=== PATIENT | male | born 1965 | race Caucasian/White ===

== ENCOUNTER → 2016-08-10 | Outpatient (CLI) | payer OTHER ==
[~2016-08-10] MED LIST: ASPEC81 PO; ASPI81TA28 PO; CARV3.122 PO; CHOL1000 PO; CYAN10005 PO; DOXY100C76 PO; FRCT/ PO; HYDR25TA4 PO; LISI-461 PO; PRLSR20 PO
[2016-08-10 17:56] LABS: BASO % 0.3 %; BASO ABS # 0.03 K/uL (0-0.2); COMPLETE YES; EOS % 2.4 %; HEMATOCRIT 48.8 % (42-52); IG% 0.2 %; LYMPH % 26.3 %; LYMPH ABS # 2.42 K/uL (1.2-3.4); MEAN CELL VOLUME 82.9 fL (80-100); MEAN CORPUSCULAR HEMOGLOBIN 29.9 pg (25-34); MEAN CORPUSCULAR HGB CONC 36.1 g/dl (32-36); MEAN PLATELET VOLUME 9.7 fL (7.4-10.4); MONO % 5.4 %; NEUT % 65.4 %; PLATELET COUNT 254 K/uL (130-400); RED BLOOD COUNT 5.89 M/uL (4.7-6.1)
[2016-08-10 18:48] LABS: LYME DISEASE AB IGG NEG (NEG)
[2016-08-10 18:56] LABS: LYME DISEASE AB IGM EQUIVOCAL (NEG)
[2016-08-17 01:56] LABS: 18KDIGG BAND NONREACTIVE (NONREACTIVE); 23KDIGG BAND NONREACTIVE (NONREACTIVE); 23KDIGM BAND NONREACTIVE (NONREACTIVE); 28KDIGG BAND NONREACTIVE (NONREACTIVE); 30KDIGG BAND NONREACTIVE (NONREACTIVE); 39KDIGG BAND NONREACTIVE (NONREACTIVE); 39KDIGM BAND NONREACTIVE (NONREACTIVE); 41KDIGG BAND REACTIVE (NONREACTIVE); 41KDIGM BAND REACTIVE (NONREACTIVE); 45KDIGG BAND NONREACTIVE (NONREACTIVE); 58KDIGG BAND NONREACTIVE (NONREACTIVE); 66KDIGG BAND NONREACTIVE (NONREACTIVE); 93KDIGG BAND NONREACTIVE (NONREACTIVE)
== END | disposition home or self-care (01) ==
LOC: C.LABPVFM 15:03
PROVIDERS: ATTEND Nurse Practitioner Family
DX: I10 Essential (primary) hypertension (principal); R07.9 Chest pain, unspecified

== ENCOUNTER 2016-08-14 13:40 | Inpatient (IN) | payer OTHER ==
[~2016-08-14] VITALS: Ht 170.2 cm; Wt 96.1 kg
[~2016-08-14 13:40] MED LIST changes: -ASPI81TA28 PO; -CARV3.122 PO; -CHOL1000 PO; -CYAN10005 PO; -DOXY100C76 PO; -FRCT/ PO; -HYDR25TA4 PO; -PRLSR20 PO
[2016-08-14] MEDS ORDERED: ONDANSETRON INJ 2 MG/ML 2 ML VIAL IV STA (13:52)
--- NOTE | 2016-08-14 14:02 | EMERGENCY ROOM VISIT NOTE ---
History Report prepared by Ana: Elizabeth Garcia Under the Supervision of: Dr. Grecia Waller M.D. First contact with patient: 13:50 Chief Complaint: ILLNESS Stated Complaint: LYME DISEASE, WEAK, DIZZY History of Present Illness The patient is a 51 year old male who presents to the Emergency Room with complaints of worsening weakness for the past several weeks. He reports he was first diagnosed with Lyme disease last January. He began to feel unwell again over the past few weeks and was placed on Doxycycline 3 days ago. He has also had more recent lab work done, but the western blot test has not come back yet, so his doctor told him to come to the ED if his symptoms worsened. In addition to weakness, the patient also complains of feeling lightheaded, experiencing headaches and intermittent chest pain and shortness of breath. The chest pain does not worsen on exertion. Ibuprofen taken last night provided some relief of his headache. The patient is a former smoker and admits to a history of hypertension. He denies any recent coughing or fevers. Source of History: patient Onset: past several weeks Position: other (global) Timing: worsening Associated Symptoms: + SOB, + chest pain, + headache, No cough, No fevers Review of Systems See HPI for pertinent positives & negatives. A total of 10 systems reviewed and were otherwise negative. Past Medical & Surgical Medical Problems: (1) Benign essential hypertension (2) Intractable headache Social History Smoking Status: Former Smoker Alcohol Use: occasionally Drug Use: none Marital Status: single Housing Status: lives with family Occupation Status: employed Current/Historical Medications Scheduled Aspirin (Aspirin Ec), 81 MG PO DAILY Carvedilol (Coreg), 3.125 MG PO DAILY Cholecalciferol (Vitamin D3), 1 TAB PO DAILY Cyanocobalamin (Vitamin B-12), 1,000 MCG PO DAILY Doxycycline Monohydrate (Monodox), 100 MG PO BID Hydrochlorothiazide (Hctz), 25 MG PO DAILY Lisinopril (Zestril), 10 MG PO DAILY Omeprazole (Prilosec), 20 MG PO DAILY Allergies Coded Allergies: No Known Allergies (Verified , 08/14/16) Physical Exam Vital Signs Date Time Temp Pulse Resp B/P Pulse Ox O2 Delivery O2 Flow Rate FiO2 08/14/16 18:04 74 16 120/74 95 08/14/16 16:38 74 16 118/76 97 08/14/16 15:10 74 18 120/80 97 08/14/16 14:57 76 08/14/16 14:49 97 Nasal Cannula 2.0 08/14/16 14:44 72 20 111/73 92 Room Air 08/14/16 13:43 36.4 88 18 137/97 98 Room Air Physical Exam Vital signs reviewed. General: Well-appearing 51 year old male, in no significant distress. HEENT: No scleral icterus, PERRLA, neck supple. Atraumatic. Cardiovascular: Regular rate and rhythm, no extra sounds. Pulmonary: Clear to auscultation bilaterally, normal work of breathing. Abdomen: Soft, nontender, nondistended, positive bowel sounds. Musculoskeletal: Atraumatic, no peripheral edema. Neurologic: Patient awake alert and oriented x 3, full strength in all 4 extremities. Cranial nerves 2 through 12 grossly intact. No meningeal signs. Skin: Warm, dry, no rash Medical Decision & Procedures ER Provider Diagnostic Interpretation: This X-Ray was reviewed and interpreted by myself and the radiologist. CHEST ONE VIEW PORTABLE IMPRESSION: No acute cardiopulmonary findings. Electronically signed by: Omero Browning M.D. 08/14/2016 2:17 PM Laboratory Results Test 08/14/16 14:13 08/14/16 14:16 08/14/16 14:34 08/14/16 16:50 Erythrocyte Sedimentation Rate 16 mm/hr (0-14) Total Creatine Kinase 84 U/L (39-308) Creatine Kinase MB 0.6 ng/ml (0.5-3.6) Creatine Kinase MB Ratio 0.7 (0-3.0) C-Reactive Protein 0.58 mg/dl (0-0.29) Thyroid Stimulating Hormone (TSH) 1.680 uIu/ml (0.300-4.500) Bedside D-Dimer > 450 ng/mlFEU (0-450) Bedside Troponin I 0.000 ng/ml (0-0.045) Urine Color YELLOW Urine Appearance CLOUDY (CLEAR) Urine pH 5.0 (4.5-7.5) Urine Specific [place] 1.013 (1.000-1.030) Urine Protein NEG (NEG) Urine Glucose (UA) NEG (NEG) Urine Ketones NEG (NEG) Urine Occult Blood NEG (NEG) Urine Nitrite NEG (NEG) Urine Bilirubin NEG (NEG) Urine Urobilinogen NEG (NEG) Urine Leukocyte Esterase NEG (NEG) Urine WBC (Auto) 0 /hpf (0-5) Urine RBC (Auto) 0-4 /hpf (0-4) Urine Hyaline Casts (Auto) 1-5 /lpf (0-5) Urine Epithelial Cells (Auto) 0-5 /lpf (0-5) Urine Bacteria (Auto) NEG (NEG) CSF Color RED CSF Appearance BLOODY CSF WBC 10 /uL (0-5) CSF RBC 6000 /uL (0) CSF Xanthrochromic NO XANTHOCHROMIA CSF Cell Count Tube # 4 CSF Mononuclear WBCs % 60.0 % CSF Polynuclear WBCs (%) 40.0 % CSF Chemistry Tube # 2 CSF Glucose 66 mg/dl (40-70) CSF Total Protein 70.4 mg/dl (15.0-45.0) Laboratory results per my review. Medications Administered Medications (Trade) Dose Ordered Sig/Rhea Route Start Time Stop Time Status Last Admin Dose Admin Ondansetron HCl (Zofran Inj) 4 mg NOW STAT IV 08/14/16 13:52 08/14/16 13:55 DC 08/14/16 14:41 4 MG Ketorolac Tromethamine 30 mg 30 mg NOW STAT IV 08/14/16 15:44 08/14/16 15:45 DC 08/14/16 15:51 30 MG Sodium Chloride (Nss 1000ml) 1,000 ml @ 999 mls/hr Q1H1M STAT IV 08/14/16 15:44 08/14/16 16:44 DC 08/14/16 15:52 999 MLS/HR Ceftriaxone Sodium 2 gm 2 gm NOW STAT IV 08/14/16 17:25 08/14/16 17:26 DC 08/14/16 17:57 2 GM Sodium Chloride (Nss 1000ml) 1,000 ml @ 999 mls/hr Q1H1M STAT IV 08/14/16 17:33 08/14/16 18:33 DC 08/14/16 17:57 999 MLS/HR ECG Indication: weakness Rate (beats per minute): 71 Rhythm: normal sinus (normal sinus rhythm) Findings: nonspecific-ST abn (Inferior, Lateral), no ectopy, other (Previous septal infarct) Change: no significant change (No change from previous EKG performed in June 2011) ED Course 1351: Past medical records reviewed. The patient was evaluated in room A10. A complete history and physical examination was performed. 1352: Zofran 4 mg IV. 1445: Nursing informed me the patients Oxygen is 92% and he is complaining of a headache. I will place orders. 1446: Dilaudid 1 mg IV. Medical Decision Weakness: Etiologies such as metabolic, infection, hypo/hyperglycemia, electrolyte abnormalities, cardiac sources, intracerebral event, toxicologic, neurologic, as well as others were entertained. This patient was evaluated and appeared to be in no significant distress. IV access was obtained and laboratory work was drawn. Laboratory work is fairly unrevealing including a normal WBC and negative cardiac enzymes. D-dimer is elevated. CT scan of the chest was performed and reveals no evidence of PE or focal lung consolidation. The patient did receive IV Zofran and IV hydration. He complained of persistent headache on my reevaluation between a 4 and an 8. Patient did receive 30 mg of IV Toradol and continued IV hydration. CT scan of the head had been performed earlier in the shift and was negative. The patient was signed out to Dr. Benitez at the change of shift, pending resolution of the headache. Please see his notes for further details. The patient and family are aware of the plan and agree. Impression Primary Impression: Atypical chest pain Additional Impression: Intractable headache Scribe Attestation The scribe's documentation has been prepared under my direction and personally reviewed by me in its entirety. I confirm that the note above accurately reflects all work, treatment, procedures, and medical decision making performed by me. Departure Information Referrals Lyly Lo C.R.N.P (PCP) Patient Instructions My [facility] Problem Qualifiers Additional Impression: Intractable headache Headache chronicity pattern: acute headache
--- NOTE | 2016-08-14 14:18 | DIAGNOSTIC IMAGING REPORT ---
CHEST ONE VIEW PORTABLE CLINICAL HISTORY: Weakness, fatigue and chest pain. COMPARISON STUDY: Chest radiograph June 21, [address] November 10, 2011. FINDINGS: Lung volumes are normal. No consolidation is identified. There is no pneumothorax or pleural effusion. Cardiac size is normal. Mediastinal contours are normal. There is no evidence of pulmonary edema. IMPRESSION: No acute cardiopulmonary findings. Electronically signed by: Omero Browning M.D. 08/14/2016 2:17 PM Dictated Date/Time: 08/14/2016 2:16 PM
[2016-08-14 14:23] LABS: BASO % 0.4 %; BASO ABS # 0.03 K/uL (0-0.2); COMPLETE YES; EOS % 2.9 %; HEMATOCRIT 47.6 % (42-52); IG% 0.4 %; LYMPH % 32.4 %; LYMPH ABS # 2.34 K/uL (1.2-3.4); MEAN CELL VOLUME 82.1 fL (80-100); MEAN CORPUSCULAR HGB CONC 36.6 g/dl (32-36); MONO % 6.1 %; NEUT % 57.8 %; PLATELET COUNT 230 K/uL (130-400); WHITE BLOOD COUNT 7.22 K/uL (4.8-10.8)
--- NOTE | 2016-08-14 14:35 | DIAGNOSTIC IMAGING REPORT ---
CT OF THE HEAD WITHOUT CONTRAST CLINICAL HISTORY: Headache. Dizzy. COMPARISON STUDY: Head CT and MRI of the brain May 29, 2008. CT DOSE: 537.48 mGy.cm TECHNIQUE: Helical axial images of the head were obtained without IV contrast. Automated exposure control was utilized for the study. FINDINGS: No acute intracranial hemorrhage, midline shift or mass effect is present. Brain findings normal. Ventricular system is normal. Basilar cisterns are patent. There are no extra-axial collections. Christensen-white differentiation is maintained. There are no findings to suggest acute dural sinus thrombosis or acute territorial infarct. There may be trace fluid within the right mastoid air cells. There are no significant calvarial abnormalities. Visualized portions of the sinuses are clear. IMPRESSION: No acute intracranial findings. Electronically signed by: Omero Browning M.D. 08/14/2016 2:34 PM Dictated Date/Time: 08/14/2016 2:32 PM
[2016-08-14] MEDS ORDERED: DOXY100C76 PO (14:40)
[2016-08-14] MEDS ORDERED: CARV3.122 PO (14:40)
[2016-08-14] MEDS ORDERED: CHOL1000 PO (14:40)
[2016-08-14] MEDS ORDERED: CYAN10005 PO (14:40)
[2016-08-14] MEDS ORDERED: PRLSR20 PO (14:40)
[2016-08-14] MEDS ORDERED: ASPI81TA28 PO (14:40)
[2016-08-14] MEDS ORDERED: HYDR25TA4 PO (14:40)
[2016-08-14 14:41] LABS: BUN/CREATININE RATIO 25.2 (10-20); CALCIUM 8.8 mg/dl (8.5-10.1); MAGNESIUM 2.2 mg/dl (1.8-2.4); POTASSIUM 3.9 mmol/L (3.5-5.1)
[2016-08-14] MEDS ORDERED: HYDROmorphone INJ 1 MG/ML SYR IV STA (14:46)
[2016-08-14 14:51] LABS: CKMB/CK RATIO 0.7 (0-3.0); THYROID STIMULATING HORMONE 1.68 uIu/ml (0.300-4.500)
[2016-08-14 14:58] LABS: URINE APPEARANCE CLOUDY (CLEAR); URINE BILIRUBIN NEG (NEG); URINE COLOR YELLOW; URINE EPITHELIAL CELL AUTO 0-5 /lpf (0-5); URINE NITRITE NEG (NEG); URINE SPECIFIC GRAVITY 1.013 (1.000-1.030); UROBILINOGEN NEG (NEG); ZZUR CULT IF INDIC CLEAN CATCH NO
[2016-08-14 15:00] LABS: MANUAL MICROSCOPIC REQUIRED? NO; REVIEW REQ? NO
[2016-08-14] MEDS ORDERED: OPTIRAY 320 IV PRN (15:00)
--- NOTE | 2016-08-14 15:38 | DIAGNOSTIC IMAGING REPORT ---
CT ANGIOGRAPHY OF THE CHEST, PULMONARY EMBOLUS PROTOCOL CLINICAL HISTORY: Chest pain and shortness of breath. Lyme disease. COMPARISON STUDY: Chest CT November 10, 2011 and chest radiograph performed earlier today. TECHNIQUE: Following IV administration of 119 mL of Optiray-320, helical axial images of the chest were obtained utilizing the pulmonary embolus protocol. Maximal intensity projections and sagittal and coronal reformats were viewed on an independent 3D workstation. IV contrast was administered without complication. CT DOSE: 573.20 mGy.cm FINDINGS: No pulmonary emboli are identified. There is no evidence of thoracic aortic dissection. The size of the heart is normal. A few prominent bilateral hilar lymph nodes are unchanged since CT of November 10, 2011. Linear and groundglass opacities favor atelectasis. There is no consolidation to suggest pneumonia. No pneumothorax or pleural effusion is present. Multiple pulmonary nodules are present. These are present on CT of November 10, 2011 and are likely benign. The bony thorax is unremarkable. There are gallstones within the gallbladder. IMPRESSION: 1. No pulmonary emboli identified. 2. No acute intrathoracic findings. 3. Cholelithiasis. Electronically signed by: Omero Browning M.D. 08/14/2016 3:37 PM Dictated Date/Time: 08/14/2016 3:27 PM
[2016-08-14] MEDS ORDERED: KETOROLAC TROMETHAMINE 30 MG/ML VIAL IV STA (15:44)
[2016-08-14] MEDS ORDERED: SODIUM CHLORIDE 0.9% 1000ML 1,000 ML IV STA ×2 (15:44→17:33)
--- NOTE | 2016-08-14 16:55 | EMERGENCY ROOM VISIT NOTE ---
ED Visit Note First contact with patient: 16:25 I received this patient at change of shift signout from Dr. Waller. Please see her note for complete history and physical. The patient is a 51-year-old male who presented to the emergency department for an evaluation of headache chest pain difficulty breathing and body aches. The patient states that he had a similar episode last fall and was diagnosed with Lyme disease. He went to see his primary care physician and was started on doxycycline a few days ago. He states that his symptoms are not improved and he feels that they're actually getting worse. The patient mostly complains of headache. He was seen by Dr. Waller and had a CT the chest chest x-ray and a CT the head as well as blood work. He was treated with IV fluids but was not feeling much better. I discussed the patient's laboratory and radiographic studies with him. He still states that the headache is the main complaint that he has. For this reason a lumbar puncture was undertaken to rule out meningitis including Lyme meningitis. The patient had a traumatic lumbar puncture but it started to clear from tube 1 to tube 4. Review the patient's MERCHANDISE DIRECTOR revealed an elevated protein in the CSF as well as elevated white blood cells in the CSF. This still could be consistent with a traumatic lumbar puncture however given the patient's symptoms he was given IV antibiotic. Because of ongoing symptoms I discussed this case with the on-call [facility] hospitalist group. They've agreed to evaluate the patient in the emergency apartment for further management and disposition. Lumbar Puncture Indication: Headache. Verbal consent was obtained after the risks and benefits were explained, including but not limited to headache, bleeding/clotting, scarring, infection, pain, and bone/joint/nerve damage. At this time, the risks of the procedure are less than the risks of NOT performing the procedure. A time out was taken and the correct patient and site identified. The patient was placed in the seated position and the back was prepped with betadine and draped in the standard fashion. The L3 intervertebral space was identified, anesthetized locally with 1 % lidocaine without epinephrine, and the spinal needle was inserted through the skin with the bevel parallel to the dural fibers. The needle was carefully advanced into the lumbar cistern and 4 tubes of blood tinged CSF was obtained. The stylet was replaced and the needle was removed. A bandaid was placed and the patient was placed in the supine position. The patient tolerated the procedure well and there were no complications.
[2016-08-14 17:03] LABS: CSF CHEMISTRY TUBE # 2
[2016-08-14 17:09] LABS: CSF APPEARANCE BLOODY; CSF COLOR RED
[2016-08-14 17:16] LABS: CSF APPEARANCE BLOODY; CSF COLOR RED; CSF XANTHOCHROMIC NO XANTHOCHROMIA
[2016-08-14 17:17] LABS: CSF MONONUC RELAT 52.6 %; CSF TOTAL PROTEIN 70.4 mg/dl (15.0-45.0)
[2016-08-14] MEDS ORDERED: CEFTRIAXONE SOD INJ 1 GM ADDVIAL IV STA (17:25)
[2016-08-14] MEDS ORDERED: ALUMINUM/MAGNESIUM/SIMETH (MAALOX MAX) 30 ML UDC PO PRN (19:00)
[2016-08-14] MEDS ORDERED: ONDANSETRON INJ 2 MG/ML 2 ML VIAL IV PRN (19:00)
[2016-08-14] MEDS ORDERED: ZOLPIDEM TARTRATE 5 MG TAB PO PRN (19:00)
[2016-08-14] MEDS: ACETAMINOPHEN 325 MG TAB PO PRN (20:47)
[2016-08-14 22:03] VITALS: BP 127/86; PULSE 74; TEMP 36.8; O2SAT 97; Ht 170.2 cm; Wt 96.1 kg
[2016-08-14] MEDS: KETOROLAC TROMETHAMINE 30 MG/ML VIAL IV PRN (22:55)
--- NOTE | 2016-08-14 23:49 | History and Physical ---
History & Physical Date & Time of Service: Aug 14, 2016 at 23:23 Chief Complaint: Intractable Headache Primary Care Physician: Lyly Lo C.R.N.P History of Present Illness Source: patient, family Patient is a 51-year-old male with a history of hypertension, Lyme disease, GERD , asymptomatic cholelithiasis, vitamin D deficiency, and vitamin B 12 deficiency , who presents to the ER with severe headache, diffuse arthralgias, and left sided chest pain with associated shortness of breath. He was diagnosed with and treated for acute Lyme disease back in January 2016 when he had headache and diffuse arthralgias as well as profound fatigue. He reports that 5 days ago , he developed the exact same symptoms with severe frontal headache, diffuse arthralgias, fatigue, as well as some left-sided chest pain with associated shortness of breath that initially was intermittent and then became constant for the last couple of days. The headache would come and go and did respond somewhat to ibuprofen at home. He denies fevers or a rash. The day after the symptoms started, he was seen by his PCP and had blood work which showed an equivocal Lyme IgM titer, and the Western blot is pending. When his symptoms persisted, he called his PCPs office 2 days later and he was called in doxycycline which she started the day prior to admission. When the headache persisted today, it prompted him to come to the emergency room. In the ER, he had a fairly normal CBC and CMP, was given IV fluids and Toradol which really helped his headache. He had a CT angiogram of the chest which was negative for PE or any other pulmonary or thoracic process. His troponin was negative, and his ECG did not show any acute signs of ischemia. Because of the persistent headache, the ER physician performed a lumbar puncture which was traumatic. On subsequent tubes of CSF, his white blood cell count was still somewhat bloody and had mildly elevated protein and 10 white blood cells. The fluid was sent for Lyme PCR and immunoblot. He was given Rocephin IV 2 g in the ER, and will be admitted for continued treatment for possible TELEVISION [employer]S TE[employer] Lyme disease and intractable headache. 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) Immunizations History of Influenza Vaccine: Yes History of Tetanus Vaccine?: Yes History of Pneumococcal: No History of Hepatitis B Vaccine: No Multi-Drug Resistant Organisms History of MDRO: No Allergies Coded Allergies: No Known Allergies (Verified , 08/14/16) Home Medications Scheduled Aspirin (Aspirin Ec), 81 MG PO DAILY Carvedilol (Coreg), 3.125 MG PO DAILY Cholecalciferol (Vitamin D3), 1 TAB PO DAILY Cyanocobalamin (Vitamin B-12), 1,000 MCG PO DAILY Doxycycline Monohydrate (Monodox), 100 MG PO BID Hydrochlorothiazide (Hctz), 25 MG PO DAILY Lisinopril (Zestril), 10 MG PO DAILY Omeprazole (Prilosec), 20 MG PO DAILY Review of Systems Constitutional: + fatigue, No chills, No fever, No sweats Eyes: No worsening of vision ENT: No hearing loss Respiratory: + shortness of breath, No cough Cardiovascular: + chest pain, No palpitations Abdomen: No GI bleeding, No constipation, No diarrhea, No nausea, No pain, No vomiting Musculoskeletal: + joint pain, + muscle pain Genitourinary - Male: No problem reported Neurologic: + problem reported (headache), No numbness/tingling, No paralysis, No weakness Psychiatric: No problem reported Endocrine: No problem reported Hematologic / Lymphatic: No problem reported Integumentary: No rash Allergic / Immunologic: No problem reported Physical Exam Vital Signs Date Time Temp Pulse Resp B/P Pulse Ox O2 Delivery O2 Flow Rate FiO2 08/14/16 22:03 36.8 74 16 127/86 97 Room Air 08/14/16 20:15 74 16 114/70 97 08/14/16 19:23 74 16 120/74 98 08/14/16 18:04 74 16 120/74 95 08/14/16 16:38 74 16 118/76 97 08/14/16 15:10 74 18 120/80 97 08/14/16 14:57 76 08/14/16 14:49 97 Nasal Cannula 2.0 08/14/16 14:44 72 20 111/73 92 Room Air 08/14/16 13:43 36.4 88 18 137/97 98 Room Air General Appearance: WD/WN, no apparent distress Head: normocephalic, atraumatic Eyes: normal inspection, PERRL, EOMI ENT: hearing grossly normal, pharynx normal Neck: supple, no adenopathy, thyroid normal, no JVD, no carotid bruits, trachea midline Respiratory/Chest: chest non-tender, lungs clear, normal breath sounds, no respiratory distress, no accessory muscle use Cardiovascular: regular rate, rhythm, no edema, no gallop, no murmur, normal peripheral pulses Abdomen/GI: normal bowel sounds, non tender, soft, no organomegaly, no pulsatile mass Back: normal inspection Extremities/Musculoskelatal: normal inspection, no calf tenderness, normal capillary refill, no pedal edema, normal range of motion Neurologic/Psych: title agent II-XII nml as tested, no motor/sensory deficits, alert, normal mood/affect, oriented x 3 Skin: normal color, warm/dry, no rash Lymphatic: no adenopathy Diagnostics Laboratory Results Results Past 24 Hours Test 08/14/16 14:13 08/14/16 14:16 08/14/16 14:34 08/14/16 16:50 Range/Units White Blood Count 7.22 4.8-10.8 K/uL Red Blood Count 5.80 4.7-6.1 M/uL Hemoglobin 17.4 14.0-18.0 g/dL Hematocrit 47.6 42-52 % Mean Corpuscular Volume 82.1 80-100 fL Mean Corpuscular Hemoglobin 30.0 25-34 pg Mean Corpuscular Hemoglobin Concent 36.6 32-36 g/dl Platelet Count 230 130-400 K/uL Mean Platelet Volume 9.0 7.4-10.4 fL Neutrophils (%) (Auto) 57.8 % Lymphocytes (%) (Auto) 32.4 % Monocytes (%) (Auto) 6.1 % Eosinophils (%) (Auto) 2.9 % Basophils (%) (Auto) 0.4 % Neutrophils # (Auto) 4.17 1.4-6.5 K/uL Lymphocytes # (Auto) 2.34 1.2-3.4 K/uL Monocytes # (Auto) 0.44 0.11-0.59 K/uL Eosinophils # (Auto) 0.21 0-0.5 K/uL Basophils # (Auto) 0.03 0-0.2 K/uL RDW Standard Deviation 38.5 36.4-46.3 fL RDW Coefficient of Variation 13.0 11.5-14.5 % Immature Granulocyte % (Auto) 0.4 % Immature Granulocyte # (Auto) 0.03 0.00-0.02 K/uL Erythrocyte Sedimentation Rate 16 0-14 mm/hr Sodium Level 137 136-145 mmol/L Potassium Level 3.9 3.5-5.1 mmol/L Chloride Level 101 98-107 mmol/L Carbon Dioxide Level 31 21-32 mmol/L Anion Gap 5.0 3-11 mmol/L Blood Urea Nitrogen 25 7-18 mg/dl Creatinine 1.00 0.60-1.40 mg/dl Est Creatinine Clear Calc Drug Dose 98.7 ml/min Estimated GFR () 102.0 Estimated GFR (Non- 88.0 BUN/Creatinine Ratio 25.2 10-20 Random Glucose 120 70-99 mg/dl Calcium Level 8.8 8.5-10.1 mg/dl Magnesium Level 2.2 1.8-2.4 mg/dl Total Bilirubin 1.4 0.2-1 mg/dl Direct Bilirubin 0.3 0-0.2 mg/dl Aspartate Amino Transf (AST/SGOT) 11 15-37 U/L Alanine Aminotransferase (ALT/SGPT) 30 12-78 U/L Alkaline Phosphatase 90 45-117 U/L Total Creatine Kinase 84 39-308 U/L Creatine Kinase MB 0.6 0.5-3.6 ng/ml Creatine Kinase MB Ratio 0.7 0-3.0 C-Reactive Protein 0.58 0-0.29 mg/dl Total Protein 8.3 6.4-8.2 gm/dl Albumin 4.2 3.4-5.0 gm/dl Thyroid Stimulating Hormone (TSH) 1.680 0.300-4.500 uIu/ml Bedside D-Dimer > 450 0-450 ng/mlFEU Bedside Troponin I 0.000 0-0.045 ng/ml Urine Color YELLOW Urine Appearance CLOUDY CLEAR Urine pH 5.0 4.5-7.5 Urine Specific [place] 1.013 1.000-1.030 Urine Protein NEG NEG Urine Glucose (UA) NEG NEG Urine Ketones NEG NEG Urine Occult Blood NEG NEG Urine Nitrite NEG NEG Urine Bilirubin NEG NEG Urine Urobilinogen NEG NEG Urine Leukocyte Esterase NEG NEG Urine WBC (Auto) 0 0-5 /hpf Urine RBC (Auto) 0-4 0-4 /hpf Urine Hyaline Casts (Auto) 1-5 0-5 /lpf Urine Epithelial Cells (Auto) 0-5 0-5 /lpf Urine Bacteria (Auto) NEG NEG CSF Color RED CSF Appearance BLOODY CSF WBC 10 0-5 /uL CSF RBC 6000 0 /uL CSF Xanthrochromic NO XANTHOCHROMIA CSF Cell Count Tube # 4 CSF Mononuclear WBCs % 60.0 % CSF Polynuclear WBCs (%) 40.0 % CSF Chemistry Tube # 2 CSF Glucose 66 40-70 mg/dl CSF Total Protein 70.4 15.0-45.0 mg/dl Test 08/14/16 18:51 Range/Units Microbiology Results 08/14/16 Gram Stain - Final, Resulted 08/14/16 CSF Culture, Resulted Pending Diagnostic Radiology Head CT negative CT angiogram chest-only shows cholelithiasis, negative for PE CXR normal EKG ECG with normal sinus rhythm, possible septal infarct changed from previous in June 2011 Review of outpatient record shows he had a normal stress echocardiogram in November 2011 Impression Assessment and Plan Patient is a 51-year-old male with a history of hypertension, Lyme disease, GERD , asymptomatic cholelithiasis, vitamin D deficiency, and vitamin B 12 deficiency , who presents to the ER with severe headache, diffuse arthralgias, and left sided chest pain with associated shortness of breath. The day after the symptoms started, he was seen by his PCP and had blood work which showed an equivocal Lyme IgM titer, and the Western blot is pending. When his symptoms persisted, he called his PCPs office 2 days later and he was called in doxycycline which she started the day prior to admission. When the headache persisted today, it prompted him to come to the emergency room. In the ER, he had a fairly normal CBC and CMP, was given IV fluids and Toradol which really helped his headache. He had a CT angiogram of the chest which was negative for PE or any other pulmonary or thoracic process. His troponin was negative, and his ECG did not show any acute signs of ischemia. Lumbar puncture was traumatic. On subsequent tubes of CSF, his white blood cell count was still somewhat bloody and had mildly elevated protein and 10 white blood cells. The fluid was sent for Lyme testing. Intractable headache, arthralgias, equivocal Lyme IgM-He was given Rocephin IV 2 g in the ER, and will be admitted for continued treatment for possible TELE[employer]S TE[employer] Lyme disease and intractable headache. -Continue Toradol when necessary headache -Follow up on CSF studies including Lyme PCR -Follow up on Lyme disease Western blot performed as an outpatient several days ago -Consult infectious disease for further recommendations on antibiotic regimen Hypertension, chest pain with associated shortness of breath-his blood pressure is stable. ECG with possible new septal infarct since 2011, had normal stress echocardiogram in November 2011 and has been asymptomatic since then. Likely not a significant finding. His ongoing chest pain is constant in nature for several days and his initial troponin was negative, making this not likely to be cardiac in nature. It is likely musculoskeletal related to his probable Lyme disease. -Continue carvedilol, hydrochlorothiazide, and lisinopril as well as baby aspirin GERD-stable -Continue PPI Vitamin D deficiency, vitamin B12 deficiency-stable -Continue by mouth B12 and vitamin D DVT prophylaxis-SCDs Disposition-full code Advanced Directives Existing Living Will: No Existing Power of Collection Systems Modeler: No VTE Prophylaxis VTE Risk Assessment Done? Y/N: Yes Risk Level: Low Additional Copies To Lyly Lo [email or web address]
[2016-08-15] VITALS: O2SAT 97
[2016-08-15 07:32] LABS: BASO % 0.4 %; BASO ABS # 0.03 K/uL (0-0.2); COMPLETE YES; EOS % 2.6 %; HEMATOCRIT 40.1 % (42-52); IG% 0.4 %; LYMPH % 39.1 %; LYMPH ABS # 2.84 K/uL (1.2-3.4); MEAN CELL VOLUME 81.3 fL (80-100); MEAN CORPUSCULAR HEMOGLOBIN 29.8 pg (25-34); MEAN CORPUSCULAR HGB CONC 36.7 g/dl (32-36); MEAN PLATELET VOLUME 8.9 fL (7.4-10.4); MONO % 5.4 %; NEUT % 52.1 %; PLATELET COUNT 203 K/uL (130-400); RED BLOOD COUNT 4.93 M/uL (4.7-6.1); WHITE BLOOD COUNT 7.26 K/uL (4.8-10.8)
[2016-08-15 08:04] VITALS: BP 111/75; PULSE 58; TEMP 36.6; O2SAT 97
[2016-08-15 08:08] LABS: BUN/CREATININE RATIO 31.4 (10-20); CALCIUM 8.4 mg/dl (8.5-10.1)
[2016-08-15] MEDS: PANTOprazole SOD 40 MG TAB PO SCH (08:21)
[2016-08-15] MEDS: CHOLECALCIFEROL 1000 INTER.UNIT TAB PO SCH (08:22)
[2016-08-15] MEDS: CYANOCOBALAMIN 500 MCG TAB (VIT B-12) PO SCH (08:22)
[2016-08-15] MEDS: CARVEDILOL 3.125 MG TAB PO SCH (08:22)
[2016-08-15] MEDS: LISINOPRIL 10 MG TAB PO SCH (08:22)
[2016-08-15] MEDS: HYDROCHLOROTHIAZIDE 25 MG TAB PO SCH (08:23)
[2016-08-15] MEDS: ASPIRIN 81 MG ECTAB PO SCH (08:23)
--- NOTE | 2016-08-15 09:56 | Progress Note ---
Progress Note Date of Service Aug 15, 2016. Progress Note ID Consult Dictated # [id number] A/P: 1. Meningitis - Lyme vs viral -continue ctx pending lyme studies, clinically improved -will follow, thank you
[2016-08-15] MEDS: KETOROLAC TROMETHAMINE 30 MG/ML VIAL IV PRN ×2 (11:56→20:45)
--- NOTE | 2016-08-15 13:17 | Progress Note ---
Subjective Date of Service: Aug 15, 2016. Subjective Pt evaluation today including: conversation w/ patient, physical exam, chart review, lab review, review of studies, review of inpatient medication list Pt reports feeling better Mild THOMAS No fevers or chills No joint pains Denies any other concerns Problem List Medical Problems: (1) Atypical chest pain Status: Acute (2) Headache behind the eyes Status: Acute Review of Systems Constitutional: No chills, No fever Respiratory: No cough, No dyspnea on exertion, No shortness of breath, No sputum, No wheezing Cardiac: No chest pain, No orthopnea Abdomen: No diarrhea, No nausea, No pain, No vomiting Musculoskeletal: No joint pain, No muscle pain Male : No dysuria, No urinary frequency Objective Vital Signs Date Time Temp Pulse Resp B/P Pulse Ox O2 Delivery O2 Flow Rate FiO2 08/15/16 08:04 36.6 58 19 111/75 97 Room Air 08/15/16 08:00 Room Air 08/15/16 00:00 97 Room Air 08/14/16 22:03 36.8 74 16 127/86 97 Room Air 08/14/16 20:15 74 16 114/70 97 08/14/16 19:23 74 16 120/74 98 08/14/16 18:04 74 16 120/74 95 08/14/16 16:38 74 16 118/76 97 08/14/16 15:10 74 18 120/80 97 08/14/16 14:57 76 08/14/16 14:49 97 Nasal Cannula 2.0 08/14/16 14:44 72 20 111/73 92 Room Air 08/14/16 13:43 36.4 88 18 137/97 98 Room Air Physical Exam General Appearance: WD/WN, no apparent distress Neck: supple, no adenopathy Respiratory/Chest: lungs clear, normal breath sounds Cardiovascular: no edema, no gallop Abdomen: non tender, soft Neurologic/Psychiatric: alert, normal mood/affect, oriented x 3 Laboratory Results Last 24 Hours Test 08/14/16 14:13 08/14/16 14:16 08/14/16 14:34 08/14/16 16:50 White Blood Count 7.22 K/uL Red Blood Count 5.80 M/uL Hemoglobin 17.4 g/dL Hematocrit 47.6 % Mean Corpuscular Volume 82.1 fL Mean Corpuscular Hemoglobin 30.0 pg Mean Corpuscular Hemoglobin Concent 36.6 g/dl Platelet Count 230 K/uL Mean Platelet Volume 9.0 fL Neutrophils (%) (Auto) 57.8 % Lymphocytes (%) (Auto) 32.4 % Monocytes (%) (Auto) 6.1 % Eosinophils (%) (Auto) 2.9 % Basophils (%) (Auto) 0.4 % Neutrophils # (Auto) 4.17 K/uL Lymphocytes # (Auto) 2.34 K/uL Monocytes # (Auto) 0.44 K/uL Eosinophils # (Auto) 0.21 K/uL Basophils # (Auto) 0.03 K/uL RDW Standard Deviation 38.5 fL RDW Coefficient of Variation 13.0 % Immature Granulocyte % (Auto) 0.4 % Immature Granulocyte # (Auto) 0.03 K/uL Erythrocyte Sedimentation Rate 16 mm/hr Sodium Level 137 mmol/L Potassium Level 3.9 mmol/L Chloride Level 101 mmol/L Carbon Dioxide Level 31 mmol/L Anion Gap 5.0 mmol/L Blood Urea Nitrogen 25 mg/dl Creatinine 1.00 mg/dl Est Creatinine Clear Calc Drug Dose 98.7 ml/min Estimated GFR () 102.0 Estimated GFR (Non- 88.0 BUN/Creatinine Ratio 25.2 Random Glucose 120 mg/dl Calcium Level 8.8 mg/dl Magnesium Level 2.2 mg/dl Total Bilirubin 1.4 mg/dl Direct Bilirubin 0.3 mg/dl Aspartate Amino Transf (AST/SGOT) 11 U/L Alanine Aminotransferase (ALT/SGPT) 30 U/L Alkaline Phosphatase 90 U/L Total Creatine Kinase 84 U/L Creatine Kinase MB 0.6 ng/ml Creatine Kinase MB Ratio 0.7 C-Reactive Protein 0.58 mg/dl Total Protein 8.3 gm/dl Albumin 4.2 gm/dl Thyroid Stimulating Hormone (TSH) 1.680 uIu/ml Bedside D-Dimer > 450 ng/mlFEU Bedside Troponin I 0.000 ng/ml Urine Color YELLOW Urine Appearance CLOUDY Urine pH 5.0 Urine Specific [place] 1.013 Urine Protein NEG Urine Glucose (UA) NEG Urine Ketones NEG Urine Occult Blood NEG Urine Nitrite NEG Urine Bilirubin NEG Urine Urobilinogen NEG Urine Leukocyte Esterase NEG Urine WBC (Auto) 0 /hpf Urine RBC (Auto) 0-4 /hpf Urine Hyaline Casts (Auto) 1-5 /lpf Urine Epithelial Cells (Auto) 0-5 /lpf Urine Bacteria (Auto) NEG CSF Color RED CSF Appearance BLOODY CSF WBC 10 /uL CSF RBC 6000 /uL CSF Xanthrochromic NO XANTHOCHROMIA CSF Cell Count Tube # 4 CSF Mononuclear WBCs % 60.0 % CSF Polynuclear WBCs (%) 40.0 % CSF Chemistry Tube # 2 CSF Glucose 66 mg/dl CSF Total Protein 70.4 mg/dl Test 08/15/16 06:54 White Blood Count 7.26 K/uL Red Blood Count 4.93 M/uL Hemoglobin 14.7 g/dL Hematocrit 40.1 % Mean Corpuscular Volume 81.3 fL Mean Corpuscular Hemoglobin 29.8 pg Mean Corpuscular Hemoglobin Concent 36.7 g/dl Platelet Count 203 K/uL Mean Platelet Volume 8.9 fL Neutrophils (%) (Auto) 52.1 % Lymphocytes (%) (Auto) 39.1 % Monocytes (%) (Auto) 5.4 % Eosinophils (%) (Auto) 2.6 % Basophils (%) (Auto) 0.4 % Neutrophils # (Auto) 3.78 K/uL Lymphocytes # (Auto) 2.84 K/uL Monocytes # (Auto) 0.39 K/uL Eosinophils # (Auto) 0.19 K/uL Basophils # (Auto) 0.03 K/uL RDW Standard Deviation 38.2 fL RDW Coefficient of Variation 12.8 % Immature Granulocyte % (Auto) 0.4 % Immature Granulocyte # (Auto) 0.03 K/uL Sodium Level 139 mmol/L Potassium Level 4.0 mmol/L Chloride Level 105 mmol/L Carbon Dioxide Level 25 mmol/L Anion Gap 9.0 mmol/L Blood Urea Nitrogen 31 mg/dl Creatinine 1.00 mg/dl Est Creatinine Clear Calc Drug Dose 98.7 ml/min Estimated GFR () 102.0 Estimated GFR (Non- 88.0 BUN/Creatinine Ratio 31.4 Random Glucose 96 mg/dl Calcium Level 8.4 mg/dl Magnesium Level 2.0 mg/dl Total Bilirubin 0.7 mg/dl Direct Bilirubin 0.1 mg/dl Aspartate Amino Transf (AST/SGOT) 10 U/L Alanine Aminotransferase (ALT/SGPT) 21 U/L Alkaline Phosphatase 74 U/L Total Protein 6.6 gm/dl Albumin 3.3 gm/dl Vitamin B12 Level 918 pg/mL Assessment and Plan Patient is a 51-year-old male with a history of hypertension, Lyme disease, GERD , asymptomatic cholelithiasis, vitamin D deficiency, and vitamin B 12 deficiency , who presents to the ER with severe headache, diffuse arthralgias, and left sided chest pain with associated shortness of breath. The day after the symptoms started, he was seen by his PCP and had blood work which showed an equivocal Lyme IgM titer, and the Western blot is pending. When his symptoms persisted, he called his PCPs office 2 days later and he was called in doxycycline which she started the day prior to admission. When the headache persisted today, it prompted him to come to the emergency room. In the ER, he had a fairly normal CBC and CMP, was given IV fluids and Toradol which really helped his headache. He had a CT angiogram of the chest which was negative for PE or any other pulmonary or thoracic process. His troponin was negative, and his ECG did not show any acute signs of ischemia. Lumbar puncture was traumatic. On subsequent tubes of CSF, his white blood cell count was still somewhat bloody and had mildly elevated protein and 10 white blood cells. 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 -Continue Toradol when necessary headache, reports THOMAS mild -Follow up on CSF studies including Lyme PCR -Follow up on Lyme disease Western blot performed as an outpatient several days ago -Consult infectious disease, appreciate recs, await cx results Hypertension, chest pain with associated shortness of breath-his blood pressure is stable. ECG with possible new septal infarct since 2011, had normal stress echocardiogram in November 2011 and has been asymptomatic since then. Likely not a significant finding. His ongoing chest pain is constant in nature for several days and his initial troponin was negative, making this not likely to be cardiac in nature. It is likely musculoskeletal related to his probable Lyme disease. -Continue carvedilol, hydrochlorothiazide, and lisinopril as well as baby aspirin GERD-stable -Continue PPI Vitamin D deficiency, vitamin B12 deficiency-stable -Continue by mouth B12 and vitamin D DVT prophylaxis-SCDs FULL CODE
--- NOTE | 2016-08-15 14:54 | INFECT. DISEASE CONSULTATION ---
DATE OF CONSULTATION: 08/15/2016 REQUESTING PHYSICIAN: Dr. Mabry. HISTORY OF PRESENT ILLNESS: This is a 51-year-old gentleman who was admitted to the hospital after he had worsening headache. He states that he began feeling symptoms of fatigue, muscle pain and joint pain last Tuesday. He did leave work early and did not return to work throughout the week. The symptoms continued to worsen. He just followed up at his primary care office on Tuesday and was started on doxycycline for suspected Lyme disease. The Lyme titer was done at that time, however, the results are pending. He continued to feel unwell and on Tuesday, presented to the Emergency Room with worsening headache. He did undergo a lumbar puncture in the Emergency Room, he had 38 white blood cells and an elevated protein at 70. His CSF culture is so far negative. He also was having some intermittent chest pain and a CAT scan of the chest was done. This was unremarkable for PE or pneumonia. He was started empirically on Rocephin. His sed rate was mildly elevated at 16; however, he did not have fever or leukocytosis. On my examination today, he states he is feeling significantly better. His headache is resolved; however, he did have pain medication overnight. He denies any arthralgias or myalgias. He denies any recent tick bites or rashes; however, he was treated for Lyme disease in January of 2016. He did have a course of doxycycline and responded well to this. He states that these symptoms are similar; however, much worse than they were in January. He is tolerating Rocephin well. He denies any chest pain, cough or shortness of breath on my examination. He denies any fevers or chills. His headache is gone. He denies any neck stiffness. He has no visual changes. He denies any rashes. He denies any nausea, vomiting, diarrhea or abdominal pain. He has no sick contacts. All remaining review of systems are reviewed and are negative except for as noted above. PAST MEDICAL HISTORY: Significant for hypertension, cholelithiasis, GERD, vitamin D deficiency and vitamin B12 deficiency. PAST SURGICAL HISTORY: Significant for left knee surgery, right rotator cuff repair, partial colectomy and right inguinal hernia repair. FAMILY HISTORY: Noncontributory. SOCIAL HISTORY: Significant for history of tobacco use, but he recently quit. He drinks occasionally. He denies any drug use. 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 He is and lives with his family. He is an avid candis and is outdoors frequently. ALLERGIES: He has no known drug allergies. CURRENT MEDICATIONS: Include Rocephin, aspirin, Coreg, vitamin D, vitamin B12, hydrochlorothiazide, lisinopril, Protonix, Tylenol, Maalox, Zofran, Ambien, and Toradol. PHYSICAL EXAMINATION: VITAL SIGNS: He is afebrile since admission, pulse 58, respiratory rate 19, blood pressure is 111/75 and oxygen saturation is 97% on room air. GENERAL: He is awake, alert and oriented x3. He is in no acute distress. HEENT: Mucous membranes are moist. Extraocular muscles are intact. There is no nuchal rigidity. HEART: Regular. LUNGS: Clear bilaterally. ABDOMEN: Soft and nondistended. EXTREMITIES: There is no lower extremity edema. SKIN: Without rash. LABORATORY STUDIES: CBC today reveals a white blood cell count of 7.2, hemoglobin 14.7, platelets are 203. Sed rate was mildly elevated at 16. CRP is mildly elevated at 0.5. Chemistry panel today reveals a sodium of 139, potassium 4.0, chloride 105, bicarbonate 25, BUN 31, creatinine 1.0, and glucose is 96. Urinalysis was negative. CSF studies showed 38 white blood cells and a protein of 70. Lyme titer is pending. CSF culture is negative to date. Previous Lyme titer done as an outpatient on the is pending as well. IMAGING DATA: CT of the chest was unremarkable. CT of the head was unremarkable. ASSESSMENT AND PLAN: 1. Meningitis either secondary to Lyme or viral etiology. Pending the results of his lab studies, he should remain on Rocephin. He has had significant improvement since admission to the hospital. We will follow along with you. Thank you for this consultation.
[2016-08-15 16:25] VITALS: BP 132/89; PULSE 79; TEMP 36.9; O2SAT 97
[2016-08-15] MEDS: ACETAMINOPHEN 325 MG TAB PO PRN (17:10)
[2016-08-15] MEDS: CEFTRIAXONE SOD INJ 2,000 MG in DEXTROSE 5% 50ML 50 ML IV SCH (17:52)
[2016-08-15 23:50] VITALS: BP 150/82; PULSE 66; TEMP 36.6; O2SAT 96
[2016-08-16 07:41] VITALS: BP 107/72; PULSE 59; TEMP 36.4; O2SAT 96
[2016-08-16] MEDS: CYANOCOBALAMIN 500 MCG TAB (VIT B-12) PO SCH (08:26)
[2016-08-16] MEDS: ASPIRIN 81 MG ECTAB PO SCH (08:26)
[2016-08-16] MEDS: CARVEDILOL 3.125 MG TAB PO SCH (08:27)
[2016-08-16] MEDS: CHOLECALCIFEROL 1000 INTER.UNIT TAB PO SCH (08:27)
[2016-08-16] MEDS: HYDROCHLOROTHIAZIDE 25 MG TAB PO SCH (08:27)
[2016-08-16] MEDS: PANTOprazole SOD 40 MG TAB PO SCH (08:27)
[2016-08-16] MEDS: LISINOPRIL 10 MG TAB PO SCH (08:27)
[2016-08-16] MEDS: KETOROLAC TROMETHAMINE 30 MG/ML VIAL IV PRN ×2 (09:32→15:56)
[2016-08-16 09:33] VITALS: BP 125/74; PULSE 78; TEMP 36.7; O2SAT 96
--- NOTE | 2016-08-16 10:55 | Progress Note ---
Subjective Date of Service: Aug 16, 2016. Subjective Pt evaluation today including: conversation w/ patient, conversation w/ family , physical exam, chart review, lab review pt states he is not feeling well this morning, woke up and felt fine but then had return of THOMAS and felt dizzy, was given toradol with relief. No fevers, no visual changes, no neck stiffness. remains on ctx, tolerating well. lyme csf studies pending. Oupt lyme titer was equiv, WB pending. No labs today. All remaining ros reviewed and are negative. Problem List Medical Problems: (1) Atypical chest pain Status: Acute (2) Headache behind the eyes Status: Acute Objective Vital Signs Date Time Temp Pulse Resp B/P Pulse Ox O2 Delivery O2 Flow Rate FiO2 08/16/16 10:11 Room Air 08/16/16 09:33 36.7 78 20 125/74 96 Room Air 08/16/16 07:41 36.4 59 16 107/72 96 Room Air 08/16/16 00:00 Room Air 08/15/16 23:50 36.6 66 18 150/82 96 Room Air 08/15/16 20:00 Room Air 08/15/16 16:25 36.9 79 18 132/89 97 Room Air 08/15/16 15:25 Room Air Physical Exam General Appearance: WD/WN, no apparent distress Eyes: normal inspection, EOMI ENT: + pertinent finding (no nuchal rigidity) Neck: supple Respiratory/Chest: lungs clear, normal breath sounds, no respiratory distress Cardiovascular: regular rate, rhythm, no edema Abdomen: non tender, soft Extremities: non-tender, normal inspection, no pedal edema Neurologic/Psychiatric: alert, oriented x 3 Skin: normal color Laboratory Results Item Value Date Time Gram Stain - Final Resulted 08/14/16 1650 Cerebral Spinal Fluid Assessment and Plan (1) Meningitis Assessment & Plan: will continue ctx for now, follow cultures and lyme studies
--- NOTE | 2016-08-16 11:38 | Progress Note ---
Subjective Date of Service: Aug 16, 2016. Subjective Pt evaluation today including: conversation w/ patient, physical exam, chart review, lab review, review of studies, review of inpatient medication list Denies any further joint pain but states headache comes and goes but not as bad as before Denies any visual changes or neck pain No fevers or chills noted Problem List Medical Problems: (1) Atypical chest pain Status: Acute (2) Headache behind the eyes Status: Acute Review of Systems Constitutional: No chills, No fever Eyes: No eye pain, No worsening of vision Respiratory: No cough, No sputum Cardiac: No chest pain Abdomen: No diarrhea, No nausea, No pain, No vomiting Musculoskeletal: No joint pain, No muscle pain Male : No dysuria, No urinary frequency Psychiatric: No anhedonism, No anxiety Objective Vital Signs Date Time Temp Pulse Resp B/P Pulse Ox O2 Delivery O2 Flow Rate FiO2 08/16/16 10:11 Room Air 08/16/16 09:33 36.7 78 20 125/74 96 Room Air 08/16/16 07:41 36.4 59 16 107/72 96 Room Air 08/16/16 00:00 Room Air 08/15/16 23:50 36.6 66 18 150/82 96 Room Air 08/15/16 20:00 Room Air 08/15/16 16:25 36.9 79 18 132/89 97 Room Air 08/15/16 15:25 Room Air Physical Exam General Appearance: WD/WN, no apparent distress Neck: supple, no adenopathy Respiratory/Chest: lungs clear, normal breath sounds Cardiovascular: no edema, no gallop Abdomen: non tender, soft Neurologic/Psychiatric: alert, oriented x 3 Assessment and Plan Patient is a 51-year-old male with a history of hypertension, Lyme disease, GERD , asymptomatic cholelithiasis, vitamin D deficiency, and vitamin B 12 deficiency , who presents to the ER with severe headache, diffuse arthralgias, and left sided chest pain with associated shortness of breath. The day after the symptoms started, he was seen by his PCP and had blood work which showed an equivocal Lyme IgM titer, and the Western blot is pending. When his symptoms persisted, he called his PCPs office 2 days later and he was called in doxycycline which she started the day prior to admission. When the headache persisted today, it prompted him to come to the emergency room. In the ER, he had a fairly normal CBC and CMP, was given IV fluids and Toradol which really helped his headache. He had a CT angiogram of the chest which was negative for PE or any other pulmonary or thoracic process. His troponin was negative, and his ECG did not show any acute signs of ischemia. Lumbar puncture was traumatic. On subsequent tubes of CSF, his white blood cell count was still somewhat bloody and had mildly elevated protein and 10 white blood cells. 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 -Continue Toradol when necessary headache, reports THOMAS mild -Follow up on CSF studies including Lyme PCR, CSF cx NTD -Follow up on Lyme disease Western blot performed as an outpatient several days ago -Consult infectious disease, appreciate recs Hypertension, chest pain with associated shortness of breath-his blood pressure is stable. ECG with possible new septal infarct since 2011, had normal stress echocardiogram in November 2011 and has been asymptomatic since then. Likely not a significant finding. His ongoing chest pain is constant in nature for several days and his initial troponin was negative, making this not likely to be cardiac in nature. It is likely musculoskeletal related to his probable Lyme disease. -Continue carvedilol, hydrochlorothiazide, and lisinopril as well as baby aspirin GERD-stable -Continue PPI Vitamin D deficiency, vitamin B12 deficiency-stable -Continue by mouth B12 and vitamin D DVT prophylaxis-SCDs FULL CODE
[2016-08-16 16:31] VITALS: BP 124/85; PULSE 70; TEMP 36.7; O2SAT 95
[2016-08-16 16:57] VITALS: O2SAT 98
[2016-08-16] MEDS: CEFTRIAXONE SOD INJ 2,000 MG in DEXTROSE 5% 50ML 50 ML IV SCH (17:46)
[2016-08-17] VITALS: BP 134/87; PULSE 68; TEMP 36.4; O2SAT 94
[2016-08-17] MEDS: KETOROLAC TROMETHAMINE 30 MG/ML VIAL IV PRN ×2 (01:46→13:19)
[2016-08-17 07:26] VITALS: BP 94/59; PULSE 60; TEMP 36.5; O2SAT 96
[2016-08-17] MEDS: CHOLECALCIFEROL 1000 INTER.UNIT TAB PO SCH (08:11)
[2016-08-17] MEDS: PANTOprazole SOD 40 MG TAB PO SCH (08:11)
[2016-08-17] MEDS: CYANOCOBALAMIN 500 MCG TAB (VIT B-12) PO SCH (08:11)
[2016-08-17] MEDS: HYDROCHLOROTHIAZIDE 25 MG TAB PO SCH (08:12)
[2016-08-17] MEDS: ASPIRIN 81 MG ECTAB PO SCH (08:12)
[2016-08-17] MEDS: CARVEDILOL 3.125 MG TAB PO SCH (08:12)
[2016-08-17] MEDS: LISINOPRIL 10 MG TAB PO SCH (08:12)
[2016-08-17 08:15] VITALS: BP 118/83; PULSE 60
--- NOTE | 2016-08-17 09:44 | Progress Note ---
Subjective Date of Service: Aug 17, 2016. Subjective pt remains afebrile. tolerating ctx. CSF culture remains negative. lyme pcr is pending, outpt lyme Western blot from 08/10 is negative, 1/3 IgM bands, 1/10 IgG bands. No am labs to review. no overnight events. Problem List Medical Problems: (1) Atypical chest pain Status: Acute (2) Headache behind the eyes Status: Acute Objective Vital Signs Date Time Temp Pulse Resp B/P Pulse Ox O2 Delivery O2 Flow Rate FiO2 08/17/16 09:41 Room Air 08/17/16 08:15 60 118/83 08/17/16 07:26 36.5 60 16 94/59 96 Room Air 08/17/16 01:40 Room Air 08/17/16 00:00 36.4 68 16 134/87 94 Room Air 08/16/16 16:57 98 Room Air 08/16/16 16:31 36.7 70 16 124/85 95 Room Air 08/16/16 10:11 Room Air Laboratory Results Item Value Date Time Gram Stain - Final Complete 08/14/16 1650 Cerebral Spinal Fluid Assessment and Plan (1) Meningitis Assessment & Plan: suspect viral etiology, lyme pcr pending. western blot negative. csf culture negative.
[2016-08-17 15:54] VITALS: BP 107/71; PULSE 56; TEMP 36.6; O2SAT 95
[2016-08-17 16:00] VITALS: O2SAT 98
--- NOTE | 2016-08-17 16:05 | Progress Note ---
Subjective Date of Service: Aug 17, 2016. Subjective Pt evaluation today including: conversation w/ patient, physical exam, chart review, lab review, review of studies, review of inpatient medication list No THOMAS today Feeling better No fevers or chills or neck pain Resting comfortably in bed Problem List Medical Problems: (1) Atypical chest pain Status: Acute (2) Headache behind the eyes Status: Acute Review of Systems Constitutional: No chills, No fever Respiratory: No cough, No shortness of breath, No sputum, No wheezing Cardiac: No chest pain Abdomen: No constipation, No diarrhea, No nausea, No pain, No vomiting Musculoskeletal: No joint pain, No muscle pain Male : No dysuria, No urinary frequency Objective Vital Signs Date Time Temp Pulse Resp B/P Pulse Ox O2 Delivery O2 Flow Rate FiO2 08/17/16 15:54 36.6 56 16 107/71 95 Room Air 08/17/16 09:41 Room Air 08/17/16 08:15 60 118/83 08/17/16 07:26 36.5 60 16 94/59 96 Room Air 08/17/16 01:40 Room Air 08/17/16 00:00 36.4 68 16 134/87 94 Room Air 08/16/16 16:57 98 Room Air 08/16/16 16:31 36.7 70 16 124/85 95 Room Air Physical Exam General Appearance: WD/WN, no apparent distress Neck: supple, no adenopathy Respiratory/Chest: lungs clear, normal breath sounds Cardiovascular: no edema, no gallop Abdomen: non tender, soft Neurologic/Psychiatric: alert, normal mood/affect Assessment and Plan Patient is a 51-year-old male with a history of hypertension, Lyme disease, GERD , asymptomatic cholelithiasis, vitamin D deficiency, and vitamin B 12 deficiency , who presents to the ER with severe headache, diffuse arthralgias, and left sided chest pain with associated shortness of breath. The day after the symptoms started, he was seen by his PCP and had blood work which showed an equivocal Lyme IgM titer, and the Western blot is pending. When his symptoms persisted, he called his PCPs office 2 days later and he was called in doxycycline which she started the day prior to admission. When the headache persisted today, it prompted him to come to the emergency room. In the ER, he had a fairly normal CBC and CMP, was given IV fluids and Toradol which really helped his headache. He had a CT angiogram of the chest which was negative for PE or any other pulmonary or thoracic process. His troponin was negative, and his ECG did not show any acute signs of ischemia. Lumbar puncture was traumatic. On subsequent tubes of CSF, his white blood cell count was still somewhat bloody and had mildly elevated protein and 10 white blood cells. 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 -Continue Toradol when necessary headache, reports THOMAS mild -Follow up on CSF studies including Lyme PCR, CSF cx NTD -Follow up on Lyme disease Western blot performed as an outpatient several days ago -Consult infectious disease, appreciate recs Hypertension, chest pain with associated shortness of breath-his blood pressure is stable. ECG with possible new septal infarct since 2011, had normal stress echocardiogram in November 2011 and has been asymptomatic since then. Likely not a significant finding. His ongoing chest pain is constant in nature for several days and his initial troponin was negative, making this not likely to be cardiac in nature. It is likely musculoskeletal related to his probable Lyme disease. -Continue carvedilol, hydrochlorothiazide, and lisinopril as well as baby aspirin GERD-stable -Continue PPI Vitamin D deficiency, vitamin B12 deficiency-stable -Continue by mouth B12 and vitamin D DVT prophylaxis-SCDs FULL CODE
[2016-08-17] MEDS: CEFTRIAXONE SOD INJ 2,000 MG in DEXTROSE 5% 50ML 50 ML IV SCH (18:31)
[2016-08-17 23:58] VITALS: BP 118/80; PULSE 74; TEMP 36.4; O2SAT 95
[2016-08-18 08:02] VITALS: BP 101/67; PULSE 62; TEMP 36.3; O2SAT 95
[2016-08-18] MEDS: ASPIRIN 81 MG ECTAB PO SCH (09:06)
[2016-08-18] MEDS: CARVEDILOL 3.125 MG TAB PO SCH (09:06)
[2016-08-18] MEDS: HYDROCHLOROTHIAZIDE 25 MG TAB PO SCH (09:07)
[2016-08-18] MEDS: PANTOprazole SOD 40 MG TAB PO SCH (09:08)
[2016-08-18] MEDS: CYANOCOBALAMIN 500 MCG TAB (VIT B-12) PO SCH (09:08)
[2016-08-18] MEDS: LISINOPRIL 10 MG TAB PO SCH (09:09)
[2016-08-18] MEDS: CHOLECALCIFEROL 1000 INTER.UNIT TAB PO SCH (09:09)
--- NOTE | 2016-08-18 10:40 | Progress Note ---
Subjective Date of Service: Aug 18, 2016. Subjective cultures remain negative, afebrile. Lyme titer negative as outpt. remains on ctx. no new labs. csf lyme pending. 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 If pt ready for d/c, could d/c on doxy 100mg po bid pending lyme csf, if negative can stop.
[2016-08-18] MEDS ORDERED: FRCT/ PO (12:04)
--- NOTE | 2016-08-18 12:07 | Discharge Instructions ---
Discharge Instructions Date of Service Aug 18, 2016. Admission Reason for Admission: Intractable Headache Discharge Discharge Diagnosis / Problem: Intractable headache Discharge Goals Goal(s): Decrease discomfort, Improve function, Increase independence, Improve disease control, Diagnostic testing, Therapeutic intervention Activity Recommendations Activity Limitations: resume your previous activity Exercise/Sports Limitations: none Shower/Bathe: tomorrow . Instructions / Follow-Up Instructions / Follow-Up Patient to be discharged home Prescribed fioricet that can be taken every 4 hrs only as needed for headache Please continue to take doxycycline twice a day If worsening headaches, visual changes, fevers, chills, neck pain please come to ER Follow up with Lyly Lo in 1-2 weeks Current Hospital Diet Patient's current hospital diet: AHA Diet (Heart Healthy) Discharge Diet Recommended Diet: AHA Diet (Heart Healthy) Pending Studies Studies pending at discharge: no Laboratory Results Lipid Panel Test 08/14/16 09:53 Range/Units Triglycerides Level 220 H 0-150 mg/dl Cholesterol Level 186 0-200 mg/dl HDL Cholesterol 53 mg/dl Cholesterol/HDL Ratio 3.5 LDL Cholesterol, Calculated 89 mg/dl Medical Emergencies . Who to Call and When: Medical Emergencies: If at any time you feel your situation is an emergency, please call 911 immediately. . Non-Emergent Contact Non-Emergency issues call your: Primary Care Provider Call Non-Emergent contact if: you have a fever, your pain is worsening . . "Provider Documentation" section prepared by Hussein Gates. VTE Core Measure Inpt VTE Proph given/why not?: Treatment not indicated
[2016-08-18 12:46] VITALS: BP 101/67; PULSE 62; TEMP 36.3; O2SAT 95
--- NOTE | 2016-08-18 14:09 | Discharge Summary ---
Discharge Summary Date of Service Aug 18, 2016. Discharge Summary Admission Date: Aug 14, 2016 at 18:59 Discharge Date: Aug 18, 2016 Discharge Disposition: Home Principal Diagnosis: Intractable headache Immunizations: Have You Had Influenza Vaccine: Yes History of Tetanus Vaccine?: Yes History of Pneumococcal: No History of Hepatitis B Vaccine: No Consultations: Infectious disease Medication Reconciliation New Medications: Acetamin/Butalbital/Caffeine (Fioricet) 1 Ea Tab 1 TAB PO Q4, #30 TAB Continued Medications: Aspirin (Aspirin Ec) 81 Mg Tab 81 MG PO DAILY Carvedilol (Coreg) 3.125 Mg Tab 3.125 MG PO DAILY Cholecalciferol (Vitamin D3) 1,000 Unit Tab 1 TAB PO DAILY Cyanocobalamin (Vitamin B-12) 1,000 Mcg Tab 1000 MCG PO DAILY Doxycycline Monohydrate (Monodox) 100 Mg Cap 100 MG PO BID, CAP lymes disease tx Hydrochlorothiazide (Hctz) 25 Mg Tab 25 MG PO DAILY Lisinopril (Zestril) 10 Mg Tab 10 MG PO DAILY, 0 Refills Omeprazole (Prilosec) 20 Mg Capcr 20 MG PO DAILY Discharge Exam Review of Systems: Constitutional: No chills, No fever Respiratory: No cough, No sputum Cardiovascular: No chest pain, No orthopnea Abdomen: No diarrhea, No nausea, No pain, No vomiting Musculoskeletal: No joint pain, No muscle pain Genitourinary - Male: No dysuria, No hematuria Neurologic: No numbness/tingling, No paralysis, No weakness Psychiatric: No anxiety, No depression symptoms Endocrine: No excessive thirst, No fatigue Integumentary: No itch, No rash Physical Exam: General Appearance: WD/WN, no apparent distress Eyes: normal inspection, EOMI Neck: supple, no adenopathy Respiratory/Chest: chest non-tender, lungs clear Cardiovascular: no edema, no gallop Abdomen / GI: non tender, soft Neurologic/Psychiatric: alert, oriented x 3 Hospital Course Patient is a 51-year-old male with a history of hypertension, Lyme disease, GERD , asymptomatic cholelithiasis, vitamin D deficiency, and vitamin B 12 deficiency , who presents to the ER with severe headache, diffuse arthralgias, and left sided chest pain with associated shortness of breath. The day after the symptoms started, he was seen by his PCP and had blood work which showed an equivocal Lyme IgM titer, and the Western blot is pending. When his symptoms persisted, he called his PCPs office 2 days later and he was called in doxycycline which she started the day prior to admission. When the headache persisted today, it prompted him to come to the emergency room. In the ER, he had a fairly normal CBC and CMP, was given IV fluids and Toradol which really helped his headache. He had a CT angiogram of the chest which was negative for PE or any other pulmonary or thoracic process. His troponin was negative, and his ECG did not show any acute signs of ischemia. Lumbar puncture was traumatic. On subsequent tubes of CSF, his white blood cell count was still somewhat bloody and had mildly elevated protein and 10 white blood cells. 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 -Follow up on CSF studies including Lyme PCR, CSF cx NTD -Follow up on Lyme disease Western blot performed as an outpatient was neg -Consult infectious disease, appreciate recs, likely viral etiology, can continue doxycycline 100 mg PO BID upon discharge Hypertension, chest pain with associated shortness of breath-his blood pressure is stable. ECG with possible new septal infarct since 2011, had normal stress echocardiogram in November 2011 and has been asymptomatic since then. Likely not a significant finding. His ongoing chest pain is constant in nature for several days and his initial troponin was negative, making this not likely to be cardiac in nature. It is likely musculoskeletal related to his probable Lyme disease. -Continue carvedilol, hydrochlorothiazide, and lisinopril as well as baby aspirin GERD-stable -Continue PPI Vitamin D deficiency, vitamin B12 deficiency-stable -Continue by mouth B12 and vitamin D DVT prophylaxis-SCDs FULL CODE Total Time Spent: Greater than 30 minutes This includes examination of the patient, discharge planning, medication reconciliation, and communication with other providers. Discharge Instructions Please refer to the electronic Patient Visit Report (Discharge Instructions) for additional information. Additional Copies To Lyly Lo C.R.N.P
[2016-08-23 10:07] LABS: LYME DNA PCR CSF OR SYNOVIAL Not detected (Not Detected); LYME DNA SOURCE CSF; LYME IGG CSF NO BANDS DETECTED; LYME IGM CSF NO BANDS DETECTED
== END 2016-08-18 13:48 | disposition home or self-care (01) | DRG 75 ==
LOC: ENRESERVDT → ENRESERVTM → C.EDB 13:41 → C.MS4W 18:59
PROVIDERS: ADMIT Family Medicine; ATTEND Hospitalist
PROC: 009U3ZX Drainage of Spinal Canal, Percutaneous Approach, Diagnostic (ICD-10-PCS; principal; 2016-08-16)
DX: A87.9 Viral meningitis, unspecified (principal); A69.20 Lyme disease, unspecified; K21.9 Gastro-esophageal reflux disease without esophagitis; R06.02 Shortness of breath; E53.8 Deficiency of other specified B group vitamins; E55.9 Vitamin D deficiency, unspecified; R07.9 Chest pain, unspecified; M25.50 Pain in unspecified joint; R51 Headache; I10 Essential (primary) hypertension; Z87.891 Personal history of nicotine dependence; Z79.82 Long term (current) use of aspirin; Z79.899 Other long term (current) drug therapy; Z79.1 Long term (current) use of non-steroidal anti-inflammatories (NSAID)

== ENCOUNTER → 2016-08-14 | Outpatient (CLI) | payer OTHER ==
[2016-08-14 13:43] LABS: ALT/SGPT 29 U/L (12-78); BLOOD UREA NITROGEN 28 mg/dl (7-18); BUN/CREATININE RATIO 25.3 (10-20); CALCIUM 9.1 mg/dl (8.5-10.1); CARBON DIOXIDE 32 mmol/L (21-32); CHLORIDE 100 mmol/L (98-107); GLUCOSE 100 mg/dl (70-99); POTASSIUM 4.2 mmol/L (3.5-5.1); SODIUM 136 mmol/L (136-145)
[2016-08-14 13:46] LABS: ALKALINE PHOSPHATASE 82 U/L (45-117); AST/SGOT 12 U/L (15-37); CHOLESTEROL 186 mg/dl (0-200); CHOLESTEROL/HDL RATIO 3.5; HDL CHOLESTEROL 53 mg/dl; LDL CHOLESTEROL CALCULATED 89 mg/dl; TRIGLYCERIDES 220 mg/dl (0-150); VERY LOW DENSITY LIPOPROT CALC 44 mg/dl
== END | disposition home or self-care (01) ==
LOC: C.LABPVFM 09:41
PROVIDERS: ATTEND Nurse Practitioner Family
DX: I10 Essential (primary) hypertension (principal); R07.9 Chest pain, unspecified

== ENCOUNTER → 2017-02-25 | Outpatient (CLI) | payer OTHER ==
[~2017-02-25] MED LIST changes: -ASPEC81 PO; +ASPI81TA28 PO; +CARV3.122 PO; +CHOL1000 PO; +CYAN10005 PO; +DOXY100C76 PO; +FRCT/ PO; +HYDR25TA4 PO; +PRLSR20 PO
[2017-02-25 13:16] LABS: BLOOD UREA NITROGEN 26 mg/dl (7-18); CALCIUM 9.5 mg/dl (8.5-10.1); CARBON DIOXIDE 29 mmol/L (21-32); CHLORIDE 103 mmol/L (98-107); GLUCOSE 77 mg/dl (70-99); POTASSIUM 4.4 mmol/L (3.5-5.1); SODIUM 139 mmol/L (136-145)
== END | disposition home or self-care (01) ==
LOC: C.LABPVFM 09:02
PROVIDERS: ATTEND Nurse Practitioner
DX: I10 Essential (primary) hypertension (principal)

== ENCOUNTER 2017-07-04 10:53 | Emergency (ER) | payer OTHER ==
[~2017-07-04] VITALS: Ht 170.2 cm; Wt 97.4 kg
[2017-07-04 11:00] VITALS: Ht 170.2 cm; Wt 97.4 kg
[2017-07-04] MEDS ORDERED: MULT-506 PO (11:50)
[2017-07-04 11:56] LABS: BASO % 0.4 %; BASO ABS # 0.03 K/uL (0-0.2); EOS % 2.6 %; EOS ABS # 0.18 K/uL (0-0.5); HEMOGLOBIN 16.5 g/dL (14.0-18.0); IG# 0.01 K/uL (0.00-0.02); LYMPH % 34.3 %; LYMPH ABS # 2.39 K/uL (1.2-3.4); MEAN CELL VOLUME 82.5 fL (80-100); MEAN CORPUSCULAR HEMOGLOBIN 28.9 pg (25-34); MEAN CORPUSCULAR HGB CONC 35.1 g/dl (32-36); MEAN PLATELET VOLUME 9.2 fL (7.4-10.4); MONO % 4.6 %; MONO ABS # 0.32 K/uL (0.11-0.59); NEUT ABS # 4.04 K/uL (1.4-6.5); PLATELET COUNT 228 K/uL (130-400); RED CELL DISTRIBUTION WIDTH CV 13.6 % (11.5-14.5); RED CELL DISTRIBUTION WIDTH SD 40.9 fL (36.4-46.3); WHITE BLOOD COUNT 6.97 K/uL (4.8-10.8)
--- NOTE | 2017-07-04 12:03 | DIAGNOSTIC IMAGING REPORT ---
CT SCAN OF THE BRAIN WITHOUT IV CONTRAST CLINICAL HISTORY: Lightheadedness. COMPARISON STUDY: CT of the brain dated 08/14/2016. TECHNIQUE: Unenhanced axial CT scan of the brain is performed from the vertex to the skull base. A dose lowering technique was utilized adhering to the principles of ALARA. CT DOSE: 638.56 mGycm FINDINGS: Brain parenchyma: The brain parenchyma is normal in appearance. There is no hemorrhage, mass effect, or evidence of acute territorial ischemia by CT criteria. Christensen-white matter is preserved. No extra-axial fluid collection is seen. Ventricles, sulci, cisterns: Normal in configuration. Intracranial vasculature: The visualized intracranial vasculature at the skull base is normal in appearance. Calvarium: Unremarkable. Sinuses and mastoids: The visualized paranasal sinuses are clear. There is trace right mastoid effusion. The left mastoid air cells are well pneumatized. Orbits: The bony orbits are grossly intact. IMPRESSION: There is no hemorrhage, mass effect, or evidence of acute territorial ischemia by CT criteria. Electronically signed by: Jose Low M.D. 07/04/2017 12:02 PM Dictated Date/Time: 07/04/2017 12:00 PM
[2017-07-04 12:17] LABS: ALBUMIN 4.4 gm/dl (3.4-5.0); CALCIUM 9.3 mg/dl (8.5-10.1); CREATININE 1.01 mg/dl (0.60-1.40); POTASSIUM 4.1 mmol/L (3.5-5.1)
[2017-07-04 12:18] VITALS: TEMP 36.9
[2017-07-04 12:19] LABS: TOTAL PROTEIN 8.6 gm/dl (6.4-8.2)
[2017-07-04 13:45] VITALS: BP 114/81; PULSE 72; O2SAT 97
--- NOTE | 2017-07-04 15:18 | EMERGENCY ROOM VISIT NOTE ---
History Report prepared by Ana: Kirill De Jesus Under the Supervision of: Dr. Maxwell Thomas D.O. First contact with patient: 11:11 Chief Complaint: NEURO SYMPTOMS Stated Complaint: DISORIENTED,LIGHTHEADED History of Present Illness The patient is a 52 year old male who presents to the Emergency Room with complaints of lightheadedness that began about 3 hours ago. 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 Yesterday, the patient started to have a headache, but he took some Ibuprofen which resolved it. This morning, he woke up at his baseline and went to work. However, he then began to feel moderately lightheaded that is not exacerbated or relieved by anything. He had a similar episode of this about 2 weeks ago, but at that time, he could not remember a couple hours out of his day. He was not evaluated at that time. That was not the case with today as he remembers everything. Pt denies headache, change in vision, fevers, chest pain, shortness of breath, abdominal pain, back pain, nausea, vomiting, diarrhea, pain with urination, melena, weakness, or numbness. Upon review of his chart he was treated for meningitis August 2016. All his cultures grew out negative for Lyme Source of History: patient Onset: 3 hours ago Position: other (Global) Symptom Intensity: moderate Quality: other (Lightheadedness) Timing: constant Associated Symptoms: No fevers, No headache, No chest pain, No SOB, No nausea, No vomiting, No abdominal pain, No back pain, No melena, No diarrhea, No urinary symptoms, No weakness, No numbness Review of Systems See HPI for pertinent positives & negatives. A total of 10 systems reviewed and were otherwise negative. Past Medical & Surgical Medical Problems: (1) Benign essential hypertension (2) Intractable headache (3) Meningitis Family History Hypertension Social History Smoking Status: Former Smoker Alcohol Use: occasionally Drug Use: none Marital Status: Housing Status: lives with family Occupation Status: employed Current/Historical Medications Scheduled Aspirin (Aspirin Ec), 81 MG PO DAILY Carvedilol (Coreg), 3.125 MG PO DAILY Cholecalciferol (Vitamin D3), 1 TAB PO DAILY Cyanocobalamin (Vitamin B-12), 1,000 MCG PO DAILY Hydrochlorothiazide (Hctz), 25 MG PO DAILY Lisinopril (Zestril), 10 MG PO DAILY Multivitamin (Multivitamin), 1 TAB PO DAILY Omeprazole (Prilosec), 20 MG PO DAILY Allergies Coded Allergies: No Known Allergies (Verified , 07/04/17) Physical Exam Vital Signs Date Time Temp Pulse Resp B/P (MAP) Pulse Ox O2 Delivery O2 Flow Rate FiO2 07/04/17 13:45 72 18 114/81 97 Room Air 07/04/17 12:21 73 07/04/17 12:18 36.9 75 18 116/79 96 Room Air 07/04/17 11:00 36.6 76 20 149/111 99 Room Air Physical Exam GENERAL: Sitting up in bed, alert, well appearing, well nourished, no distress, non-toxic EYE EXAM: normal conjunctiva. PERRL and EOM's intact. OROPHARYNX: no exudate, no erythema, lips, buccal mucosa, and tongue normal and mucous membranes are moist NECK: supple, no nuchal rigidity, no adenopathy, non-tender LUNGS: Clear to auscultation. Normal chest wall mechanics HEART: no murmurs, S1 normal and S2 normal ABDOMEN: abdomen soft, non-tender, normo-active bowel sounds, no masses, no rebound or guarding. BACK: Back is symmetrical on inspection and there is no deformity, no midline tenderness, no CVA tenderness. SKIN: no rashes and no bruising UPPER EXTREMITIES: upper extremities are grossly normal. LOWER EXTREMITIES: No pitting edema. NEURO EXAM: Normal sensorium, cranial nerves II-XII intact, normal speech, no weakness of arms, no weakness of legs. No drift. Finger to nose intact. Gross sensation intact. Medical Decision & Procedures ER Provider Diagnostic Interpretation: Radiology results as stated below per my review and the radiologist's interpretation: CT SCAN OF THE BRAIN WITHOUT IV CONTRAST CLINICAL HISTORY: Lightheadedness. COMPARISON STUDY: CT of the brain dated 08/14/2016. TECHNIQUE: Unenhanced axial CT scan of the brain is performed from the vertex to the skull base. A dose lowering technique was utilized adhering to the principles of ALARA. CT DOSE: 638.56 mGycm FINDINGS: Brain parenchyma: The brain parenchyma is normal in appearance. There is no hemorrhage, mass effect, or evidence of acute territorial ischemia by CT criteria. Christensen-white matter is preserved. No extra-axial fluid collection is seen. Ventricles, sulci, cisterns: Normal in configuration. Intracranial vasculature: The visualized intracranial vasculature at the skull base is normal in appearance. Calvarium: Unremarkable. Sinuses and mastoids: The visualized paranasal sinuses are clear. There is trace right mastoid effusion. The left mastoid air cells are well pneumatized. Orbits: The bony orbits are grossly intact. IMPRESSION: There is no hemorrhage, mass effect, or evidence of acute territorial ischemia by CT criteria. Electronically signed by: Jose Low M.D. 07/04/2017 12:02 PM Dictated Date/Time: 07/04/2017 12:00 PM Laboratory Results 07/04/17 11:27 Red Blood Count 5.70, Mean Corpuscular Volume 82.5, Mean Corpuscular Hemoglobin 28.9, Mean Corpuscular Hemoglobin Concent 35.1, Mean Platelet Volume 9.2, Neutrophils (%) (Auto) 58.0, Lymphocytes (%) (Auto) 34.3, Monocytes (%) (Auto) 4.6, Eosinophils (%) (Auto) 2.6, Basophils (%) (Auto) 0.4, Neutrophils # (Auto) 4.04, Lymphocytes # (Auto) 2.39, Monocytes # (Auto) 0.32, Eosinophils # (Auto) 0.18, Basophils # (Auto) 0.03 07/04/17 11:27 Test 07/04/17 11:27 White Blood Count 6.97 K/uL (4.8-10.8) Red Blood Count 5.70 M/uL (4.7-6.1) Hemoglobin 16.5 g/dL (14.0-18.0) Hematocrit 47.0 % (42-52) Mean Corpuscular Volume 82.5 fL (80-100) Mean Corpuscular Hemoglobin 28.9 pg (25-34) Mean Corpuscular Hemoglobin Concent 35.1 g/dl (32-36) Platelet Count 228 K/uL (130-400) Mean Platelet Volume 9.2 fL (7.4-10.4) Neutrophils (%) (Auto) 58.0 % Lymphocytes (%) (Auto) 34.3 % Monocytes (%) (Auto) 4.6 % Eosinophils (%) (Auto) 2.6 % Basophils (%) (Auto) 0.4 % Neutrophils # (Auto) 4.04 K/uL (1.4-6.5) Lymphocytes # (Auto) 2.39 K/uL (1.2-3.4) Monocytes # (Auto) 0.32 K/uL (0.11-0.59) Eosinophils # (Auto) 0.18 K/uL (0-0.5) Basophils # (Auto) 0.03 K/uL (0-0.2) RDW Standard Deviation 40.9 fL (36.4-46.3) RDW Coefficient of Variation 13.6 % (11.5-14.5) Immature Granulocyte % (Auto) 0.1 % Immature Granulocyte # (Auto) 0.01 K/uL (0.00-0.02) Urine Color YELLOW Urine Appearance CLEAR (CLEAR) Urine pH 7.0 (4.5-7.5) Urine Specific [place] 1.013 (1.000-1.030) Urine Protein NEG (NEG) Urine Glucose (UA) NEG (NEG) Urine Ketones NEG (NEG) Urine Occult Blood NEG (NEG) Urine Nitrite NEG (NEG) Urine Bilirubin NEG (NEG) Urine Urobilinogen NEG (NEG) Urine Leukocyte Esterase NEG (NEG) Urine WBC (Auto) 0 /hpf (0-5) Urine RBC (Auto) 0-4 /hpf (0-4) Urine Hyaline Casts (Auto) 0 /lpf (0-5) Urine Epithelial Cells (Auto) 0-5 /lpf (0-5) Urine Bacteria (Auto) NEG (NEG) Anion Gap 8.0 mmol/L (3-11) Est Creatinine Clear Calc Drug Dose 97.3 ml/min Estimated GFR () 100.1 Estimated GFR (Non- 86.3 BUN/Creatinine Ratio 18.5 (10-20) Calcium Level 9.3 mg/dl (8.5-10.1) Total Bilirubin 1.4 mg/dl (0.2-1) Direct Bilirubin 0.3 mg/dl (0-0.2) Aspartate Amino Transf (AST/SGOT) 13 U/L (15-37) Alanine Aminotransferase (ALT/SGPT) 27 U/L (12-78) Alkaline Phosphatase 83 U/L (45-117) Total Protein 8.6 gm/dl (6.4-8.2) Albumin 4.4 gm/dl (3.4-5.0) Lipase 201 U/L (73-393) Laboratory results per my review. ECG Per My Interpretation Indication: other (Lightheadedness/Dizzy) Rate (beats per minute): 63 Rhythm: sinus rhythm Findings: no ectopy, other (Normal axis) ED Course ED COURSE: Vital signs were reviewed and showed situational hypertension The patients medical record was reviewed The above diagnostic studies were performed and reviewed. ED treatments and interventions as stated above. 1111: The patient was evaluated in room C9. A complete history and physical examination was performed. 1335: Upon reevaluation, the patient is resting. I offered to do an LP procedure which he declined. He will follow up with his PCP. I discussed my findings with the patient and he understands and agrees with the treatment plan. Based on the patients age, coexisting illnesses, exam and lab findings the decision to treat as an outpatient was made. The patient remained stable while under my care. The patient appeared well at the time of discharge. Medical Decision Differential Diagnosis includes but is not limited to headache, tension headache , cluster headache, migraine, subarachnoid hemorrhage, meningitis, mass, central venous thrombus, concussion, trauma and epidural/subdural hemorrhage. Patient is a 52-year-old male that presents to the ER for feeling lightheaded/ not right in the head since 230 this morning. Patient has absolutely no other complaints other than this. No neck pain or headache at this time. He did have mild headache yesterday. No fevers. Patient is completely neurologically intact. 2 weeks ago he did have an episode of confusion. He never followed up in regards to this. Does have a history of Lyme meningitis in August 2016. patient's CSF lyme blot test was negative in his past ER visit in August 2016. Vitals were unremarkable. CBC along with BMP was benign. T bili was slightly elevated at 1.4. LFTs were normal. Lipase normal. UA was negative. No upper respiratory symptoms. CT head was negative. Completely neurologically intact. No cerebellar symptoms. Able to ablate without difficulty. Based on symptoms I did not feel it was beneficial to perform LP as there are no signs of meningitis or encephalitis. Did recommend following up with his PCP as an outpatient. Discussed with Pt concerning signs and symptoms to watch out for. Pt was instructed to follow up with their PCP and discussed with the patient their option to return to the ED at anytime for persistent or worsening symptoms. The appropriate anticipatory guidance and out-patient management, including indications for return to the emergency department, were explained at length to the patient and understood. Medication Reconcilliation Current Medication List: was personally reviewed by me Blood Pressure Screening Patient's blood pressure: Elevated blood pressure Blood pressure disposition: Elevated BP felt to be situational Impression Primary Impression: Lightheaded Scribe Attestation The scribe's documentation has been prepared under my direction and personally reviewed by me in its entirety. I confirm that the note above accurately reflects all work, treatment, procedures, and medical decision making performed by me. Departure Information Dispostion Home / Self-Care Referrals Lyly Lo C.R.N.P (PCP) Forms HOME CARE DOCUMENTATION FORM, IMPORTANT VISIT INFORMATION, WORK / SCHOOL INSTRUCTIONS Patient Instructions ED Dizziness O, My [facility] Additional Instructions Please follow up with your primary care doctor with in the next 24 hours. Any worsening of your symptoms, please return to the ED immediately. This includes any fevers greater than 100.4, worsening pain, chest pain, shortness breath, persistent nausea, vomiting, unable to eat or drink, or any other concerning signs or symptoms from your standpoint. Please take Tylenol Motrin as needed for muscle aches. Please try to stay as hydrated as possible. Please refrain from driving for the next 24 hour/until you feel 100% back to baseline.
== END 2017-07-04 13:53 | disposition home or self-care (01) ==
LOC: C.EDB 10:55 → C.EDC 13:53
DX: R42 Dizziness and giddiness (principal); I10 Essential (primary) hypertension; Z86.61 Personal history of infections of the central nervous system; Z87.891 Personal history of nicotine dependence; Z79.82 Long term (current) use of aspirin; Z82.49 Family history of ischemic heart disease and other diseases of the circulatory system

== ENCOUNTER → 2017-08-16 | Outpatient (CLI) | payer OTHER ==
[~2017-08-16] MED LIST changes: -DOXY100C76 PO; -FRCT/ PO; +MULT-506 PO
== END | disposition home or self-care (01) ==
LOC: C.LABPVFM 15:40
PROVIDERS: ATTEND Nurse Practitioner
DX: R53.83 Other fatigue (principal); R42 Dizziness and giddiness; Z86.19 Personal history of other infectious and parasitic diseases

== ENCOUNTER → 2017-09-28 | Outpatient (CLI) | payer OTHER ==
[~2017-09-28] MED LIST changes: +GADAVIST IV PRN
--- NOTE | 2017-09-28 14:38 | DIAGNOSTIC IMAGING REPORT ---
MRI OF THE BRAIN WITHOUT AND WITH IV CONTRAST CLINICAL HISTORY: VERTIGO HISTORY OF LYME'S DISEASE COMPARISON STUDY: Head CT dated to 918, MRI the brain dated 05/29/2008 TECHNIQUE: MRI of the brain was performed from the vertex to the skull base utilizing various T1 and T2 weighted sequences. Following the IV administration of 9.5 mL of Gadavist contrast, additional enhanced images were obtained. FINDINGS: Sagittal T1, axial diffusion, proton density and T2 weighted axial, coronal FLAIR, and pre and post axial T1-weighted images were acquired. These were supplemented with post gadolinium coronal T1 weighted images. No intra or extra-axial mass lesions are visualized. Axial diffusion-weighted images reveal no evidence of acute or subacute infarction. There is no evidence of ventricular dilatation. Proton density T2-weighted and FLAIR images reveal no significant intraparenchymal signal abnormalities. There are no abnormal flow voids. There is no evidence of pathologic enhancement. A small focus of enhancement within the left frontal region on axial image #16 is felt to be artifactual. There is no corresponding abnormality on the post contrast coronal images, nor on corresponding T2 or FLAIR images. There is a left maxilla sinus air-fluid level. There are foci of increased T2 signal within the right mastoid likely inflammatory. IMPRESSION: 1. Left maxilla sinus air-fluid level. Clinical correlation regards to acute sinusitis is recommended 2. Foci of increased T2 signal within the right mastoid likely inflammatory 3. Otherwise normal MRI of the brain for age Electronically signed by: Alphonso Diaz M.D. 09/28/2017 2:37 PM Dictated Date/Time: 09/28/2017 2:33 PM
== END | disposition home or self-care (01) ==
LOC: C.MRIBC 13:32
PROVIDERS: ATTEND Psychiatry & Neurology Neurology
DX: R94.02 Abnormal brain scan (principal); A69.20 Lyme disease, unspecified; R42 Dizziness and giddiness; R51 Headache

== ENCOUNTER 2019-04-14 09:14 | Observation (INO) ==
--- NOTE | 2019-04-14 09:35 | CT Scan Report ---
CT head/brain wo con CT DOSE: 614.27 mGy.cm HISTORY: Stroke Alert TECHNIQUE: Multiaxial CT images of the head were performed without the use of intravenous contrast. A dose lowering technique was utilized adhering to the principles of ALARA. Comparison: None. Findings: The paranasal sinuses and mastoid air cells are clear. The calvarium and skull base are int act. The ventricles and sulci are within normal limits. There is no mass, hematoma, midline shift, or acute infarct. Impression: No acute intracranial abnormality. The above report was generated using voice recognition software. It may contain grammatical, syntax or spelling errors. Electronically signed by: Grayson Joe M.D. 04/14/2019 9:33 AM
--- NOTE | 2019-04-14 09:43 | XRay Report ---
XR chest 1V portable CLINICAL HISTORY: stroke alert COMPARISON STUDY: 08/14/2016 FINDINGS: The bones soft tissues and hemidiaphragms are normal. The cardiomediastinal silhouette is n ormal. The lungs are clear. The pulmonary vasculature is normal. IMPRESSION: Negative chest. The above report was generated using voice recognition software. It may contain grammatical, syntax or spelling errors. Electronically signed by: Grayson Joe M.D. 04/14/2019 9:42 AM
[2019-04-14 09:48] LABS: Hematocrit (blood only) 46.7 % (42-52); Hemoglobin 16.4 g/dL (14.0-18.0); Mean Corpuscular Hemoglobin 29.4 pg (25-34); Mean Corpuscular Hgb Conc 35.1 g/dL (32-36); Mean Corpuscular Volume 83.7 fL (80-100); Platelet Count 257 K/uL (130-400); RDW Coefficient of Variation 13.3 % (11.5-14.5); RDW Standard Deviation 40.1 fL (36.4-46.3); Red Blood Count 5.58 M/uL (4.7-6.1); White Blood Count 7.81 K/uL (4.8-10.8)
[2019-04-14 09:58] LABS: Partial Thromboplastin Ratio 1.1; Partial Thromboplastin Time 29.1 Seconds (21.0-31.0); Prothrombin Time 10.6 Seconds (9.0-12.0)
[2019-04-14 10:04] LABS: Alanine Aminotransferase 30 U/L (12-78); Albumin Level 4.3 gm/dl (3.4-5.0); Aspartate Aminotransferase 13 U/L (15-37); BUN Creatinine Ratio 22.6 (10-20); Blood Urea Nitrogen 25 mg/dl (7-18); Calcium 9.4 mg/dl (8.5-10.1); Carbon Dioxide 26 mmol/L (21-32); Chloride 104 mmol/L (98-107); Creatinine Clr Calc Pharmacy 86.5 ml/min; Est GFR (Non-African American) 75.9; Glucose 103 mg/dl (70-99); Potassium 3.9 mmol/L (3.5-5.1); Sodium 138 mmol/L (136-145)
[2019-04-14 10:05] LABS: iSTAT Hemoglobin 16.3 g/dl (14.0-18.0); iSTAT Ionized Calcium 1.18 mmol/l (1.12-1.32); iSTAT Potassium 3.9 mEq/L (3.3-5.0)
[2019-04-14 10:08] LABS: Albumin Globulin Ratio 1.1 (0.9-2); Alkaline Phosphatase 86 U/L (45-117); Bilirubin,Total 1.4 mg/dl (0.2-1); Globulin 3.9 gm/dl (2.5-4.0); Total Protein 8.2 gm/dl (6.4-8.2); Troponin I < 0.015 ng/ml (0-0.045)
--- NOTE | 2019-04-14 11:07 | History & Physical Report ---
Date of Service April 14, 2019 Assessment & Plan (1) Altered mental status: Admits to PCU on telemetry for observation. Vital signs every 4 hours. Stroke without TPA protocol started. CTA of the head and neck significant for small caliber right vertebral artery with high-grade stenosis at the distal aspect. MRI brain w/o contrast -pending. Started atorvastatin 40 mg p.o. daily. Started fish oil 1000 units twice daily for elevated triglycerides from the labs before. A1c 5.9 prediabetic-we will start the diabetic diet type II. Lipid panel pending Continue aspirin 81 mg p.o. daily. The case was discussed with Dr. Nixon at neurology [facility] DVT prophylaxis Lovenox 40 mg subcu 2 daily. Neurology consult pending Full code Present on Admission?: Yes (2) Hypertension: Patient had hypertensive urgency when he arrived to the emergency room. His blood pressure continues to be poorly controlled. Wounds titrate up his blood pressure medication 1 at the time. Continue carvedilol 3.125 twice daily, hydrochlorothiazide 25 mg p.o. daily. Lisinopril increased to 20 mg p.o. daily. Started blood pressure should be below 140/90. Present on Admission?: Yes (3) Memory loss: Most likely due to transient ischemic attack related to high-grade stenosis of the right vertebral artery. Medical management as already discussed. Neurology consult Present on Admission?: Yes (4) GERD (gastroesophageal reflux disease): Continue omeprazole 20 mg p.o. daily. 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 The [place] said he is supposed to meet them up at the spots when they meet out for years to person but patient did not know where he was and how he arrived to the hunting location. Patient is disoriented in time. He was able to recall his name and date of . Patient also do not recall that with just positive Thanksgiving. All other stroke symptoms were negative. Patient's sugar level was 101. Patient states that he takes his blood pressure medicine every day and he denies drug or alcohol use. Last time when his friend spoke to him at 630 this morning stated that the patient was fine the conversation occurred over the phone. 2 years ago patient had Lyme meningitis symptoms and was not able to walk he was hospitalized for 10 days at that time patient completed 1 months of therapy for Lyme disease with doxycycline. His at the bedside stated that patient very sick at that time had fever he was not able to walk and had hallucinations. Patient denies fever, chills, chest pain, shortness of breath, abdominal pain, frequency, urgency, hematuria, dysuria. Labs are reviewed: WBC is 7.81, hemoglobin 16.4, hematocrit 46.7, platelets 257, PT 10.6, INR 1, APTT 29.1, sodium 138, potassium 3.9, chloride 104, carbon dioxide 26, anion gap 7, BUN 25, creatinine 1.11, GFR 75.8, hemoglobin A1c 5.9, TSH pending. CTA of the head/neck: No acute process of intracranial vasculature. Very small caliber distal right vertebral artery possibly indicative of a high-grade stenosis. The left vertebral artery however is dominant with the vaginal are unremarkable. There is no mass, hematoma, midline shift or acute infarct. Internal carotid arteries are considered unremarkable to the level of the carotid 6 1 intracranial vasculature is unremarkable. Distal right vertebral artery shows evidence of the high-grade stenotic process with partial collateral circulation. Left vertebral artery is dominant with the basilar unremarkable. MRI brain without contrast pending. Decision was made to admit patient to PCU on telemetry for observation for possible TIA versus stroke and further evaluation and treatment. Allergies Allergy/AdvReac Type Severity Reaction Status Date / Time No Known Allergies Allergy Verified 04/14/19 10:56 Home Medications Home Medications Medication Instructions Recorded Confirmed Type aspirin 81 mg tablet 81 mg PO DAILY tab 02/12/19 04/14/19 History cholecalciferol (vitamin D3) 25 1,000 units PO DAILY #30 cap 02/12/19 04/14/19 History mcg (1,000 unit) capsule cyanocobalamin (vitamin B-12) 100 100 mcg PO DAILY tab 02/12/19 04/14/19 History mcg tablet multivitamin 1 tab PO DAILY 02/12/19 04/14/19 History meclizine 25 mg tablet 12.5 - 25 mg PO UD PRN tab 02/14/19 04/14/19 History carvedilol 3.125 mg tablet 3.125 mg PO .COMPLEX #90 tab 02/16/19 04/14/19 Rx hydrochlorothiazide 25 mg tablet 25 mg PO DAILY #90 tab 02/16/19 04/14/19 Rx lisinopril 10 mg tablet 10 mg PO DAILY #90 tab 02/16/19 04/14/19 Rx omeprazole 20 mg capsule,delayed 20 mg PO DAILY #90 cap 02/16/19 04/14/19 Rx release zinc gluconate 50 mg PO DAILY 04/14/19 04/14/19 History Past Med/Surg History Medical History Allergic rhinitis (Chronic) GERD (gastroesophageal reflux disease) (Chronic) Gout (Chronic) Hypertension (Chronic) Sensorineural hearing loss (SNHL) of both ears Surgical History H/O knee surgery H/O shoulder surgery H/O wisdom tooth extraction History of carpal tunnel surgery S/P gastric surgery Family History Father Hypertension Grandmother Hypertension Grandfather Prostate cancer Uncle Prostate cancer Social History Preferred Language: Vietnamese Communication Ability: Effective Beliefs That Will Affect Care: None marital status: Current Living Situation: Spouse current occupational status: employed current occupation: [employer] Other Information That Helps Us Care for You: No Feels Safe at Home: Yes Safety Concerns: Feels Safe At This Time Smoking Status: Former smoker Tobacco Type: smokeless tobacco ; Second Hand Exposure: Yes ; Hx Alcohol Use: Yes Alcohol type: beer Alcohol Intake Frequency: Rarely Hx Substance Use: No caffeine: Yes (tea, soda) Dental Care, Regularly: No Physical Activity Frequency: Does not Exercise Seatbelt Use: always Sunscreen Use: No Review of Systems Review of Systems: All systems reviewed & are unremarkable except as noted in HPI & below Physical Exam Constitutional: WD/WN, vitals as above well developed Eyes: PERRL, conjunctivae normal, anicteric sclerae ENMT: external ear and nose normal, oropharynx normal Neck: trachea midline, no thyromegaly Respiratory: normal respiratory effort, lungs clear to auscultation Cardiovascular: RRR, no murmur, no edema Chest (Breasts): normal inspection/palpation of breasts Gastrointestinal (Abdomen): normal bowel sounds, soft, nontender, no hepatosplenomegaly Musculoskeletal: no cyanosis or clubbing, extremities motor strength 5/5 Skin: no rashes, warm and dry Neurologic: patellar DTR's 2+ bilat, sensation intact Disoriented in time Psychiatric: A+Ox3, euthymic affect Genitourinary: no testicular masses, no penis abnormality Lymphatic: no cervical or axillary lymphadenopathy Results & Data Vital Signs (Past 12 Hours) Vital Signs Temp Pulse Pulse Resp BP BP Pulse Ox 04/14/19 11:01 83 20 149/102 H 95 04/14/19 11:00 83 21 04/14/19 10:46 81 20 97 04/14/19 10:45 84 15 138/96 96 04/14/19 10:31 82 27 H 95 04/14/19 10:30 81 18 157/111 H 97 04/14/19 10:20 90 16 144/96 H 97 04/14/19 10:16 84 19 96 04/14/19 10:15 84 15 144/96 H 95 04/14/19 10:02 86 16 150/111 H 97 04/14/19 10:00 86 23 150/111 H 96 04/14/19 09:47 82 20 144/100 H 96 04/14/19 09:45 86 21 144/100 H 95 04/14/19 09:43 83 20 148/107 H 95 04/14/19 09:42 92 H 19 96 04/14/19 09:35 85 24 173/119 H 04/14/19 09:29 97 04/14/19 09:18 36.4 C L 88 18 174/118 H 97 Code Status & VTE Plan Code Status Full code VTE Prophylaxis Plan VTE Prophylaxis will be ordered: Yes PG Care Time/CCT Total # of Minutes Spent Total Time Spent with Patient: Total time spent is greater than 50% in coordination of care (as documented) at patient's floor/unit and/or counseling patient: (1) Altered mental status Altered mental status type: unspecified Qualified Code(s): R41.82 - Altered mental status, unspecified (2) Hypertension Hypertension type: unspecified Qualified Code(s): I10 - Essential (primary) hypertension
[2019-04-14] MEDS ORDERED: DOXYCYCLINE HYCLATE 100 MG in DEXTROSE 5% 100 ML IV ONE (11:30)
[2019-04-14] MEDS ORDERED: OPTIRAY 320 125ml IV PRN (11:34)
--- NOTE | 2019-04-14 11:48 | CT Scan Report ---
CT angio head w con HISTORY: Mental status change TIA v stroke TECHNIQUE: Multiaxial CT angiography of the head was performed IV contrast: 100 cc Maximum intensi ty projection images were also obtained. A dose lowering technique was utilized adhering to the prin ciples of ENZO. COMPARISON: None. FINDINGS: There is no mass, hematoma, midline shift, or acute infarct. Internal carotid arteries are considered unremarkable to the level of the carotid siphon intracranial vasculature is unremarkable. Distal right vertebral artery shows evidence for a high grade stenotic process with partial collatera l circularization. Left vertebral artery is dominant with the basilar unremarkable. IMPRESSION: 1. No acute process of the intracranial vasculature. 2. Very small caliber distal right vertebral artery possibly indicative of a high-grade stenosis. The left vertebral artery, however is dominant with the basilar unremarkable. The above report was generated using voice recognition software. It may contain grammatical, syntax or spelling errors. Electronically signed by: Grayson Joe M.D. 04/14/2019 11:46 AM
[2019-04-14] MEDS ORDERED: PHARMACIST DISCHARGE MED REC CONSULT PRN (11:50)
[2019-04-14] MEDS ORDERED: POLYETHYLENE (MIRALAX) 17 GM PACK PO PRN (11:50)
[2019-04-14] MEDS ORDERED: ALUMINUM/MAGNESIUM SUSP 30 ML UDC PO PRN (11:50)
[2019-04-14] MEDS ORDERED: ACETAMINOPHEN 325 MG TAB PO PRN (11:50)
[2019-04-14] MEDS ORDERED: MAGNESIUM HYDROXIDE SUSP 30 ML UDC PO PRN (11:50)
[2019-04-14] MEDS ORDERED: ONDANSETRON INJ 2 MG/ML 2 ML VIAL IV PRN (11:50)
--- NOTE | 2019-04-14 11:51 | CT Scan Report ---
CT angio neck with con HISTORY: TIA v stroke TECHNIQUE: Multiaxial CT angiography of the neck was performed IV contrast: 100 cc All measurements were calculated based on NASCET criteria. Maximum intensity projection images were also obtained. A dose lowering technique was utilized adhering to the principles of ALARA. COMPARISON STUDY: None. FINDINGS: The aortic arch and proximal great vessels are widely patent. There is no significant sten osis of the carotid systems. There is minimal plaque formation at the carotid bifurcations. The left vertebral artery is dominant. Basilar is unremarkable. 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 There appears to be high-grade steno sis at its distal aspect although collateral flow appears to be present. IMPRESSION: 1. Minimal plaque formation of the carotid systems with no significant stenosis. 2. Dominant left vertebral artery and basilar. 3. Small caliber right vertebral artery with a high-grade stenosis at its distal aspect. The above report was generated using voice recognition software. It may contain grammatical, syntax or spelling errors. Electronically signed by: Grayson Joe M.D. 04/14/2019 11:50 AM
[2019-04-14 11:53] LABS: Lyme Ab IgG w/WB Rflx Negative (Negative)
--- NOTE | 2019-04-14 11:56 | Emergency Department Note ---
Entered by Nasir James acting as a scribe for Rigoberto Neumann MD History of Present Illness General Chief complaint: Neuro Symptoms/Deficit Stated complaint: CONFUSION, CAN'T REMEMBER ANYTHING Time Seen by Provider: 04/14/19 09:27 Source: patient, RN notes reviewed and friends History of Present Illness Onset (ago): unknown Location: head Pain Consistency: + other (episode) Quality: + other (confusion) Associated symptoms: + other (+head feels "funny"; -trouble speaking; -trouble swallowing; -trauma; -urinary symptoms); no chest pain, no fever/chills, no headaches and no shortness of breath The patient is a 54 year old male, with past medical history of hypertension, GERD, and allergic rhinitis, who presents to the Emergency Room with complaints of an episode of confusion with unknown onset, according to the RN at triage. The RN notes the patients friend brought him into the hospital after noticing how confused the patient was while they were meeting up to go [employer]. The RN reports that the friend states that him and the patient were supposed to meet up in the same spot they have met up for years to [employer], but the friend reported that the patient did not know where he was when he arrived to the hunting location. The RN notes the patient knew his name and date of at triage but did not know the date. He did know that it was recently Thanksgiving. The RN states the patient was negative for stroke symptoms at triage except for confusion. The patient denies being in any pain currently. The patient also denies trouble speaking, trouble swallowing, chest pain, shortness of breath, trauma, urinary symptoms, or fever. The patient denies a headache, but he notes that his head feels funny. The patient can not recall if he ate today. The RN notes the patients sugar level is 101. The patient states he takes his medications faithfully, every day, including this morning. The patient denies drug or alcohol use. The patient can not recall when he was last well. The friend of the patient states he talked to this patient around 0630, and he states at that time, the patient seemed fine. However, he notes the patient seemed confused upon meeting up with him. 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 Home Medications Home Medications Medication Instructions Recorded Confirmed Type aspirin 81 mg tablet 81 mg PO DAILY tab 02/12/19 04/14/19 History cholecalciferol (vitamin D3) 25 1,000 units PO DAILY #30 cap 02/12/19 04/14/19 History mcg (1,000 unit) capsule cyanocobalamin (vitamin B-12) 100 100 mcg PO DAILY tab 02/12/19 04/14/19 History mcg tablet multivitamin 1 tab PO DAILY 02/12/19 04/14/19 History meclizine 25 mg tablet 12.5 - 25 mg PO UD PRN tab 02/14/19 04/14/19 History carvedilol 3.125 mg tablet 3.125 mg PO .COMPLEX #90 tab 02/16/19 04/14/19 Rx hydrochlorothiazide 25 mg tablet 25 mg PO DAILY #90 tab 02/16/19 04/14/19 Rx lisinopril 10 mg tablet 10 mg PO DAILY #90 tab 02/16/19 04/14/19 Rx omeprazole 20 mg capsule,delayed 20 mg PO DAILY #90 cap 02/16/19 04/14/19 Rx release zinc gluconate 50 mg PO DAILY 04/14/19 04/14/19 History Allergies Allergy/AdvReac Type Severity Reaction Status Date / Time No Known Allergies Allergy Verified 04/14/19 10:56 Past Med/Surg History Medical History Allergic rhinitis (Chronic) GERD (gastroesophageal reflux disease) (Chronic) Gout (Chronic) Hypertension (Chronic) Sensorineural hearing loss (SNHL) of both ears Surgical History H/O knee surgery H/O shoulder surgery H/O wisdom tooth extraction History of carpal tunnel surgery S/P gastric surgery Family History Father Hypertension Grandmother Hypertension Grandfather Prostate cancer Uncle Prostate cancer Social History Preferred Language: [place] Communication Ability: Effective Beliefs That Will Affect Care: None marital status: Current Living Situation: Spouse current occupational status: employed 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 and A total of 10 systems reviewed and were otherwise negative Physical Exam Vital Signs Vital Signs - 24 hr 04/14/19 09:18 04/14/19 09:29 04/14/19 09:30 Temperature 36.4 C L Temperature Source Oral Oral Pulse Rate 88 Pulse Rate [Apical] Pulse Rate from SpO2 Sensor Respiratory Rate 18 Blood Pressure 174/118 H Blood Pressure [Right Arm] Blood Pressure Mean 136 Blood Pressure Mean [Right Arm] Blood Pressure Position Sitting Pulse Oximetry 97 97 Oxygen Delivery Method Room Air Sepsis Recent Fever Within 48 Hours No Sepsis Action Taken by Nursing No Action Required 04/14/19 09:35 04/14/19 09:42 04/14/19 09:43 Temperature Temperature Source Pulse Rate 85 92 H 83 Pulse Rate [Apical] Pulse Rate from SpO2 Sensor 88 84 Respiratory Rate 24 19 20 Blood Pressure 173/119 H 148/107 H Blood Pressure [Right Arm] Blood Pressure Mean 139 124 Blood Pressure Mean [Right Arm] Blood Pressure Position Pulse Oximetry 96 95 Oxygen Delivery Method Sepsis Recent Fever Within 48 Hours Sepsis Action Taken by Nursing 04/14/19 09:45 04/14/19 09:47 04/14/19 10:00 Temperature Temperature Source Pulse Rate 86 86 Pulse Rate [Apical] 82 Pulse Rate from SpO2 Sensor 87 89 Respiratory Rate 21 20 23 Blood Pressure 144/100 H 150/111 H Blood Pressure [Right Arm] 144/100 H Blood Pressure Mean 111 118 Blood Pressure Mean [Right Arm] 114 Blood Pressure Position Pulse Oximetry 95 96 96 Oxygen Delivery Method Room Air Sepsis Recent Fever Within 48 Hours Sepsis Action Taken by Nursing 04/14/19 10:02 04/14/19 10:15 04/14/19 10:16 Temperature Temperature Source Pulse Rate 84 84 Pulse Rate [Apical] 86 Pulse Rate from SpO2 Sensor 88 84 Respiratory Rate 16 15 19 Blood Pressure 144/96 H Blood Pressure [Right Arm] 150/111 H Blood Pressure Mean 107 Blood Pressure Mean [Right Arm] 124 Blood Pressure Position Pulse Oximetry 97 95 96 Oxygen Delivery Method Room Air Sepsis Recent Fever Within 48 Hours Sepsis Action Taken by Nursing 04/14/19 10:20 04/14/19 10:30 04/14/19 10:31 Temperature Temperature Source Pulse Rate 81 82 Pulse Rate [Apical] 90 Pulse Rate from SpO2 Sensor 80 89 Respiratory Rate 16 18 27 H Blood Pressure 157/111 H Blood Pressure [Right Arm] 144/96 H Blood Pressure Mean 119 Blood Pressure Mean [Right Arm] 112 Blood Pressure Position Pulse Oximetry 97 97 95 Oxygen Delivery Method Room Air Sepsis Recent Fever Within 48 Hours Sepsis Action Taken by Nursing 04/14/19 10:45 04/14/19 10:46 Temperature Temperature Source Pulse Rate 84 81 Pulse Rate [Apical] Pulse Rate from SpO2 Sensor 85 82 Respiratory Rate 15 20 Blood Pressure 138/96 Blood Pressure [Right Arm] Blood Pressure Mean 104 Blood Pressure Mean [Right Arm] Blood Pressure Position Pulse Oximetry 96 97 Oxygen Delivery Method Sepsis Recent Fever Within 48 Hours Sepsis Action Taken by Nursing General: Non-ill appearing middle aged male in no acute distress. HEENT: Normal cephalic atraumatic. Pupils are equal round and reactive to light. Extraocular movements are intact. Oropharynx is pink with moist mucous membranes. No swelling of the mouth lips or tongue. Neck: Supple with a midline trachea. No meningeal signs or stiffness, no JVD or bruits. No Stridor. Chest: Clear to auscultation bilaterally. No wheezes or rhonchi. No increased work of breathing. Heart: regular rate and rhythm. Abdomen: Soft nontender, nondistended without rebound guarding or rigidity. Extremities: No cyanosis clubbing or edema. No calf tenderness or asymmetry Spine/Back. Non tender to palpation. No CVA tenderness Skin: Good turgor without rashes. Neurologic exam: Cranial nerves two through 12 are intact. Motor and sensation are intact and symmetrical throughout. Alert to person, place, but not to date. Answers most questions appropriately but has amnesia to events earlier today. Names objects and speaks without difficulty. No tremor. Course Course 0925: A stroke alert was called for the patient in triage. The patient was taken to CT. 0932: I discussed the patient's case with Dr. Nixon-Stroke Neurology [facility]. 0933: Past medical records reviewed. The patient was evaluated in room A1. A complete history and physical exam was performed. 0948: I discussed the patient's case with Dr. Bennett Mendoza. 1015: I reviewed the patient's case with Dr. Stauffer-[facility] Hospitalist. Dr. Stauffer will evaluate the patient for further management. 1023: I discussed the patient's case with Dr. Bennett Mendoza. She agrees that the patient is not a TPA candidate. 1114: I discussed the patient's case with the patient's . 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 She states he had symptoms of fever and weakness during that time. Consultations Consultation #1: I discussed the patient's case with Dr. Shad Mendoza. Time: 09:32 Consultation #2: I discussed the patient's case with Dr. Shad Mendoza. Time: 09:48 Consultation #3: I discussed the patient's case with Dr. Bennett Mendoza. She agrees that the patient is not a TPA candidate. Time: 10:23 Additional Consultation(s): 1015: I reviewed the patient's case with Dr. Stauffer-[facility] Hospitalist. Dr. Stauffer will evaluate the patient for further management. Administered Medications Atorvastatin Calcium (Lipitor) 40 mg PO QAM [facility] Stop: 05/14/19 11:49 Last Admin: 04/14/19 12:23 Dose: 40 mg Documented by: [id number] Enoxaparin Sodium (Lovenox) 40 mg SQ Q24H [facility] Stop: 05/14/19 13:59 Last Admin: 04/14/19 14:28 Dose: 40 mg Documented by: [id number] Discontinued Medications Doxycycline Hyclate 100 mg/ (Dextrose) 110 mls @ 50 mls/hr IV TODAY@1130 ONE Stop: 04/14/19 13:41 Last Admin: 04/14/19 12:00 Dose: 50 mls/hr Documented by: [id number] Ioversol (Optiray 320 125ml) 120 ml IV ONCE PRN PRN Reason: Interaction Checking Stop: 04/18/19 11:33 Last Admin: 04/14/19 11:34 Dose: 120 ml Documented by: [id number] Medical Decision Making Differential Diagnosis Differential diagnoses include stroke, TIA, transient global amnesia, infection, electrolyte or metabolic imbalance, trauma, amongst others that were considered. Medical Records Attestation: I reviewed the patient's medical records. Home Medications Current Medication List: was personally reviewed by me Laboratory Data Attestation: I reviewed the patient's lab results. Result diagrams: 04/14/19 09:36 04/14/19 09:36 Lab Results 04/14/19 04/14/19 04/14/19 Range/Units 09:35 09:36 09:36 WBC 7.81 (4.8-10.8) K/uL RBC 5.58 (4.7-6.1) M/uL Hgb 16.4 (14.0-18.0) g/dL POC Hgb (14.0-18.0) g/dl Hct 46.7 (42-52) % POC Hct (42-52) % MCV 83.7 (80-100) fL MCH 29.4 (25-34) pg MCHC 35.1 (32-36) g/dL RDW Std Deviation 40.1 (36.4-46.3) fL RDW Coeff of Ron 13.3 (11.5-14.5) % Plt Count 257 (130-400) K/uL MPV 9.0 (7.4-10.4) fL PT 10.6 (9.0-12.0) Seconds INR 1.0 (0.9-1.1) APTT 29.1 (21.0-31.0) Seconds PTT Ratio 1.1 POC Sodium (135-144) mEq/L Sodium (136-145) mmol/L POC Potassium (3.3-5.0) mEq/L Potassium (3.5-5.1) mmol/L POC Chloride (101-112) mEq/L Chloride (98-107) mmol/L Carbon Dioxide (21-32) mmol/L POC Total CO2 (24-31) mEq/l Anion Gap (3-11) POC Anion Gap (16-25) mmol/L POC BUN (7-18) mg/dl BUN (7-18) mg/dl Creatinine (0.6-1.4) mg/dl POC Creatinine (0.6-1.3) mg/dl Est Cr Clr Drug Dosing ml/min Est GFR ( Amer) Est GFR (Non-Af Amer) BUN/Creatinine Ratio (10-20) Glucose (70-99) mg/dl POC Glucose 101 H (70-99) POC Glucose (other) (70-99) mg/dl Calcium (8.5-10.1) mg/dl POC Ioniz Calcium Donald (1.12-1.32) mmol/l Magnesium (1.8-2.4) mg/dl Total Bilirubin (0.2-1) mg/dl AST (15-37) U/L ALT (12-78) U/L Alkaline Phosphatase (45-117) U/L Troponin I (0-0.045) ng/ml Total Protein (6.4-8.2) gm/dl Albumin (3.4-5.0) gm/dl Globulin (2.5-4.0) gm/dl Albumin/Globulin Ratio (0.9-2) Lyme Disease IgG Ab (Negative) Lyme Disease IgM Ab (Negative) Blood Type Antibody Screen 04/14/19 04/14/19 04/14/19 Range/Units 09:36 09:36 09:40 WBC (4.8-10.8) K/uL RBC (4.7-6.1) M/uL Hgb (14.0-18.0) g/dL POC Hgb (14.0-18.0) g/dl Hct (42-52) % POC Hct (42-52) % MCV (80-100) fL MCH (25-34) pg MCHC (32-36) g/dL RDW Std Deviation (36.4-46.3) fL RDW Coeff of Ron (11.5-14.5) % Plt Count (130-400) K/uL MPV (7.4-10.4) fL PT (9.0-12.0) Seconds INR (0.9-1.1) APTT (21.0-31.0) Seconds PTT Ratio POC Sodium (135-144) mEq/L Sodium 138 (136-145) mmol/L POC Potassium (3.3-5.0) mEq/L Potassium 3.9 (3.5-5.1) mmol/L POC Chloride (101-112) mEq/L Chloride 104 (98-107) mmol/L Carbon Dioxide 26 (21-32) mmol/L POC Total CO2 (24-31) mEq/l Anion Gap 7.0 (3-11) POC Anion Gap (16-25) mmol/L POC BUN (7-18) mg/dl BUN 25 H (7-18) mg/dl Creatinine 1.11 (0.6-1.4) mg/dl POC Creatinine (0.6-1.3) mg/dl Est Cr Clr Drug Dosing 86.5 ml/min Est GFR ( Amer) 88.0 Est GFR (Non-Af Amer) 75.9 BUN/Creatinine Ratio 22.6 H (10-20) Glucose 103 H (70-99) mg/dl POC Glucose (70-99) POC Glucose (other) (70-99) mg/dl Calcium 9.4 (8.5-10.1) mg/dl POC Ioniz Calcium Donald (1.12-1.32) mmol/l Magnesium 2.0 (1.8-2.4) mg/dl Total Bilirubin 1.4 H (0.2-1) mg/dl AST 13 L (15-37) U/L ALT 30 (12-78) U/L Alkaline Phosphatase 86 (45-117) U/L Troponin I < 0.015 (0-0.045) ng/ml Total Protein 8.2 (6.4-8.2) gm/dl Albumin 4.3 (3.4-5.0) gm/dl Globulin 3.9 (2.5-4.0) gm/dl Albumin/Globulin Ratio 1.1 (0.9-2) Lyme Disease IgG Ab Negative (Negative) Lyme Disease IgM Ab Positive A (Negative) Blood Type B Positive Antibody Screen NEGATIVE 04/14/19 Range/Units 09:52 WBC (4.8-10.8) K/uL RBC (4.7-6.1) M/uL Hgb (14.0-18.0) g/dL POC Hgb 16.3 (14.0-18.0) g/dl Hct (42-52) % POC Hct 48 (42-52) % MCV (80-100) fL MCH (25-34) pg MCHC (32-36) g/dL RDW Std Deviation (36.4-46.3) fL RDW Coeff of Ron (11.5-14.5) % Plt Count (130-400) K/uL MPV (7.4-10.4) fL PT (9.0-12.0) Seconds INR (0.9-1.1) APTT (21.0-31.0) Seconds PTT Ratio POC Sodium 139 (135-144) mEq/L Sodium (136-145) mmol/L POC Potassium 3.9 (3.3-5.0) mEq/L Potassium (3.5-5.1) mmol/L POC Chloride 103 (101-112) mEq/L Chloride (98-107) mmol/L Carbon Dioxide (21-32) mmol/L POC Total CO2 27 (24-31) mEq/l Anion Gap (3-11) POC Anion Gap 14.0 L (16-25) mmol/L POC BUN 26 H (7-18) mg/dl BUN (7-18) mg/dl Creatinine (0.6-1.4) mg/dl POC Creatinine 1.0 (0.6-1.3) mg/dl Est Cr Clr Drug Dosing ml/min Est GFR ( Amer) Est GFR (Non-Af Amer) BUN/Creatinine Ratio (10-20) Glucose (70-99) mg/dl POC Glucose (70-99) POC Glucose (other) 103 H (70-99) mg/dl Calcium (8.5-10.1) mg/dl POC Ioniz Calcium Donald 1.18 (1.12-1.32) mmol/l Magnesium (1.8-2.4) mg/dl Total Bilirubin (0.2-1) mg/dl AST (15-37) U/L ALT (12-78) U/L Alkaline Phosphatase (45-117) U/L Troponin I (0-0.045) ng/ml Total Protein (6.4-8.2) gm/dl Albumin (3.4-5.0) gm/dl Globulin (2.5-4.0) gm/dl Albumin/Globulin Ratio (0.9-2) Lyme Disease IgG Ab (Negative) Lyme Disease IgM Ab (Negative) Blood Type Antibody Screen Imaging Data Radiologist's Impression: Radiology results as stated below per my review and the radiologist's interpretation: XR chest 1V portable CLINICAL HISTORY: stroke alert COMPARISON STUDY: 08/14/2016 FINDINGS: The bones soft tissues and hemidiaphragms are normal. The card iomediastinal silhouette is normal. The lungs are clear. The pulmonary vasculature is normal. IMPRESSION: Negative chest. The above report was generated using voice recognition software. It may contain grammatical, syntax or spelling errors. Electronically signed by: Grayson Joe M.D. 04/14/2019 9:[address] head/brain wo con CT DOSE: 614.27 mGy.cm HISTORY: Stroke Alert TECHNIQUE: Multiaxial CT images of the head were performed without the use of intravenous contrast. A dose lowering technique was utilized adhering to the principles of ALARA. Comparison: None. Findings: The paranasal sinuses and mastoid air cells are clear. The calvarium and skull base are intact. The ventricles and sulci are within normal limits. There is no mass, hematoma, midline shift, or acute infarct. Impression: No acute intracranial abnormality. The above report was generated using voice recognition software. It may contain grammatical, syntax or spelling errors. Electronically signed by: Grayson Joe M.D. 04/14/2019 9:33 AM ECG Data Attestation: I personally reviewed and interpreted this ECG as follows: Indication: + altered mental status Rate (beats per minute): 78 Rhythm: + normal sinus ECG ST segments: no ST depression and no ST elevation ECG Findings: no PACs and no PVCs Comparison ECG Date: from (07/04/17) Change: no significant change Blood Pressure Blood Pressure Findings: Elevated blood pressure Blood Pressure Disposition: elevated BP felt to be situational MDM Narrative This patient comes in as described above. He was placed in room A1. He presented to triage were the nurse called a stroke alert. I saw him promptly. He has been in his usual state of health and went hunting at 630 his friend said at 730. He had a phone call that he was confused and lost. He was hunting in the area that he knows very well. They brought him into the ER his only complaint is confusion. he has no focal neurologic deficits otherwise . He is alert to person and place but not year he answers questions appropriately about his and job and older memories. I did talk to Dr. Diaz from stroke neurology and she did evaluate him in the ER as well. She does not feel he is a TPA candidate due to the fact that he has a very low stroke score and other potential etiologies for symptoms. I agree. 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 He was fine this morning no recent fevers he is afebrile here and has no white count he certainly does not look toxic. He has no meningeal signs or stiffness. At this point I, do not think is likely related to Lyme although that would still be in the differential. CAT scan of his head is unremarkable. He has no acute electrolyte or metabolic abnormality. EKG is unremarkable and he has nothing she has acute coronary syndrome or significant arrhythmia. I do think he needs to be admitted for further treatment and evaluation he would need further neuroimaging. This may be more of a transient global amnesia type picture. He may need further work-up in the hospital including a spinal tap if his symptoms do not resolve and the neuro imaging continues to be negative. I have discussed case with Dr. Alonso and she agrees with the plan and will be admitting the patient. Impression & Plan Altered mental status, Hypertension, Amnesia, GERD (gastroesophageal reflux disease) Discharge Plan Visit Data *Final* Discharge Date/Time: 04/14/19 11:24 Chief Complaint: Neuro Symptoms/Deficit Stated Complaint: CONFUSION, CAN'T REMEMBER ANYTHING ED Provider: Rigoberto Neumann Discharge Problem: Altered mental status, Hypertension, Amnesia, GERD (gastroesophageal reflux disease) Patient Disposition: Being Evaluated by Hospitalist Discharge Instructions Interventions: ED Discharge Assessment Last Done: 04/14/19 11:24 Discharge Problem: Altered mental status Qualifiers: Altered mental status type: unspecified Qualified Code(s): R41.82 - Altered mental status, unspecified Hypertension Qualifiers: Hypertension type: unspecified Qualified Code(s): I10 - Essential (primary) hypertension GERD (gastroesophageal reflux disease) Qualifiers: Esophagitis presence: without esophagitis Qualified Code(s): K21.9 - Gastro- esophageal reflux disease without esophagitis The scribe's documentation has been prepared under my direction and personally reviewed by me in its entirety. I confirm that the note above accurately reflects all work, treatment, procedures, and medical decision making performed by me.
[2019-04-14 11:57] LABS: Lyme Ab IgM w/WB Rflx Positive (Negative)
[2019-04-14] MEDS: ATORVASTATIN 40 MG TAB PO SCH (12:23)
[2019-04-14 12:39] LABS: Estimated Average Glucose 123 mg/dl; Hemoglobin A1C 5.9 % (4.5-5.6)
[2019-04-14 13:41] LABS: Thyroid Stimulating Hormone 0.709 uIu/ml (0.300-4.500)
--- NOTE | 2019-04-14 13:55 | Magnetic Resonance Report ---
MR brain wo con HISTORY: Mental status change TIA v stroke TECHNIQUE: Multiplanar multisequence MRI of the brain was performed without the use of contrast. COMPARISON STUDY: 09/28/2017 FINDINGS: There are no areas of restricted diffusion to suggest acute infarction. The midline structu res are intact. The paranasal sinuses are clear. The mastoid air cells are clear. The ventricles and sulci are within normal limits for age. There is no mass, hematoma, midline shift. The major vascular flow-voids at the skull base are well maintained. IMPRESSION: No acute intracranial abnormality. Normal study. No change from the prior exam. The above report was generated using voice recognition software. It may contain grammatical, syntax or spelling errors. Electronically signed by: Grayson Joe M.D. 04/14/2019 1:53 PM
[2019-04-14] MEDS ORDERED: ENOXAPARIN INJ 40 MG/0.4 ML SYR SQ SCH (14:00)
--- NOTE | 2019-04-14 14:58 | Neurology Consultation ---
Date of Consultation April 14, 2019 Assessment & Plan (1) Altered mental status: Chao Rodriguez is a 54 yo man w/ PMH of HTN, GERD, sensorineural hearing loss, gout, allergic rhinitis, h/o Lyme meningitis and h/o gastric bypass who p/t [facility] w/ acute onset confusion. # Acute onset memory loss/confusion: if it were a stroke, would localize to the anterior temporal lobe, however, no infarct identified on MRI brain. Symptoms most consistent with transient global amnesia, however would continue workup/treatment for other causes of AMS as follows: - give thiamine/folate/MV given unclear alcohol history and h/o gastric bypass - check the following labs: B12, folate, thiamine, UDS, UA - if spikes a fever (temp>100.4F) and no other source of AMS identified, low threshold to LP and r/o SKIN CARE THERAPIST infection - if symptoms resolve by 12/1 AM, most likely represented transient global amnesia -if symptoms persist beyond tomorrow AM, would obtain EEG Thank you for this interesting consult. Please call or page with questions. (2) Memory loss: History of Present Illness Attending Physician: Micah Stauffer MD History of Present Illness Chao Rodriguez is a 54 yo man w/ PMH of HTN, GERD, sensorineural hearing loss, gout, allergic rhinitis, h/o Lyme meningitis and h/o gastric bypass who p/t [facility] w/ acute onset confusion. 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 Denied any numbness/tingling/weakness, headaches or other neurological symptoms. Lab work in the ED showed WBC 7.81, Hb 16.4, Plts 257, INR 1.0, Na 138, CO2 26, BUN 25, Cr 1.11,glucose 103, A1c 5.9, Ca/Mg WNL, troponin negative, TSH WNL, Lyme IgG negative/IgM positive (exact bands pending). CTH no hemorrhage or hypodensity. 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 MRI brain shows no acute infarct, minimal SVID, no hemorrhage nor mass lesion (per my read). On examination this afternoon, he reports that he does not remember anything after telling his that eh was going hunting early in the morning. He knows that he was at his [place] because he has text messages between him and his friend, but remembers nothing of driving there or how he got to the hospital. Family is in the room and report that he seemed to be in his normal state of health when he left home this morning. They do endorse that he had a recent upper respiratory infection last week with some residual cough and has been having increasing frequency of a bifrontal headache (no associated nausea, vomiting, photophobia, positive photophobia). He denies any fever, chills, numbness, tingling, weakness, rash. He does remember distant things and can tell you what happened a few days ago and that it was recently Thanksgiving. He does feel that his symptoms are improving slowly. Allergies Allergy/AdvReac Type Severity Reaction Status Date / Time No Known Allergies Allergy Verified 04/14/19 10:56 Home Medications Home Medications Medication Instructions Recorded Confirmed Type aspirin 81 mg tablet 81 mg PO DAILY tab 02/12/19 04/14/19 History cholecalciferol (vitamin D3) 25 1,000 units PO DAILY #30 cap 02/12/19 04/14/19 History mcg (1,000 unit) capsule cyanocobalamin (vitamin B-12) 100 100 mcg PO DAILY tab 02/12/19 04/14/19 History mcg tablet multivitamin 1 tab PO DAILY 02/12/19 04/14/19 History meclizine 25 mg tablet 12.5 - 25 mg PO UD PRN tab 02/14/19 04/14/19 History carvedilol 3.125 mg tablet 3.125 mg PO .COMPLEX #90 tab 02/16/19 04/14/19 Rx hydrochlorothiazide 25 mg tablet 25 mg PO DAILY #90 tab 02/16/19 04/14/19 Rx lisinopril 10 mg tablet 10 mg PO DAILY #90 tab 02/16/19 04/14/19 Rx omeprazole 20 mg capsule,delayed 20 mg PO DAILY #90 cap 02/16/19 04/14/19 Rx release zinc gluconate 50 mg PO DAILY 04/14/19 04/14/19 History atorvastatin 40 mg PO QAM 30 Days #30 tab 04/15/19 Rx doxycycline hyclate 100 mg PO BID 13 Days #27 cap 04/15/19 Rx Patient History Medical History Allergic rhinitis (Chronic) GERD (gastroesophageal reflux disease) (Chronic) Gout (Chronic) Hypertension (Chronic) Sensorineural hearing loss (SNHL) of both ears Surgical History H/O knee surgery H/O shoulder surgery H/O wisdom tooth extraction History of carpal tunnel surgery S/P gastric surgery Family History Father Hypertension Grandmother Hypertension Grandfather Prostate cancer Uncle Prostate cancer Social History Preferred Language: Divehi Communication Ability: Effective Beliefs That Will Affect Care: None marital status: Current Living Situation: Spouse current occupational status: employed current occupation: [employer] Other Information That Helps Us Care for You: No Feels Safe at Home: Yes Safety Concerns: Feels Safe At This Time Smoking Status: Former smoker Tobacco Type: smokeless tobacco ; Second Hand Exposure: Yes ; Hx Alcohol Use: Yes Alcohol type: beer Alcohol Intake Frequency: Rarely Hx Substance Use: No caffeine: Yes (tea, soda) Dental Care, Regularly: No Physical Activity Frequency: Does not Exercise Seatbelt Use: always Sunscreen Use: No Review of Systems Review of Systems: 14 point review of systems completed and negative except as in HPI. Physical Exam Physical Exam: General Exam: GEN: NAD, sitting in chair. HEENT: No conjunctival injection, no rhinorrhea. CV: RRR, no peripheral edema PULM: Nonlabored respirations on room air. Neuro Exam: MS: Awake and Alert. Oriented to person, place, and month/year but not date. Speech fluent and appropriate without dysarthria or paraphasic errors. Language intact including naming, comprehension, repetition. Cognition and memory grossly intact. Attention intact. No neglect. CN: Visual vo full. No extinction to double simultaneous stimuli. No optic disc edema on fundoscopic exam. PERRLA OU. EOMI without nystagmus. Facial sensation intact to LT. Facial muscles full and symmetric. Hearing intact to conversation. Uvula midline with symmetric palatal elevation. Shoulder shrug normal. Tongue midline. MOTOR: Normal bulk and tone. No pronator drift. BUE strength 5/5 at deltoids, biceps, triceps, wrist flexors and extensors, and finger flexors bilaterally. BLE strength 5/5 at iliopsoas, hamstrings, quadriceps, tibialis anterior, and gastrocnemius bilaterally. REFLEXES: 2+ at biceps, triceps, brachioradialis, patella and Achilles bilaterally. Flexor plantar responses bilaterally. SENSORY: Intact to LT without extinction to double simultaneous stimuli. Vibration and temperature intact throughout. COORDINATION: No dysmetria or ataxia on [id number] bilaterally. Normal Nathaly bilaterally. GAIT: Normal gait and arm swing. Positive Romberg. Results & Data Vital Signs (Past 12 Hours) Vital Signs Temp Pulse Pulse Resp BP BP Pulse Ox 04/14/19 13:04 86 04/14/19 12:00 36.9 C 84 20 152/103 H 94 04/14/19 11:50 04/14/19 11:24 80 16 135/97 97 04/14/19 11:01 83 20 149/102 H 95 04/14/19 11:00 83 21 04/14/19 10:46 81 20 97 04/14/19 10:45 84 15 138/96 96 04/14/19 10:31 82 27 H 95 04/14/19 10:30 81 18 157/111 H 97 04/14/19 10:20 90 16 144/96 H 97 04/14/19 10:16 84 19 96 04/14/19 10:15 84 15 144/96 H 95 04/14/19 10:02 86 16 150/111 H 97 04/14/19 10:00 86 23 150/111 H 96 04/14/19 09:47 82 20 144/100 H 96 04/14/19 09:45 86 21 144/100 H 95 04/14/19 09:43 83 20 148/107 H 95 04/14/19 09:42 92 H 19 96 04/14/19 09:35 85 24 173/119 H 04/14/19 09:29 97 04/14/19 09:18 36.4 C L 88 18 174/118 H 97 Pulse Ox 04/14/19 13:04 04/14/19 12:00 04/14/19 11:50 96 04/14/19 11:24 04/14/19 11:01 04/14/19 11:00 04/14/19 10:46 04/14/19 10:45 04/14/19 10:31 04/14/19 10:30 04/14/19 10:20 04/14/19 10:16 04/14/19 10:15 04/14/19 10:02 04/14/19 10:00 04/14/19 09:47 04/14/19 09:45 04/14/19 09:43 04/14/19 09:42 04/14/19 09:35 04/14/19 09:29 04/14/19 09:18 PG Care Time/CCT Total # of Minutes Spent Total Time Spent with Patient: Total time spent is greater than 50% in coordination of care (as documented) at patient's floor/unit and/or counseling patient: (1) Altered mental status Altered mental status type: unspecified Qualified Code(s): R41.82 - Altered mental status, unspecified
--- NOTE | 2019-04-14 15:41 | Ultrasound Report ---
US venous doppler LE BI HISTORY: Pain. Edema. possible DVT COMPARISON STUDY: None. FINDINGS: There is normal compressibility, flow, and augmentation within the bilateral lower extremit y deep venous systems. IMPRESSION: No DVT within the right or left lower extremity. The above report was generated using voice recognition software. It may contain grammatical, syntax or spelling errors. Electronically signed by: Grayson Joe M.D. 04/14/2019 3:39 PM
[2019-04-14] MEDS: OMEGA-3 (PURIFIED FISH OIL) 1 GM CAP PO SCH (20:05)
[2019-04-15 06:42] LABS: Basophils # (auto) 0.03 K/uL (0-0.2); Basophils % (auto) 0.6 %; Eosinophils % (auto) 1.9 %; Hematocrit (blood only) 45.2 % (42-52); Hemoglobin 15.7 g/dL (14.0-18.0); Immature Granulocytes # (auto) 0.01 K/uL (0.00-0.02); Immature Granulocytes % (auto) 0.2 %; Lymphocytes # (auto) 2.06 K/uL (1.2-3.4); Lymphocytes % (auto) 39.5 %; Mean Corpuscular Hemoglobin 29.1 pg (25-34); Mean Corpuscular Hgb Conc 34.7 g/dL (32-36); Mean Corpuscular Volume 83.7 fL (80-100); Mean Platelet Volume 9.1 fL (7.4-10.4); Monocytes # (auto) 0.52 K/uL (0.11-0.59); Neutrophils % (auto) 47.8 %; Platelet Count 204 K/uL (130-400); RDW Coefficient of Variation 13.6 % (11.5-14.5); RDW Standard Deviation 41.4 fL (36.4-46.3); White Blood Count 5.22 K/uL (4.8-10.8)
[2019-04-15 07:17] LABS: Albumin Level 3.9 gm/dl (3.4-5.0); BUN Creatinine Ratio 23.4 (10-20); Creatinine Clr Calc Pharmacy 96.7 ml/min; Est GFR (African American) 102.3; Est GFR (Non-African American) 88.3
[2019-04-15 07:20] LABS: Albumin Globulin Ratio 1.1 (0.9-2); Bilirubin,Total 1.6 mg/dl (0.2-1); Globulin 3.7 gm/dl (2.5-4.0); Total Protein 7.6 gm/dl (6.4-8.2)
[2019-04-15] MEDS: OMEGA-3 (PURIFIED FISH OIL) 1 GM CAP PO SCH (08:18)
[2019-04-15] MEDS: ATORVASTATIN 40 MG TAB PO SCH (08:19)
[2019-04-15] MEDS ORDERED: DOXYCYCLINE HYCLATE 100 MG CAP PO SCH (09:00)
[2019-04-15] MEDS ORDERED: carvediloL 3.125 MG TAB PO SCH (09:00)
[2019-04-15] MEDS ORDERED: PANTOprazole 40 MG TAB PO SCH (09:00)
[2019-04-15] MEDS ORDERED: NON-FORMULARY MEDICATION (Zinc Gluconate 50 MG) PO SCH (09:00)
[2019-04-15] MEDS ORDERED: CHOLECALCIFEROL 1,000 UNITS TAB PO SCH (09:00)
[2019-04-15] MEDS ORDERED: lisinopriL 20 MG TAB PO SCH (09:00)
[2019-04-15] MEDS ORDERED: lisinopriL 10 MG TAB PO SCH (09:00)
[2019-04-15] MEDS ORDERED: MULTIVITAMIN TAB PO SCH (09:00)
[2019-04-15] MEDS ORDERED: hydroCHLOROthiazide 25 MG TAB PO SCH (09:00)
[2019-04-15] MEDS ORDERED: CYANOCOBALAMIN (VITAMIN B-12) 100 MCG TABLET PO SCH (09:00)
--- NOTE | 2019-04-15 10:42 | Discharge Summary ---
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 The [place] said he is supposed to meet them up at the spots when they meet out for years to person but patient did not know where he was and how he arrived to the hunting location. Patient is disoriented in time. He was able to recall his name and date of . Patient also do not recall that with just positive Thanksgiving. All other stroke symptoms were negative. Patient's sugar level was 101. Patient states that he takes his blood pressure medicine every day and he denies drug or alcohol use. Last time when his friend spoke to him at 630 this morning stated that the patient was fine the conversation occurred over the phone. 2 years ago patient had Lyme meningitis symptoms and was not able to walk he was hospitalized for 10 days at that time patient completed 1 months of therapy for Lyme disease with doxycycline. His at the bedside stated that patient very sick at that time had fever he was not able to walk and had hallucinations. Patient denies fever, chills, chest pain, shortness of breath, abdominal pain, frequency, urgency, hematuria, dysuria. Labs are reviewed: WBC is 7.81, hemoglobin 16.4, hematocrit 46.7, platelets 257, PT 10.6, INR 1, APTT 29.1, sodium 138, potassium 3.9, chloride 104, carbon dioxide 26, anion gap 7, BUN 25, creatinine 1.11, GFR 75.8, hemoglobin A1c 5.9, TSH pending. CTA of the head/neck: No acute process of intracranial vasculature. Very small caliber distal right vertebral artery possibly indicative of a high-grade stenosis. The left vertebral artery however is dominant with the vaginal are unremarkable. There is no mass, hematoma, midline shift or acute infarct. Internal carotid arteries are considered unremarkable to the level of the carotid 6 1 intracranial vasculature is unremarkable. Distal right vertebral artery shows evidence of the high-grade stenotic process with partial collateral circulation. Left vertebral artery is dominant with the basilar unremarkable. MRI brain without contrast pending. Decision was made to admit patient to PCU on telemetry for observation for possible TIA versus stroke and further evaluation and treatment. Admission Exam Per Admitting Provider Constitutional: WD/WN, vitals as above well developed Eyes: PERRL, conjunctivae normal, anicteric sclerae ENMT: external ear and nose normal, oropharynx normal Neck: trachea midline, no thyromegaly Respiratory: normal respiratory effort, lungs clear to auscultation Cardiovascular: RRR, no murmur, no edema Chest (Breasts): normal inspection/palpation of breasts Gastrointestinal (Abdomen): normal bowel sounds, soft, nontender, no hepatosplenomegaly Musculoskeletal: no cyanosis or clubbing, extremities motor strength 5/5 Skin: no rashes, warm and dry Neurologic: patellar DTR's 2+ bilat, sensation intact Disoriented in time Psychiatric: A+Ox3, euthymic affect Genitourinary: no testicular masses, no penis abnormality Lymphatic: no cervical or axillary lymphadenopathy Principal Diagnosis Transient Global Amnesia Discharge Exam General: Alert, oriented. No acute distress, sitting up at side of bed talking. Skin: No noted rashes or bruises Psych: Appropriate mood and affect Neuro: No gross deficits. CN II-XII grossly intact, strength 5/5 in UE and LE bilaterally, no noted slurred speech or facial droop. HEENT: NC/AT, EOMI, oropharynx moist. Chest: Nontender to palpation. CV: RRR, Normal s1, s2. No murmurs appreciated Resp: Breath sounds clear bilaterally, no increased effort of breathing. No crackles/rhonchi/rales. Abdomen: Soft, nontender, nondistended. No guarding. No organomegaly appreciated. Extremities: No edema in lower extremities bilaterally. Discharge Data Allergies Allergy/AdvReac Type Severity Reaction Status Date / Time No Known Allergies Allergy Verified 04/14/19 10:56 Consultations 04/14/19 10:26 ED Decision to Admit Stat 04/14/19 11:50 Consult Case Management - Discharge Planning Routine Consult Neurology Routine Ordered Studies 04/14/19 09:24 CT head/brain wo con Stat 04/14/19 11:02 CT angio head w con Stat CT angio neck with con Stat 04/14/19 11:50 MR brain wo con Routine 04/14/19 13:00 US venous doppler [facility] Hospital Course (1) Transient global amnesia: Mr. Rodriguez is a 54yo gentleman with PMHx of HLD, HTN, GERD, Gout, Allergic rhinitis who presented with acute confusion without symptoms of slurred speech, facial droop or body weakness. Transient Global Amnesia -Pt presented with an acute episode of confusion while hunting. -Symptoms have completely resolved 24hours later. -Head CT, Brain MRI- No acute pathology, no signs of stroke -Head and neck CTA- high grade stenosis noted -Echocardiogram- no evidence of clot; EF 55-60% -Lipids: LDL of 90, triglycerides 169, HDL 45 and total cholesterol 0f 169 -HgbA1c of 5.9 -b12, folate and thiamine levels pending on discharge -Neurology consult-appreciate recs -PT/OT, speech- appreciate recs -Given that symptoms resolved completely with no muscle weakness signs, no Hx of migraines or no acute stressors, pt likely had an episode of acute transient global amnesia. -Though pt has diagnosis of transient global amnesia, discharged with instructions to modify risk factors for stroke/TIA as follows: 1. Continue taking home aspirin 81mg 2. Lifestyle changes for pre-diabetes diagnosis to keep sugars well controlled 3. Continue taking Atorvastatin 40mg started in the hospital for plaque stabilization 4. Continue taking home blood pressure medications (Lisinopril 10mg, carvedilol 3.125mg HCTZ 25mg) and monitoring at home with blood pressure cuff. Close PCP followup of this as outpatient Acute Lyme Disease -Pt with Hx of tick bites and noted positive Lyme IgM titers -Started on PO doxycycline 100mg BID and discharged with a course of doxycycline for a total of 14 days. -Likely not contributing to presenting symptoms and Hx of Lyme meningitis noted. -Close PCP followup needed for this as outpatient HTN: continue home Lisinopril 10mg, carvedilol 3.125mg and HCTZ 25mg as noted above GERD: continue home omeprazole 20mg Health maintenance: continue home multivitamin, zinc, vit B12, vit D supplementation Total Time Total Time Spent Total Time Spent (In Minutes): Greater than 30 Discharge Plan Discharge Items Patient Disposition: Home - Self-Care Reason For Visit: TIA V STROKE, CONFUSSION Discharge Diagnosis: Transient Global Amnesia Activity: Per Instructions section Non-emergency contact: Primary Care Provider Call non-emergency contact if: your symptoms worsen Follow-up/Referrals: Lyly Lo CRNP [Primary Care Provider] - Diet: Carb Consistent or DM2 and Heart Healthy Addtl Attending Provider Instructions: Mr. Rodriguez, you were admitted because you were confused for a short time. We believe you had an episode of transient global amnesia. We watched you overnight and your symptoms seemed to improve. We recommend that you watch your diet (less bread, potatoes, pasta, etc) and what you eat to keep your blood sugars very low as you are pre-diabetic. If you check your sugars about 2 hours after a meal, they should be within the range of 90-120. We recommend that you continue taking your home baby aspirin everyday. We are also starting you on a medication to help with your high cholesterol. Continue to take one pill everyday. Please continue taking your home hypertension medications to keep your blood pressure low. Continue to check your blood pressure at home as discussed. It also appears that you have another Lyme infection. We treated you with doxycycline and are sending you home with a prescription for the next 13 days. Take your first pill this evening. We recommend following up with your primary care doctor in the next week after discharge. If your symptoms return, we recommend coming back to the emergency department as soon as possible. The sooner, the better. It was a pleasure taking care of you during your stay here! Pending Studies at Discharge: No Stand-Alone Forms: My [facility], Smoking Cessation Medications and DC Order Prescriptions: New atorvastatin 40 mg Tablet 40 mg PO QAM 30 Days Qty: 30 RF: 0 doxycycline hyclate 100 mg Capsule 100 mg PO BID 13 Days Qty: 27 RF: 0 Continued aspirin 81 mg tablet 81 mg PO DAILY RF: 0 multivitamin tablet 1 tab PO DAILY RF: 0 cyanocobalamin (vitamin B-12) 100 mcg tablet 100 mcg PO DAILY RF: 0 cholecalciferol (vitamin D3) 1,000 unit capsule 1,000 units PO DAILY Qty: 30 RF: 0 meclizine 25 mg tablet 12.5 - 25 mg PO UD PRN (Reason: Dizziness) RF: 0 lisinopril 10 mg tablet 10 mg PO DAILY Qty: 90 RF: 3 omeprazole 20 mg capsule,delayed release(DR/EC) 20 mg PO DAILY Qty: 90 RF: 3 hydrochlorothiazide 25 mg tablet 25 mg PO DAILY Qty: 90 RF: 3 carvedilol 3.125 mg tablet 3.125 mg PO .COMPLEX Qty: 90 RF: 3 zinc gluconate 50 mg Tablet 50 mg PO DAILY RF: 0 Discharge Orders: Discharge Order (Routine); Ordered 04/15/19 Ordered By: Roxanne Huggins Admission Data Admit Date/Time: 04/14/19 10:59 Attending Provider: Maxwell Gonzalez Admit Provider: Micah Stauffer Primary Care Provider: Lyly Lo Other Providers: Micah Stauffer ; Sonya Man Other Interventions: Discharge Summary Assessment (RN) Last Done: 04/15/19 11:00 DC Date/Time DO NOT enter until pt leaves facility: 04/15/19 12:20 Supervising Physician Co-Signing Physician Notes I personally examined the patient and verified all kaur points of history and exam, discussed case, and agree with decision making with Dr Huggins. Feeling totally better now. No ongoing problems. Memory back to normal. No focal neuro deficits. Neurology input appreciated. Extensive discussion with patient in regards to diagnosis, possible etiologies, and treatment plans. He expressed good understanding. Vitals noted, in general he is awake and alert pleasant no distress. HEENT normocephalic atraumatic mucous membranes moist. No focal neuro deficits. Breathing unlabored no accessory muscle use good effort. Skin shows no rashes no pallor or icterus. Transient global amnesiaalthough multiple etiologies possible, given his hypertension, impaired glucose tolerance, and vertebral stenosis, have to consider vascular disease/atypical TIA mechanism for secondary risk reduction purposes. (To clarify the vertebral stenosis would not have anything to do with memory loss, but rather is simply a sign that he can form vascular disease). Extensive discussion on lifestyle change for sugar and triglycerides, follow blood pressures closely, his spike either could have been a hypertensive urgency precipitating his TGA, or may have been autoregulation from cerebrovascular ischemia if the TGA was ischemia mediated. Continue aspirin, added atorvastatin for plaque stabilization benefits/getting his LDL less than 70, given that with impaired glucose tolerance and the possibility of an ischemic event leading to his TGA that he would benefit from this for secondary risk reduction. Explained the diagnosis and its somewhat difficult elucidation of her it causes in depth, answered all questions the best my ability and to patient satisfaction. Patient stable for home. Resident Activity Tracking Resident Involvement: Resident Care Provided Care Provided: Adult Hospital Medicine
[2019-04-15] MEDS ORDERED: STROKE PATIENT DISCHARGE STA (11:02)
[2019-04-15 11:58] LABS: Folate (Folic Acid) 17.74 ng/ml (>5.38)
--- NOTE | 2019-04-15 15:52 | Billing Data ---
Coding Level of Care Code 07585 OBS Care - Discharge
[2019-04-16 05:55] LABS: Estimated Average Glucose 123 mg/dl; Hemoglobin A1C 5.9 % (4.5-5.6)
[2019-04-18 12:46] LABS: 18KDIGG Band Non-Reactive; 23KDIGG Band Non-Reactive; 28KDIGG Band Non-Reactive; 41KDIGG Band REACTIVE; Lyme Antibodies, WB IgG NEGATIVE; Lyme Antibodies, WB IgM NEGATIVE
[2019-04-18 12:47] LABS: 23KDIGM Band Non-Reactive; 30KDIGG Band Non-Reactive; 39KDIGG Band Non-Reactive; 39KDIGM Band Non-Reactive; 41KDIGM Band REACTIVE; 45KDIGG Band Non-Reactive; 58KDIGG Band Non-Reactive; 66KDIGG Band Non-Reactive; 93KDIGG Band Non-Reactive
== END 2019-04-15 12:20 | disposition home or self-care (01) ==
LOC: ED 09:14 → 2E 09:14 → SUATTDRO 10:59 → 2E 11:24

== ENCOUNTER 2022-12-09 11:02 | Observation (INO) ==
[2022-12-09] MEDS ORDERED: IOVERSOL 350 MG 125mL Prefilled Syringe IV ONE (11:42)
[2022-12-09 11:47] LABS: iSTAT Creatinine 0.8 mg/dl (0.6-1.3); iSTAT Hemoglobin 16.3 g/dl (14.0-18.0); iSTAT Ionized Calcium 1.06 mmol/l (1.12-1.32); iSTAT Potassium 3.9 mmol/L (3.3-5.0)
[2022-12-09 11:47] LABS: Basophils # (auto) 0.06 K/uL (0-0.2); Basophils % (auto) 1.1 %; Eosinophils # (auto) 0.19 K/uL (0-0.50); Eosinophils % (auto) 3.3 %; Hematocrit (blood only) 47.3 % (42.0-52.0); Hemoglobin 16.1 g/dl (14.0-18.0); Immature Granulocytes # (auto) 0.02 K/uL (0.01-0.20); Immature Granulocytes % (auto) 0.4 %; Lymphocytes # (auto) 1.65 K/uL (1.2-3.4); Lymphocytes % (auto) 28.9 %; Mean Corpuscular Hemoglobin 28.5 pg (25.0-34.0); Mean Corpuscular Volume 83.9 fL (80.0-100.0); Mean Platelet Volume 9.4 fL (9.4-12.4); Monocytes # (auto) 0.35 K/uL (0.11-0.59); Monocytes % (auto) 6.1 %; Neutrophils # (auto) 3.43 K/uL (1.40-6.50); Neutrophils % (auto) 60.2 %; Platelet Count 216 K/uL (130-400); RDW Coefficient of Variation 13.3 % (11.5-14.5); Red Blood Count 5.64 M/uL (4.70-6.10)
--- NOTE | 2022-12-09 11:53 | CT Scan Report ---
CT OF THE HEAD WITHOUT CONTRAST CLINICAL HISTORY: neuro deficit, acute stroke suspected COMPARISON STUDY: MRI of the brain April 14, [address] May 26, 2022. TECHNIQUE: Helical axial images of the head were obtained without IV contrast. Automated exposure con trol was utilized for the study. A dose lowering technique was utilized adhering to the principles o f ALARA. FINDINGS: No acute intracranial hemorrhage, midline shift or mass effect is present. The ventricular system is unremarkable. The basal cisterns are patent. No extra-axial collections are present. There are no findings to suggest acute dural sinus thrombosis or acute territorial infarct. No significant calvarial abnormalities are present. Visualized portions of the sinuses and mastoid air cells are lois ar. IMPRESSION: No acute intracranial findings. ACT 112: Negative or not required by law. Electronically signed by: Omero Browning M.D. 12/09/2022 11:51 AM
--- NOTE | 2022-12-09 11:58 | CT Scan Report ---
CT ANGIOGRAPHY OF THE NECK WITH CONTRAST CLINICAL HISTORY: neuro deficit, acute stroke suspected COMPARISON STUDY: CTA of the neck April 14, 2019. Technique: CT angiography of the carotid and vertebral arteries was obtained using [employer] and 3D rec onstruction on an independent workstation. NASCET criteria was utilized. Automated exposure control was utilized for the study. A dose lowering technique was utilized adhering to the principles of ALA RA. CT DOSE: 1335.26 mGy.cm Findings: Visualized portions of the lung apices are unremarkable. There is no cervical lymphadenopat hy. There is no cervical spine fracture. The bilateral common carotid and cervical internal carotid a rteries are patent. There is minimal plaque within the proximal right internal carotid artery. The le ft vertebral artery is dominant and patent. The right vertebral artery is diminutive. This is unchang ed since CT of April 14, 2019. IMPRESSION: 1. Patent bilateral common carotid and cervical internal carotid arteries. 2. Patent, dominant left vertebral artery. 3. 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 ACT 112: Negative or not required by law. Electronically signed by: Omero Browning M.D. 12/09/2022 11:56 AM
[2022-12-09 12:08] LABS: Alanine Aminotransferase 38 U/L (7-52); Albumin Globulin Ratio 1.5 (0.9-2); Albumin Level 4.6 gm/dl (3.4-5.0); Alkaline Phosphatase 80 U/L (34-104); Anion Gap 9 (3-11); Aspartate Aminotransferase 26 U/L (13-39); BUN Creatinine Ratio 29.1 (10-20); Bilirubin,Total 2.1 mg/dl (0.2-1.0); Blood Urea Nitrogen 25 mg/dl (6-23); Calcium 9.2 mg/dl (8.6-10.3); Carbon Dioxide 23 mmol/L (21-32); Chloride 103 mmol/L (98-107); Creatinine Clr Calc Pharmacy 110.6 ml/min; Est GFR (African American) 113.1 ml/min; Est GFR (Non-African American) 97.6 ml/min; Globulin 3.1 gm/dl (2.5-4.0); Glucose 151 mg/dl (70-99(Fasting)); Magnesium 1.9 mg/dl (1.7-2.4); Potassium 3.9 mmol/L (3.5-5.1); Sodium 135 mmol/L (136-145); Total Protein 7.7 gm/dl (6.0-8.3)
[2022-12-09 12:13] LABS: Troponin I High Sensitivity < 2.3 pg/ml (0-20)
--- NOTE | 2022-12-09 12:17 | CT Scan Report ---
CT angio head w con CLINICAL HISTORY: 57 years-old Male with neuro deficit, acute stroke suspected. Acute strokelike s ymptoms COMPARISON STUDY: CTA head and neck of same day and also 04/14/2019 TECHNIQUE: Following the IV administration of 115 cc of Optiray, CT angiogram of the brain was perfor med from the skull base to the vertex. Images are reviewed in the axial, sagittal, and coronal planes . 3-D MIPS images are created and assessed. IV contrast was administered without complication. All me asurements were obtained according to NASCET criteria. A dose lowering technique was utilized adherin g to the principles of ALARA. FINDINGS: CT ANGIOGRAM OF THE BRAIN: The imaged bilateral internal carotid arteries are patent. The bilateral anterior and middle cerebral arteries are also patent. The vertebrobasilar system and posterior cerebral arteries are widely noyola nt. Dominant left vertebral artery with diminutive distal right vertebral artery, likely developmenta l. There is no aneurysm, high-grade stenosis, or proximal branch occlusion identified. Dural sinuses appear patent. Mild polypoid mucosal thickening of the right maxillary sinus. Mastoid air cells are clear. IMPRESSION: Unremarkable CTA. ACT 112: Negative or not required by law. The above report was generated using voice recognition software. It may contain grammatical, syntax o r spelling errors. Electronically signed by: Nghia Darden M.D. 12/09/2022 12:16 PM
--- NOTE | 2022-12-09 12:32 | Emergency Department Note ---
History of Present Illness General Chief complaint: Confusion Stated complaint: CONFUSION Time Seen by Provider: 12/09/22 11:32 Source: patient, family (Coworker who is at the bedside), RN notes reviewed and old records reviewed (12/03/21- Office visit) Mode of arrival: ambulatory Limitations: no limitations History of Present Illness This patient 57-year-old male who called his friend at 930 when he said he could not remember what he was doing or what he had been doing this morning. Besides this he feels okay. he had no numbness or weakness. no difficulty speaking or swallowing. no fall or trauma known although he is not sure what happened he did call a friend at 930 but were unsure when this happened. He his is at home but he said he did not does not typically see her as she works nights. He does not think anybody could confirm his times. Denies chest pain or shortness of breath. He told me he had episode like this once a couple years ago it was diagnosed with Handte transient global amnesia. Home Medications Medication Instructions Recorded Confirmed Type cyanocobalamin (vitamin B-12) 100 100 mcg PO DAILY 02/12/19 12/09/22 History mcg tablet zinc gluconate 50 mg tablet 50 mg PO DAILY 04/14/19 12/09/22 History colchicine 0.6 mg tablet 0.6 mg PO .COMPLEX #3 tabs 12/03/21 12/09/22 Rx lisinopril 10 mg tablet 10 mg PO DAILY #90 tabs 03/11/22 12/09/22 Rx hydrochlorothiazide 25 mg tablet 25 mg PO DAILY #90 tabs 05/11/22 12/09/22 Rx omeprazole 20 mg capsule,delayed 20 mg PO DAILY #90 caps 05/11/22 12/09/22 Rx release atorvastatin 20 mg tablet 20 mg PO DAILY #90 tabs 08/12/22 12/09/22 Rx aspirin 81 mg tablet,delayed 81 mg PO DAILY 12/09/22 12/09/22 History release carvedilol 3.125 mg tablet 3.125 mg PO DAILY 12/09/22 12/09/22 History Allergies Allergy/AdvReac Type Severity Reaction Status Date / Time No Known Allergies Allergy Verified 12/09/22 13:21 Past Med/Surg History Medical History Allergic rhinitis Altered mental status History of viral meningitis Memory loss Meningitis Sensorineural hearing loss (SNHL) of both ears Transient global amnesia Surgical History H/O knee surgery H/O shoulder surgery H/O wisdom tooth extraction History of carpal tunnel surgery S/P gastric surgery Family History Father Hypertension Grandmother Hypertension Grandfather Prostate cancer Uncle Prostate cancer Denies family history of Diabetes Breast cancer Lung cancer Colorectal cancer Social History Smoking Status: Never smoker Tobacco Type: Smokeless Tobacco (Dip or Chew) Age Started Using Tobacco: 18; Age Quit Using Tobacco: 27; Second Hand Exposure: No; Do You Dip or Chew Tobacco: Yes; Hx Alcohol Use: No Hx Substance Use: No Preferred Language: Kazakh Communication Ability: Effective Underwriting Internship Required: No Beliefs That Will Affect Care: None marital status: Current Living Situation: Spouse current occupational status: employed current occupation: [employer] How many Children do You have: 2 Other Information That Helps Us Care for You: No Feels Safe at Home: Yes Safety Concerns: Feels Safe At This Time Childhood Exposure to Second-Hand Smoke: Yes Diet: regular caffeine: Yes (tea, soda) Dental Care, Regularly: No Physical Activity Frequency: Daily Seatbelt Use: always Sunscreen Use: No Assistive Devices: None Review of Systems A total of 10 systems reviewed and were otherwise negative Physical Exam Vital Signs Vital Signs - 24 hr 12/09/22 11:19 12/09/22 11:48 12/09/22 12:36 Temperature 36.7 C Temperature Source Temporal Artery Scan Pulse Rate 83 76 Pulse Rate [Apical] 88 Pulse Rate from SpO2 Sensor Pulse Rhythm [Apical] Regular Pulse Strength [Apical] Respiratory Rate 18 20 Respiratory Effort / Characteristics Non-Labored Non-Labored Spontaneous Respiratory Depth Normal Normal Respiratory Pattern Regular Blood Pressure 145/98 H Blood Pressure [Left Arm] 152/109 H Blood Pressure Mean 113 Blood Pressure Mean [Left Arm] 123 Pulse Oximetry 97 98 Oxygen Delivery Method Room Air Room Air Sepsis Recent Fever Within 48 Hours No Sepsis New/Unexplained Change in Mental Status N/A Sepsis Action Taken by Nursing No Action Required 12/09/22 12:34 12/09/22 13:31 12/09/22 15:11 Temperature Temperature Source Pulse Rate 76 Pulse Rate [Apical] 69 72 Pulse Rate from SpO2 Sensor 77 Pulse Rhythm [Apical] Regular Regular Pulse Strength [Apical] Normal Normal Respiratory Rate 20 20 20 Respiratory Effort / Characteristics Non-Labored Spontaneous Non-Labored Spontaneous Respiratory Depth Normal Normal Respiratory Pattern Regular Regular Blood Pressure 142/96 H Blood Pressure [Left Arm] 141/96 H 141/101 H Blood Pressure Mean 111 Blood Pressure Mean [Left Arm] 111 114 Pulse Oximetry 99 96 98 Oxygen Delivery Method Room Air Sepsis Recent Fever Within 48 Hours Sepsis New/Unexplained Change in Mental Status Sepsis Action Taken by Nursing General: Well developed well nourished middle-age male who appears in no acute distress, breathing comfortably on room air. Normal speech. He is still having difficult time recalling what happened this morning but answers questions appropriately otherwise although somewhat repetitive due to memory issues HEENT: Normal cephalic atraumatic. Pupils are equal round and reactive to light. Extraocular movements are intact. Oropharynx is pink with moist mucous membranes. No swelling of the mouth lips or tongue. Neck: Supple with a midline trachea. No meningeal signs or stiffness, no JVD or bruits. No Stridor. Chest: Clear to auscultation bilaterally. No wheezes or rhonchi. No increased work of breathing. Heart: Regular rate and rhythm without murmurs or gallops. Abdomen: Soft nontender, nondistended without rebound guarding or rigidity. Extremities: No cyanosis clubbing or edema. No calf tenderness or assymetry Spine/Back. Non tender to palpation. No CVA tenderness Skin: Good turgor without rashes. Neurologic exam: Cranial nerves two through 12 are intact. Motor and sensation are intact and symmetrical throughout. No tremor. Course Administered Medications Discontinued Medications Ioversol (Ioversol 350 Mg 125ml Prefilled Syringe) 115 ml IV ONCE ONE Stop: 12/09/22 11:43 Last Admin: 12/09/22 11:42 Dose: 115 ml Documented By: JOSE DANIEL Medical Decision Making Differential Diagnosis Stroke, CVA, transient global amnesia, electrolyte or metabolic abnormality, cardiac disease, to intracranial process Laboratory Data 12/09/22 11:30 12/09/22 11:30 Lab Results 12/09/22 12/09/2223 Range/Units 11:30 11:30 11:30 WBC 5.70 (4.8-10.8) K/ul RBC 5.64 (4.70-6.10) M/uL Hgb 16.1 (14.0-18.0) g/dl POC Hgb (14.0-18.0) g/dl Hct 47.3 (42.0-52.0) % POC Hct (42-52) % MCV 83.9 (80.0-100.0) fL MCH 28.5 (25.0-34.0) pg MCHC 34.0 (32.0-36.0) g/dL RDW Std Deviation 41.0 (36.4-46.3) fL RDW Coeff of Ron 13.3 (11.5-14.5) % Plt Count 216 (130-400) K/uL MPV 9.4 (9.4-12.4) fL Immature Gran % (Auto) 0.4 % Neut % (Auto) 60.2 % Lymph % (Auto) 28.9 % Teller % (Auto) 6.1 % Eos % (Auto) 3.3 % Baso % (Auto) 1.1 % Neut # (Auto) 3.43 (1.40-6.50) K/uL Lymph # (Auto) 1.65 (1.2-3.4) K/uL Teller # (Auto) 0.35 (0.11-0.59) K/uL Eos # (Auto) 0.19 (0-0.50) K/uL Baso # (Auto) 0.06 (0-0.2) K/uL Immature Gran # (Auto) 0.02 (0.01-0.20) K/uL PT 10.8 (9.0-12.0) Seconds INR 1.0 (0.9-1.1) APTT 27.6 (21.0-31.0) Seconds PTT Ratio 1.0 POC Sodium (135-144) mmol/L Sodium 135 L (136-145) mmol/L POC Potassium (3.3-5.0) mmol/L Potassium 3.9 (3.5-5.1) mmol/L POC Chloride (101-112) mmol/L Chloride 103 (98-107) mmol/L Carbon Dioxide 23 (21-32) mmol/L POC Total CO2 (24-31) mmol/L Anion Gap 9 (3-11) POC Anion Gap (16-25) mmol/L POC BUN (7-18) mg/dl BUN 25 H (6-23) mg/dl Creatinine 0.86 (0.6-1.4) mg/dl POC Creatinine (0.6-1.3) mg/dl Est Cr Clr Drug Dosing 110.6 ml/min Est GFR ( Amer) 113.1 ml/min Est GFR (Non-Af Amer) 97.6 ml/min BUN/Creatinine Ratio 29.1 H (10-20) Glucose 151 H (70-99(Fasting)) mg/dl POC Glucose (other) (70-99) mg/dl Calcium 9.2 (8.6-10.3) mg/dl POC Ioniz Calcium Donald (1.12-1.32) mmol/l Magnesium 1.9 (1.7-2.4) mg/dl Total Bilirubin 2.1 H (0.2-1.0) mg/dl AST 26 (13-39) U/L ALT 38 (7-52) U/L Alkaline Phosphatase 80 (34-104) U/L Troponin I High Sens < 2.3 (0-20) pg/ml Total Protein 7.7 (6.0-8.3) gm/dl Albumin 4.6 (3.4-5.0) gm/dl Globulin 3.1 (2.5-4.0) gm/dl Albumin/Globulin Ratio 1.5 (0.9-2) Blood Type Antibody Screen 12/09/22 12/09/22 Range/Units 11:34 11:45 WBC (4.8-10.8) K/ul RBC (4.70-6.10) M/uL Hgb (14.0-18.0) g/dl POC Hgb 16.3 (14.0-18.0) g/dl Hct (42.0-52.0) % POC Hct 48 (42-52) % MCV (80.0-100.0) fL MCH (25.0-34.0) pg MCHC (32.0-36.0) g/dL RDW Std Deviation (36.4-46.3) fL RDW Coeff of Ron (11.5-14.5) % Plt Count (130-400) K/uL MPV (9.4-12.4) fL Immature Gran % (Auto) % Neut % (Auto) % Lymph % (Auto) % Teller % (Auto) % Eos % (Auto) % Baso % (Auto) % Neut # (Auto) (1.40-6.50) K/uL Lymph # (Auto) (1.2-3.4) K/uL Teller # (Auto) (0.11-0.59) K/uL Eos # (Auto) (0-0.50) K/uL Baso # (Auto) (0-0.2) K/uL Immature Gran # (Auto) (0.01-0.20) K/uL PT (9.0-12.0) Seconds INR (0.9-1.1) APTT (21.0-31.0) Seconds PTT Ratio POC Sodium 139 (135-144) mmol/L Sodium (136-145) mmol/L POC Potassium 3.9 (3.3-5.0) mmol/L Potassium (3.5-5.1) mmol/L POC Chloride 101 (101-112) mmol/L Chloride (98-107) mmol/L Carbon Dioxide (21-32) mmol/L POC Total CO2 24 (24-31) mmol/L Anion Gap (3-11) POC Anion Gap 19.0 (16-25) mmol/L POC BUN 26 H (7-18) mg/dl BUN (6-23) mg/dl Creatinine (0.6-1.4) mg/dl POC Creatinine 0.8 (0.6-1.3) mg/dl Est Cr Clr Drug Dosing ml/min Est GFR ( Amer) ml/min Est GFR (Non-Af Amer) ml/min BUN/Creatinine Ratio (10-20) Glucose (70-99(Fasting)) mg/dl POC Glucose (other) 155 H (70-99) mg/dl Calcium (8.6-10.3) mg/dl POC Ioniz Calcium Donald 1.06 L (1.12-1.32) mmol/l Magnesium (1.7-2.4) mg/dl Total Bilirubin (0.2-1.0) mg/dl AST (13-39) U/L ALT (7-52) U/L Alkaline Phosphatase (34-104) U/L Troponin I High Sens (0-20) pg/ml Total Protein (6.0-8.3) gm/dl Albumin (3.4-5.0) gm/dl Globulin (2.5-4.0) gm/dl Albumin/Globulin Ratio (0.9-2) Blood Type B Positive Antibody Screen NEGATIVE Imaging Data Attestation: I personally reviewed and interpreted this imaging study as follows: My Impression: Head CT no hemorrhage or mass effect seen Radiologist's Impression: Head CT 12/09/22 11:26 CT OF THE HEAD WITHOUT CONTRAST CLINICAL HISTORY: neuro deficit, acute stroke suspected COMPARISON STUDY: MRI of the brain April 14, [address] May 26, 2022. TECHNIQUE: Helical axial images of the head were obtained without IV contrast. Automated exposure control was utilized for the study. A dose lowering technique was utilized adhering to the principles of ALARA. FINDINGS: No acute intracranial hemorrhage, midline shift or mass effect is present. The ventricular system is unremarkable. The basal cisterns are patent. No extra-axial collections are present. There are no findings to suggest acute dural sinus thrombosis or acute territorial infarct. No significant calvarial abnormalities are present. Visualized portions of the sinuses and mastoid air cells are clear. IMPRESSION: No acute intracranial findings. ACT 112: Negative or not required by law. Electronically signed by: Omero Browning M.D. 12/09/2022 11:51 AM Head CTA 12/09/22 11:26 CT angio head w con CLINICAL HISTORY: 57 years-old Male with neuro deficit, acute stroke suspected. Acute strokelike symptoms COMPARISON STUDY: CTA head and neck of same day and also 04/14/2019 TECHNIQUE: Following the IV administration of 115 cc of Optiray, CT angiogram of the brain was performed from the skull base to the vertex. Images are reviewed in the axial, sagittal, and coronal planes. 3-D MIPS images are created and assessed. IV contrast was administered without complication. All measurements were obtained according to NASCET criteria. A dose lowering technique was utilized adhering to the principles of ALARA. FINDINGS: CT ANGIOGRAM OF THE BRAIN: The imaged bilateral internal carotid arteries are patent. The bilateral anterior and middle cerebral arteries are also patent. The vertebrobasilar system and posterior cerebral arteries are widely patent. Dominant left vertebral artery with diminutive distal right vertebral artery, likely developmental. There is no aneurysm, high-grade stenosis, or proximal branch occlusion identified. Dural sinuses appear patent. Mild polypoid mucosal thickening of the right maxillary sinus. Mastoid air cells are clear. IMPRESSION: Unremarkable CTA. ACT 112: Negative or not required by law. The above report was generated using voice recognition software. It may contain grammatical, syntax or spelling errors. Electronically signed by: Nghia Darden M.D. 12/09/2022 12:16 PM Neck CTA 12/09/22 11:26 CT ANGIOGRAPHY OF THE NECK WITH CONTRAST CLINICAL HISTORY: neuro deficit, acute stroke suspected COMPARISON STUDY: CTA of the neck April 14, 2019. Technique: CT angiography of the carotid and vertebral arteries was obtained using [employer] and 3D reconstruction on an independent workstation. NASCET criteria was utilized. Automated exposure control was utilized for the study. A dose lowering technique was utilized adhering to the principles of ALARA. CT DOSE: 1335.26 mGy.cm Findings: Visualized portions of the lung apices are unremarkable. There is no cervical lymphadenopathy. There is no cervical spine fracture. The bilateral common carotid and cervical internal carotid arteries are patent. There is minimal plaque within the proximal right internal carotid artery. The left vertebral artery is dominant and patent. The right vertebral artery is diminutive. This is unchanged since CT of April 14, 2019. IMPRESSION: 1. Patent bilateral common carotid and cervical internal carotid arteries. 2. Patent, dominant left vertebral artery. 3. 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 ACT 112: Negative or not required by law. Electronically signed by: Omero Browning M.D. 12/09/2022 11:56 AM ECG Data Attestation: I personally reviewed and interpreted this ECG as follows: Indication: + weakness Rate (beats per minute): 77 Rhythm: + normal sinus ECG Intervals/blocks: + Normal QRS, + Normal QT and + Normal VT ECG [place]: + Normal ECG ST segments: + Normal ST segments ECG Findings: no PACs or no PVCs Comparison ECG Date: from (12/03/21) Change: no significant change MDM Narrative This patient comes in as described above with strokelike symptoms/amnesia. They called me from triage and told me they were in a stroke alert him and wanted to put in angiography orders. I went and saw him immediately. He cannot remember what happened this morning and has amnesia but besides that has otherwise nonfocal neurologic exam we did stroke alert him and I saw him further when he came back in room B1 I did discuss the case with the stroke neurologist Dr. Grewal, she did not feel he met tPA criteria because we could not for certain give the last known well as it was only based on him and he had memory issues. We will try to track down other ways to get this but nobody else new. Additionally his only symptoms are amnesia with the NIH stroke score of 0, which would be another reason not to give the thrombolytics. His EKG does not show ischemia or ectopy, he has no significant electrolyte or metabolic abnormalities. The stroke neurologist did recommend observation MRI EEG and further evaluation. I did consult and discussed the case with Dr. Thacker and the [facility] team will be admitting him for further evaluation. Continuous cardiac monitoring: Orders placed in EMR for continuous cardiac monitoring: Upon my evaluation the patient was noted to be in normal sinus rhythm with a rate of 50 Impression & Plan Transient global amnesia, Stroke-like symptoms Discharge Plan Visit Data Chief Complaint: Confusion Stated Complaint: CONFUSION ED Provider: Rigoberto Neumann Discharge Problem: Transient global amnesia, Stroke-like symptoms Forms Stand Alone Forms: My [facility] Prescriptions Prescriptions: No Action lisinopril 10 mg tablet 10 mg PO DAILY Qty: 90 3RF Rx Instructions: place on file till needed hydrochlorothiazide 25 mg tablet 25 mg PO DAILY Qty: 90 3RF Rx Instructions: place on fiel till needed omeprazole 20 mg capsule,delayed release(DR/EC) 20 mg PO DAILY Qty: 90 3RF Rx Instructions: place on file till needed atorvastatin 20 mg tablet 20 mg PO DAILY Qty: 90 3RF colchicine 0.6 mg tablet 0.6 mg PO .COMPLEX Qty: 3 5RF Rx Instructions: 2 tabs PO once, then 1 tab PO 1 hour later.; PRN cyanocobalamin (vitamin B-12) 100 mcg tablet 100 mcg PO DAILY zinc gluconate 50 mg Tablet 50 mg PO DAILY aspirin [Aspir-Low] 81 mg Tablet,Delayed Release (Dr/Ec) 81 mg PO DAILY carvedilol 3.125 mg tablet 3.125 mg PO DAILY Referrals Referrals: Lyly Lo CRNP [Primary Care Provider] -
[2022-12-09 12:33] LABS: Partial Thromboplastin Time 27.6 Seconds (21.0-31.0); Prothrombin Time 10.8 Seconds (9.0-12.0)
--- NOTE | 2022-12-09 13:38 | History & Physical Report ---
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 Brain MRI wo IV contrast to r/o anterior temporal lobe CVA - will defer further stroke workup unless MRI shows acute CVA Consult neurology for further recommendations (2) Hypertension: Plan: Continue his usual medications as no current symptoms and low suspicion of stroke (3) GERD (gastroesophageal reflux disease): Plan: Switch omeprazole for pantoprazole per hospital formulary Plan VTE Prophylaxis - low risk Diet - heart healthy Disposition - observation status to PCU Admission and Anticipated Discharge Date Admission Date: December 09, 2022 History of Present Illness Chief Complaint: Amnesia Primary Care Provider: RACHAEL Perry Chao Rodriguez is a 57 year old male who presents to the ER with sudden loss of memory. 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 He is unsure of the time this occurred. He was told he called a work colleague saying he didn't feel right backed up by a call out recorded on his phone although he does not remember this and he was brought into the ER by this work colleague. He reports this feels similar to his episode of transient global amnesia in 2019. He denies any extremity weakness, change in sensation, facial droop, change in vision, hearing or speech. No history of seizures. Telestroke was called in the ER and sPA not recommended given NIH score 0 and unknown time of onset. Recommended MRI brain and EEG for further workup. Allergies Allergy/AdvReac Type Severity Reaction Status Date / Time No Known Allergies Allergy Verified 12/09/22 13:21 Home Medications Medication Instructions Recorded Confirmed Type cyanocobalamin (vitamin B-12) 100 100 mcg PO DAILY 02/12/19 12/09/22 History mcg tablet zinc gluconate 50 mg tablet 50 mg PO DAILY 04/14/19 12/09/22 History colchicine 0.6 mg tablet 0.6 mg PO .COMPLEX #3 tabs 12/03/21 12/09/22 Rx lisinopril 10 mg tablet 10 mg PO DAILY #90 tabs 03/11/22 12/09/22 Rx hydrochlorothiazide 25 mg tablet 25 mg PO DAILY #90 tabs 05/11/22 12/09/22 Rx omeprazole 20 mg capsule,delayed 20 mg PO DAILY #90 caps 05/11/22 12/09/22 Rx release atorvastatin 20 mg tablet 20 mg PO DAILY #90 tabs 08/12/22 12/09/22 Rx aspirin 81 mg tablet,delayed 81 mg PO DAILY 12/09/22 12/09/22 History release carvedilol 3.125 mg tablet 3.125 mg PO DAILY 12/09/22 12/09/22 History Past Med/Surg History Medical History Allergic rhinitis Altered mental status History of viral meningitis Memory loss Meningitis Sensorineural hearing loss (SNHL) of both ears Transient global amnesia Surgical History H/O knee surgery H/O shoulder surgery H/O wisdom tooth extraction History of carpal tunnel surgery S/P gastric surgery Family History Father Hypertension Grandmother Hypertension Grandfather Prostate cancer Uncle Prostate cancer Denies family history of Diabetes Breast cancer Lung cancer Colorectal cancer Social History Smoking Status: Former smoker Tobacco Type: Smokeless Tobacco (Dip or Chew) Age Started Using Tobacco: 18; Age Quit Using Tobacco: 27; Second Hand Exposure: No; Do You Dip or Chew Tobacco: Yes; Hx Alcohol Use: No Hx Substance Use: No Preferred Language: Burmese Communication Ability: Effective Conservation Enforcement Officer Required: No Beliefs That Will Affect Care: None marital status: Current Living Situation: Family current occupational status: employed current occupation: [employer] How many Children do You have: 2 Other Information That Helps Us Care for You: No Feels Safe at Home: Yes Safety Concerns: Feels Safe At This Time Childhood Exposure to Second-Hand Smoke: Yes Diet: regular caffeine: Yes (tea, soda) Dental Care, Regularly: No Physical Activity Frequency: Daily Seatbelt Use: always Sunscreen Use: No Assistive Devices: None Review of Systems Review of Systems: All systems reviewed & are unremarkable except as noted in HPI & below Physical Exam Constitutional: WD/WN, vitals as above Eyes: PERRL, conjunctivae normal, anicteric sclerae ENMT: external ear and nose normal, oropharynx normal Respiratory: normal respiratory effort, lungs clear to auscultation Cardiovascular: RRR, no murmur, no edema Gastrointestinal (Abdomen): normal bowel sounds, soft, nontender, no hepatosplenomegaly Musculoskeletal: no cyanosis or clubbing, extremities motor strength 5/5 Skin: no rashes, warm and dry Neurologic: moves all extremities and awake; not confused Speech / Cognition: normal speech Motor/Sensory: no tremor, normal movement, no pronator drift, no asterixis and no sensory deficit Cranial Nerves: PERRL, EOM intact bilaterally, normal facial strength, tongue midline, able to rotate head bilaterally, able to elevate shoulders bilaterally, no nystagmus and symmetric palate elevation Coordination: normal [id number] test Psychiatric: A+Ox3, euthymic affect Results & Data Results & Data Vital Signs (Past 12 Hours) Vital Signs Temp Pulse Pulse Resp BP BP Pulse Ox 12/09/22 13:31 69 20 141/96 H 96 12/09/22 12:34 76 20 142/96 H 99 12/09/22 12:36 76 12/09/22 11:48 88 20 152/109 H 98 12/09/22 11:19 36.7 C 83 18 145/98 H 97 O2 Del Method 12/09/22 13:31 12/09/22 12:34 12/09/22 12:36 12/09/22 11:48 Room Air 12/09/22 11:19 Room Air Laboratory Results Abnormal lab results 12/09/22 12/09/22 Range/Units 11:30 11:34 Sodium 135 L (136-145) mmol/L POC BUN 26 H (7-18) mg/dl BUN 25 H (6-23) mg/dl BUN/Creatinine Ratio 29.1 H (10-20) Glucose 151 H (70-99(Fasting)) mg/dl POC Glucose (other) 155 H (70-99) mg/dl POC Ioniz Calcium Donald 1.06 L (1.12-1.32) mmol/l Total Bilirubin 2.1 H (0.2-1.0) mg/dl Diagnostic Findings CT OF THE HEAD WITHOUT CONTRAST CLINICAL HISTORY: neuro deficit, acute stroke suspected COMPARISON STUDY: MRI of the brain April 14, [address] May 26, 2022. TECHNIQUE: Helical axial images of the head were obtained without IV contrast. Automated exposure control was utilized for the study. A dose lowering technique was utilized adhering to the principles of ALARA. FINDINGS: No acute intracranial hemorrhage, midline shift or mass effect is present. The ventricular system is unremarkable. The basal cisterns are patent. No extra-axial collections are present. There are no findings to suggest acute dural sinus thrombosis or acute territorial infarct. No significant calvarial abnormalities are present. Visualized portions of the sinuses and mastoid air cells are clear. IMPRESSION: No acute intracranial findings. CT angio head w con CLINICAL HISTORY: 57 years-old Male with neuro deficit, acute stroke suspected. Acute strokelike symptoms COMPARISON STUDY: CTA head and neck of same day and also 04/14/2019 TECHNIQUE: Following the IV administration of 115 cc of Optiray, CT angiogram of the brain was performed from the skull base to the vertex. Images are reviewed in the axial, sagittal, and coronal planes. 3-D MIPS images are created and assessed. IV contrast was administered without complication. All measurements were obtained according to NASCET criteria. A dose lowering technique was utilized adhering to the principles of ALARA. FINDINGS: CT ANGIOGRAM OF THE BRAIN: The imaged bilateral internal carotid arteries are patent. The bilateral anterior and middle cerebral arteries are also patent. The vertebrobasilar system and posterior cerebral arteries are widely patent. Dominant left vertebral artery with diminutive distal right vertebral artery, likely developmental. There is no aneurysm, high-grade stenosis, or proximal branch occlusion identified. Dural sinuses appear patent. Mild polypoid mucosal thickening of the right maxillary sinus. Mastoid air cells are clear. IMPRESSION: Unremarkable CTA. CT ANGIOGRAPHY OF THE NECK WITH CONTRAST CLINICAL HISTORY: neuro deficit, acute stroke suspected COMPARISON STUDY: CTA of the neck April 14, 2019. Technique: CT angiography of the carotid and vertebral arteries was obtained using Optiray and 3D reconstruction on an independent workstation. NASCET criteria was utilized. Automated exposure control was utilized for the study. A dose lowering technique was utilized adhering to the principles of ALARA. CT DOSE: 1335.26 mGy.cm Findings: Visualized portions of the lung apices are unremarkable. There is no cervical lymphadenopathy. There is no cervical spine fracture. The bilateral common carotid and cervical internal carotid arteries are patent. There is minimal plaque within the proximal right internal carotid artery. The left vertebral artery is dominant and patent. The right vertebral artery is diminutive. This is unchanged since CT of April 14, 2019. IMPRESSION: 1. Patent bilateral common carotid and cervical internal carotid arteries. 2. Patent, dominant left vertebral artery. 3. 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 Medications Administered ER Medications Given: None ECG Rate (beats per minute): 77 Rhythm: normal sinus Findings: no acute ischemic change Comparison ECG Date: from (April 14, 2019) Change: no significant change Code Status & VTE Plan Code Status Full VTE Prophylaxis Plan VTE Prophylaxis will be ordered: No PG Care Time/CCT Total # of Minutes Spent Total Time Spent with Patient: Total time spent is greater than 50% in coordination of care (as documented) at patient's floor/unit and/or counseling patient: Coding Level of Care Code 62895 INT INP/OBS CARE 3/75MIN Diagnoses Transient global amnesia G45.4 Hypertension I10 Hypertension type: unspecified GERD (gastroesophageal reflux disease) K21.9 Esophagitis presence: without esophagitis (2) Hypertension Hypertension type: unspecified Qualified Code(s): I10 - Essential (primary) hypertension (3) GERD (gastroesophageal reflux disease) Esophagitis presence: without esophagitis Qualified Code(s): K21.9 - Gastro-esophageal reflux disease without esophagitis
--- NOTE | 2022-12-09 15:03 | Electrocardiogram Report ---
Test Reason : Blood Pressure : / mmHG Vent. Rate : 077 BPM Atrial Rate : 077 BPM P-R Int : 144 ms QRS Dur : 094 ms QT Int : 398 ms P-R-T Axes : 051 -10 047 degrees QTc Int : 450 ms Poor data quality, interpretation may be adversely affected Normal sinus rhythm Normal ECG When compared with ECG of 14-APR-2019 09:32, No significant change was found Confirmed by Angelito Ramirez ([id number]) on 12/09/2022 3:03:15 PM Referred By: REFERRED SELF Confirmed By:Angelito Ramirez
[2022-12-09] MEDS ORDERED: ACETAMINOPHEN 325 MG TAB PO PRN (16:12)
--- NOTE | 2022-12-10 07:28 | Magnetic Resonance Report ---
MRI OF THE BRAIN WITHOUT IV CONTRAST CLINICAL HISTORY: Transient global amnesia. COMPARISON STUDY: CT of the brain dated 12/09/2022. TECHNIQUE: MRI of the brain was performed utilizing various T1 and T2-weighted sequences in the axial , sagittal, and coronal planes. IV contrast was not administered for this examination. FINDINGS: Brain parenchyma: The brain parenchyma is normal in appearance. There is no hemorrhage or mass effect . There is no restricted diffusion to suggest acute ischemia. Christensen-white matter differentiation is pr eserved. No extra-axial fluid collection is seen. The cerebellar tonsils are normal in configuration. Ventricles, sulci, and cisterns: Normal in configuration. Pituitary and sella: Unremarkable. Intracranial vasculature: Normal flow voids are maintained at the skull base. Orbits: The bony orbits are grossly intact. Orbital contents are normal in appearance. Sinuses and mastoids: There is trace mucosal thickening in the right maxillary antrum. The remaining paranasal sinuses are clear. There is a right mastoid effusion. Calvarium: Unremarkable. Cervical cord: Partially visualized cervical spinal cord is normal in morphology and signal intensity . IMPRESSION: No acute intracranial abnormality. ACT 112: Negative or not required by law. Electronically signed by: Jose Low M.D. 12/10/2022 7:27 AM
[2022-12-10] MEDS ORDERED: hydroCHLOROthiazide 25 MG TAB PO SCH (09:00)
[2022-12-10] MEDS ORDERED: ATORVASTATIN 20 MG TAB PO SCH (09:00)
[2022-12-10] MEDS ORDERED: lisinopril 10 MG TAB PO SCH (09:00)
[2022-12-10] MEDS ORDERED: PANTOprazole 40 MG TAB PO SCH (09:00)
[2022-12-10] MEDS ORDERED: ASPIRIN 81 MG ECTAB PO SCH (09:00)
[2022-12-10] MEDS ORDERED: carvediloL 3.125 MG TAB PO SCH (09:00)
--- NOTE | 2022-12-10 10:22 | Neurology Consultation ---
Date of Consultation December 10, 2022 Assessment & Plan (1) Transient global amnesia: Patient presents with another episode of TGA. Agree with more thorough workup as it is unusual but not rare to have recurrent TGA - ~10% based on available literature. There is otherwise no structural abnormality noted. Awaiting routine EEG but otherwise can be discharged from our perspective. -- EEG pending - suspect it will be normal -- Would refer to neurology for a follow-up visit in 8 weeks -- Please contact us with further questions Telehealth Consultation Telehealth Information Telehealth Information: I performed this visit using a real-time telehealth connection between my location and the patients location ([facility]). After connecting through interactive tele-video, patient was identified by name and date of and/or wristband check.Patient (or authorized healthcare statement services representative) was informed that this was a telemedicine visit and it was being conducted confidentially over secure lines. My office door was closed and no one else was present in the room with me.Patient (or authorized healthcare statement services representative) provided consent to proceed with the visit, expressed an under standing of privacy and security of the telemedicine visit, and gave permission to have a hospital statement services representative in the room in order to assist with the visit and to conduct portions of the visit, as needed. I informed the patient (or authorized healthcare statement services representative) that I reviewed their record and presented the opportunity for them to ask any questions regarding the visit today. The patient agreed to participate. History of Present Illness Reason for Consultation: Transient global amnesia Requesting Physician: Dr. Smith Attending Physician: Lalo Smith MD History of Present Illness Chao Rodriguez is a 57 yo M presenting with an episode of transient global amnesia yesterday that has since resolved. 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 He has no recollection of the events yesterday. He had a similar episode in 2019 while hunting. Both instances resolved in approximately 8 hours. No other neurologic symptoms - no headache, weakness, numbness, speech or vision changes. He reportedly was asking repetitive questions to his boss yesterday after symptom onset. He also has a history of lyme meningitis but recovered fully more than a year prior to the first TGA episode. Allergies Allergy/AdvReac Type Severity Reaction Status Date / Time No Known Allergies Allergy Verified 12/09/22 13:21 Home Medications Medication Instructions Recorded Confirmed Type cyanocobalamin (vitamin B-12) 100 100 mcg PO DAILY 02/12/19 12/09/22 History mcg tablet zinc gluconate 50 mg tablet 50 mg PO DAILY 04/14/19 12/09/22 History colchicine 0.6 mg tablet 0.6 mg PO .COMPLEX #3 tabs 12/03/21 12/09/22 Rx lisinopril 10 mg tablet 10 mg PO DAILY #90 tabs 03/11/22 12/09/22 Rx hydrochlorothiazide 25 mg tablet 25 mg PO DAILY #90 tabs 05/11/22 12/09/22 Rx omeprazole 20 mg capsule,delayed 20 mg PO DAILY #90 caps 05/11/22 12/09/22 Rx release atorvastatin 20 mg tablet 20 mg PO DAILY #90 tabs 08/12/22 12/09/22 Rx aspirin 81 mg tablet,delayed 81 mg PO DAILY 12/09/22 12/09/22 History release carvedilol 3.125 mg tablet 3.125 mg PO DAILY 12/09/22 12/09/22 History Patient History Medical History Allergic rhinitis Altered mental status History of viral meningitis Memory loss Meningitis Sensorineural hearing loss (SNHL) of both ears Transient global amnesia Surgical History H/O knee surgery H/O shoulder surgery H/O wisdom tooth extraction History of carpal tunnel surgery S/P gastric surgery Family History Father Hypertension Grandmother Hypertension Grandfather Prostate cancer Uncle Prostate cancer Denies family history of Diabetes Breast cancer Lung cancer Colorectal cancer Social History Smoking Status: Former smoker Tobacco Type: Smokeless Tobacco (Dip or Chew) Age Started Using Tobacco: 18; Age Quit Using Tobacco: 27; Second Hand Exposure: No; Do You Dip or Chew Tobacco: Yes; Hx Alcohol Use: No Hx Substance Use: No Preferred Language: Occitan Communication Ability: Effective Revenue Tax Specialist Required: No Beliefs That Will Affect Care: None marital status: Current Living Situation: Family current occupational status: employed 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 Oriented to person, place, and time. Fluent. Comprehension intact. Affect appropriate. Cranial Nerves: II: pupils 3/3 to 2/2 III/IV/: Versions intact without nystagmus VII: Facial expression symmetric VIII: Hearing intact to voice IX/X: Palate elevates symmetrically Motor: Strength was symmetric and antigravity throughout. Pronator drift was absent. There were no abnormal movements. Results & Data Vital Signs (Past 12 Hours) Vital Signs Pulse Pulse Resp BP BP Pulse Ox O2 Del Method 12/10/22 05:13 62 12/10/22 03:00 60 13 95 12/10/22 03:00 111/79 12/10/22 02:30 61 14 95 12/10/22 02:30 116/76 12/10/22 02:00 58 L 14 94 12/10/22 02:00 114/72 12/10/22 01:30 69 17 96 12/10/22 01:30 133/99 12/10/22 01:00 61 13 94 12/10/22 01:00 119/70 12/10/22 00:30 75 20 96 12/10/22 00:30 127/84 12/10/22 00:00 69 15 93 12/10/22 00:00 125/87 12/09/22 23:30 75 16 93 12/09/22 23:30 142/96 H 12/09/22 23:00 73 14 95 12/09/22 23:00 147/112 H 12/09/22 22:30 77 23 94 12/09/22 22:30 140/107 H 12/09/22 22:43 75 18 140/107 H 94 Room Air Laboratory Results Abnormal lab results 12/09/22 12/09/22 Range/Units 11:30 11:34 Sodium 135 L (136-145) mmol/L POC BUN 26 H (7-18) mg/dl BUN 25 H (6-23) mg/dl BUN/Creatinine Ratio 29.1 H (10-20) Glucose 151 H (70-99(Fasting)) mg/dl POC Glucose (other) 155 H (70-99) mg/dl POC Ioniz Calcium Donald 1.06 L (1.12-1.32) mmol/l Total Bilirubin 2.1 H (0.2-1.0) mg/dl Diagnostic Findings MRI brain - Unremarkable
--- NOTE | 2022-12-10 12:22 | Electroencephalogram ---
EEG Procedure Note Date of Service December 10, 2022 Start / End Times Start Time: 11:07 End Time: 11:27 Referring Physician Levi Thacker MD History A 57 year old male with recurrent transient global amnesia. EEG performed for evaluation of epileptiform activity. Home Medication List Medication Instructions Recorded Confirmed Type cyanocobalamin (vitamin B-12) 100 100 mcg PO DAILY 02/12/19 12/09/22 History mcg tablet zinc gluconate 50 mg tablet 50 mg PO DAILY 04/14/19 12/09/22 History colchicine 0.6 mg tablet 0.6 mg PO .COMPLEX #3 tabs 12/03/21 12/09/22 Rx lisinopril 10 mg tablet 10 mg PO DAILY #90 tabs 03/11/22 12/09/22 Rx hydrochlorothiazide 25 mg tablet 25 mg PO DAILY #90 tabs 05/11/22 12/09/22 Rx omeprazole 20 mg capsule,delayed 20 mg PO DAILY #90 caps 05/11/22 12/09/22 Rx release atorvastatin 20 mg tablet 20 mg PO DAILY #90 tabs 08/12/22 12/09/22 Rx aspirin 81 mg tablet,delayed 81 mg PO DAILY 12/09/22 12/09/22 History release carvedilol 3.125 mg tablet 3.125 mg PO DAILY 12/09/22 12/09/22 History Inpatient Medication List Aspirin (Aspirin 81 Mg Ectab) 81 mg PO DAILY [facility] Stop: 01/09/23 08:59 Last Admin: 12/10/22 08:49 Dose: 81 mg Documented By: KEL Atorvastatin Calcium (Atorvastatin 20 Mg Tab) 20 mg PO DAILY [facility] Stop: 01/09/23 08:59 Last Admin: 12/10/22 08:49 Dose: 20 mg Documented By: KEL Carvedilol (Carvedilol 3.125 Mg Tab) 3.125 mg PO DAILY [facility] Stop: 01/09/23 08:59 Last Admin: 12/10/22 08:49 Dose: 3.125 mg Documented By: KEL Hydrochlorothiazide (Hydrochlorothiazide 25 Mg Tab) 25 mg PO DAILY [facility] Stop: 01/09/23 08:59 Last Admin: 12/10/22 08:49 Dose: 25 mg Documented By: KEL Lisinopril (Lisinopril 10 Mg Tab) 10 mg PO DAILY [facility] Stop: 08/27/23 08:59 Last Admin: 12/10/22 08:49 Dose: 10 mg Documented By: KEL Pantoprazole Sodium (Pantoprazole 40 Mg Tab) 40 mg PO DAILY [facility] Stop: 01/09/23 08:59 Last Admin: 12/10/22 08:49 Dose: 40 mg Documented By: KEL Discontinued Medications Ioversol (Ioversol 350 Mg 125ml Prefilled Syringe) 115 ml IV ONCE ONE Stop: 12/09/22 11:43 Last Admin: 12/09/22 11:42 Dose: 115 ml Documented By: JOSE DANIEL Description This is a 21 electrode EEG with a single channel dedicated to limited EKG. The electrodes were placed in accordance with the International 10-20 system. REPORT: At the onset of the EEG the patient is awake. The background is symmetric and well organized. There is a normal anterior to posterior gradient. The posterior dominant rhythm is 10-11 Hz With low-amplitude beta activity in the frontal head regions. Photic stimulation does not induce any abnormalities. drowsiness is characterized by increased theta activity, reduced blink rate, and decreased myogenic artifact. No stage 2 sleep transients are seen. Interpretation IMPRESSION: This is a normal awake and drowsy routine EEG. There is no evidence of focal slowing or epileptiform activity.
--- NOTE | 2022-12-10 12:24 | Discharge Summary ---
Date of Service December 10, 2022 Admission HPI Per Admitting Provider Chao Rodriguez is a 57 year old male who presents to the ER with sudden loss of memory. 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 He is unsure of the time this occurred. He was told he called a work colleague saying he didn't feel right backed up by a call out recorded on his phone although he does not remember this and he was brought into the ER by this work colleague. He reports this feels similar to his episode of transient global amnesia in 2019. He denies any extremity weakness, change in sensation, facial droop, change in vision, hearing or speech. No history of seizures. Telestroke was called in the ER and sPA not recommended given NIH score 0 and unknown time of onset. Recommended MRI brain and EEG for further workup. Principal Diagnosis Transient global amnesia Discharge Exam General-alert and oriented x3, no fevers, no chills HEENT-head atraumatic and normocephalic, pupils equal and reactive to light, extraocular muscles intact Neck-no lymphadenopathy or thyromegaly, trachea midline Chest-clear to auscultation percussion. No rales wheezing or rhonchi Cardiac-regular rate and rhythm, normal S1 and S2 Abdomen-normal bowel sounds, nontender, no hepatosplenomegaly Extremities-no cyanosis, clubbing, or edema Neuro-cranial nerves II through XII intact, motor and sensory function within normal limits, strength symmetrical , no focal deficits Psych-normal affect, normal mood Discharge Data Allergies Allergy/AdvReac Type Severity Reaction Status Date / Time No Known Allergies Allergy Verified 12/09/22 13:21 Consultations 12/09/22 12:39 ED Decision to Admit Stat 12/09/22 19:30 Consult Neurology Routine Ordered Studies 12/09/22 11:26 CT angio head w con Stat CT angio neck with con Stat CT head/brain wo con Stat 12/09/22 13:46 MRI Brain [MR brain wo con] Stat Hospital Course (1) Transient global amnesia: No evidence of CVA. He has been evaluated by neurology. EEG has been completed and the results are pending. He does not need to remain hospitalized . He will remain off work until further notice (2) Hypertension: Stable. All medications remain the same (3) GERD (gastroesophageal reflux disease): Stable. Continue PPI therapy Plan Home today, December 10. Off work until further notice Total Time Total Time Spent Total Time Spent (In Minutes): 45 minutes Discharge Plan Discharge Items Patient Disposition: Home - Self-Care Reason For Visit: TRANSIENT GLOBAL AMNESIA Discharge Diagnosis: Transient global amnesia Activity: Resume your previous activity Activity Comment: Do not drive alone Non-emergency contact: Primary Care Provider Call non-emergency contact if: your symptoms worsen Follow-up/Referrals: Lyly Lo CRNP [Primary Care Provider] - Diet: Regular Addtl Attending Provider Instructions: Off work until further notice Pending Studies at Discharge: Yes Stand-Alone Forms: [employer], Work/School Release, Smoking Cessation Medications and DC Order Prescriptions: Continued lisinopril 10 mg tablet 10 mg PO DAILY Qty: 90 3RF Rx Instructions: place on file till needed hydrochlorothiazide 25 mg tablet 25 mg PO DAILY Qty: 90 3RF Rx Instructions: place on fiel till needed omeprazole 20 mg capsule,delayed release(DR/EC) 20 mg PO DAILY Qty: 90 3RF Rx Instructions: place on file till needed atorvastatin 20 mg tablet 20 mg PO DAILY Qty: 90 3RF colchicine 0.6 mg tablet 0.6 mg PO .COMPLEX Qty: 3 5RF Rx Instructions: 2 tabs PO once, then 1 tab PO 1 hour later.; PRN cyanocobalamin (vitamin B-12) 100 mcg tablet 100 mcg PO DAILY zinc gluconate 50 mg Tablet 50 mg PO DAILY aspirin [Aspir-Low] 81 mg Tablet,Delayed Release (Dr/Ec) 81 mg PO DAILY carvedilol 3.125 mg tablet 3.125 mg PO DAILY Discharge Orders: Discharge Order (Routine); Ordered 12/10/22 Ordered By: Lalo Smith Admission Data Admit Date/Time: 12/09/22 13:46 Attending Provider: Lalo Smith Admit Provider: Levi Thacker Primary Care Provider: Lyly Lo Other Providers: Levi Thacker ; Angelito Cortez Coding Level of Care Code 92613 INP/OBS DISCH >30 MIN Diagnoses Transient global amnesia G45.4 Hypertension I10 Hypertension type: unspecified GERD (gastroesophageal reflux disease) K21.9 Esophagitis presence: without esophagitis
== END 2022-12-10 14:06 | disposition home or self-care (01) ==
LOC: ED 11:02 → EDINP 11:02 → SUATTDRO 13:46 → EDINP 16:06